=== PATIENT | female | born 1945 | race Caucasian/White ===

== ENCOUNTER 2021-11-05 14:50 | Emergency (ER) | payer MEDICARE, MEDICAID, SELFPAY ==
--- NOTE | ~2021-11-05 | XR_ITS ---
EXAMINATION: XR CHEST CLINICAL INFORMATION: Weakness COMPARISON: None TECHNIQUE: 2 views of the chest were obtained. FINDINGS: There are low lung volumes. No lobar or segmental airspace consolidation or definite groundglass opacity. The vascularity is normal. The heart is normal in size. The costophrenic sulci are clear. The hilar and mediastinal contours are normal. No visible acute bony abnormality. There are mild multilevel degenerative changes thoracic spine. XR/XR chest 2V IMPRESSION: Low lung volumes. No vascular congestion, definite airspace opacity, or effusion.
--- NOTE | ~2021-11-05 | CT_ITS ---
EXAMINATION: CT HEAD WITHOUT CONTRAST CLINICAL INFORMATION: Right-sided weakness COMPARISON: None TECHNIQUE: Contiguous axial imaging was performed from the skull base to vertex without intravenous administration of contrast. This CT examination was performed using dose optimization techniques as appropriate, variously including the following: *Automated exposure control *Adjustment of mA and/or kV according to patient size (this includes techniques or standardized protocols for targeted exams where dose is matched to indication/reason for exam; i.e. extremities or head) *Use of iterative reconstruction technique DLP: 1363 mGy-cm FINDINGS: There is no evidence of an extra-axial collection. There is no evidence of intra-axial or extra-axial hemorrhage. The ventricles and extra-axial CSF spaces are slightly prominent suggestive of age related changes. There is mild periventricular white matter disease. There is an old-appearing left basal ganglia lacunar infarct. No mass, mass effect or acute infarct is seen. No skull fracture or bone lesion is seen. There is mild soft tissue opacification of the right inferior mastoid air cells. CT/CT head/brain wo con IMPRESSION: No acute intracranial. Mild generalized atrophy and nonspecific periventricular white matter disease. Old-appearing left basal ganglia lacunar infarct. Findings were communicated to Dr. Trujillo by telephone on 11/05/2021 3:25 PM
--- NOTE | 2021-11-05 15:03 | ECG_ITS ---
Test Reason : STROKE? Blood Pressure : / mmHG Vent. Rate : 080 BPM Atrial Rate : 080 BPM P-R Int : 146 ms QRS Dur : 066 ms QT Int : 374 ms P-R-T Axes : 014 043 036 degrees QTc Int : 431 ms Normal sinus rhythm Normal ECG No previous ECGs available Referred By: Param Trujillo Electronically Signed By:RENATA ESTRADA
[2021-11-05 15:10] VITALS: BP 140/73; O2SAT 96
--- NOTE | 2021-11-05 15:21 | ED.NEUROSD ---
HPI - Neuro Symptoms/Deficit General Chief Complaint: Stroke Stated Complaint: R SIDE DEFICIT,DROOP HALF HOUR AGO PER SNF Time Seen by Provider: 11/05/21 15:02 Source: patient, EMS and other (half-way records) Mode of arrival: EMS History of Present Illness HPI Narrative: Patient without apparent history of TIA or stroke, with a last known well time of 130 when she was interacting with staff at the facility in which she lives, was discovered at 2:00 p.m. to be asleep in leaning to the right and drooling. Staff was concerned and thought she may have had some right-sided weakness. Called EMS for potential stroke. Of note, she apparently does drool when she sleeps. By EMS arrival, patient was moving all extremities normally. Speaking normally. Currently without complaints. She apparently has a history of dementia and is a word of the state. Poor historian secondary to this. Although she is able to hold conversation without difficulty. Related Data Allergies Allergy/AdvReac Type Severity Reaction Status Date / Time No Known Allergies Allergy Unverified 11/05/21 15:03 Review of Systems Constitutional: Comments: No fevers or chills Eyes: Comments: No vision change Cardiovascular: Comments: No chest pain Respiratory: Comments: No shortness of breath Gastrointestinal: Comments: No abdominal pain Integumentary/Breasts: Comments: No rash Neurologic: Comments: Possible transient right-sided weakness. [facility] Past Medical History Medical History (Updated 11/05/21 @ 17:30 by Param Trujillo MD) Anemia Dementia Dysphagia Edema Hyperkalemia OLVERA (nonalcoholic steatohepatitis) Social History Social History Alcohol intake: unknown Patient Tobacco Use Status: Tobacco use Unknown Use of substances other than those prescribed or required for medical reasons: Unknown Advance Directives: No Advance Directives Information Provided: No Physical Exam Vital Signs: Vital Signs: Last Vital Signs Temp 98.2 F 11/05/21 15:30 Pulse 79 11/05/21 17:21 Resp 16 11/05/21 17:21 BP 122/47 L 11/05/21 17:21 Pulse Ox 95 11/05/21 17:21 BMI result Body Mass Index 25.7 Const: Other: Awake and alert no acute distress Neck: Other: No bruits noted Resp: Other: Clear and equal bilaterally Cardio: Other: Regular rate and rhythm without murmurs rubs or gallops GI: Other: Soft nontender nondistended Skin: Other: Warm pink and dry Neuro: Other: Neurologically nonfocal. No facial droop No pronator drift Sales Relationship Manager equal bilaterally No unilateral lower extremity weakness Course Course Course Narrative: Patient with episode of drooling and leaning to the right side. Syncope TIA Seizures possible 5:28 p.m.. Workup in emergency department is reassuring. It is very likely this was not a thromboembolic TIA episode. Given risk benefit of hospitalization and reverse is being discharged to group setting where she will be supervised 08/06, I believe it is safe for discharge home. MDM - Neuro Symptoms/Deficit Lab Data Result diagrams: 11/05/21 15:37 11/05/21 15:37 Labs: Lab Results 11/05/21 11/05/21 11/05/21 Range/Units 15:37 15:37 15:37 WBC 11.3 H (4.8-10.8) X10*3/uL RBC 4.08 L (4.20-5.50) X10*6/uL Hgb 10.9 L (12.0-16.0) g/dl Hct 35.4 L (37.0-47.0) % MCV 86.8 (80.0-98.0) fL MCH 26.7 L (27.0-33.0) pg MCHC 30.8 L (31.0-35.0) g/dl RDW 14.6 (11.0-16.0) % Plt Count 279 (160-400) X10*3/uL MPV 12.2 (9.4-12.3) fL Immature Gran % (Auto) 0.4 (0.0-0.4) % Neut % (Auto) 72.0 (45-73) % Lymph % (Auto) 17.0 L (20-40) % [place] % (Auto) 8.2 (2-11) % Eos % (Auto) 2.1 (0-4) % Baso % (Auto) 0.3 (0-2) % Lymph # (Auto) 1.9 (1.2-4.9) X10*3/uL [place] # (Auto) 0.9 (0.1-1.2) X10*3/uL Eos # (Auto) 0.2 (0.0-0.4) X10*3/uL Baso # (Auto) 0.0 (0.0-0.2) X10*3/uL Abs Immat Gran (auto) 0.04 H (0.00-0.03) X10*3/uL Absolute Neuts (auto) 8.2 (2.0-8.3) x10*3/uL Absolute Nucleated RBC 0.000 (0.0-0.012) X10*3/uL Nucleated RBC % (auto) 0.0 (0.0-0.2) /100WBC PT (9.9-13.0) SEC INR (0.9-1.1) Sodium 141 (135-145) mmol/L Potassium 5.1 (3.3-5.1) mmol/L Chloride 104 (96-108) mmol/L Carbon Dioxide 27 (22-29) mmol/L Anion Gap 15 (12-20) BUN 22 H (9-16) mg/dL Creatinine 0.88 (0.5-1.4) mg/dL Estim Creat Clear Calc 50.3 Estimated GFR > 60 Random Glucose 108 (60-115) mg/dL Calcium 9.8 (8.4-10.2) mg/dL Total Bilirubin 0.3 (0.0-1.0) mg/dL AST 10 (5-31) U/L ALT 10 (0-31) U/L Alkaline Phosphatase 54 (39-117) U/L Total Protein 7.1 (6.5-8.0) g/dL Albumin 3.9 (3.5-5.0) g/dL Urine Color Urine Appearance Urine pH (5.0-8.0) Ur Specific [place] (1.005-1.025) Urine Protein (NEG-TRACE) MG/DL Urine Glucose (UA) (NEG) MG/DL Urine Ketones (NEG) MG/DL Urine Blood (NEG) Urine Nitrite (NEG) Ur Leukocyte Esterase (NEG) Urine RBC (0) /HPF Urine WBC (0-4) /HPF Ur Squamous Epith Cells /LPF Urine Bacteria /LPF COVID-19 (ANGELICA) Negative (Negative) COVID-19 Clin Com See Note 11/05/21 11/05/21 Range/Units 15:37 16:30 WBC (4.8-10.8) X10*3/uL RBC (4.20-5.50) X10*6/uL Hgb (12.0-16.0) g/dl Hct (37.0-47.0) % MCV (80.0-98.0) fL MCH (27.0-33.0) pg MCHC (31.0-35.0) g/dl RDW (11.0-16.0) % Plt Count (160-400) X10*3/uL MPV (9.4-12.3) fL Immature Gran % (Auto) (0.0-0.4) % Neut % (Auto) (45-73) % Lymph % (Auto) (20-40) % [place] % (Auto) (2-11) % Eos % (Auto) (0-4) % Baso % (Auto) (0-2) % Lymph # (Auto) (1.2-4.9) X10*3/uL [place] # (Auto) (0.1-1.2) X10*3/uL Eos # (Auto) (0.0-0.4) X10*3/uL Baso # (Auto) (0.0-0.2) X10*3/uL Abs Immat Gran (auto) (0.00-0.03) X10*3/uL Absolute Neuts (auto) (2.0-8.3) x10*3/uL Absolute Nucleated RBC (0.0-0.012) X10*3/uL Nucleated RBC % (auto) (0.0-0.2) /100WBC PT 11.9 (9.9-13.0) SEC INR 1.0 (0.9-1.1) Sodium (135-145) mmol/L Potassium (3.3-5.1) mmol/L Chloride (96-108) mmol/L Carbon Dioxide (22-29) mmol/L Anion Gap (12-20) BUN (9-16) mg/dL Creatinine (0.5-1.4) mg/dL Estim Creat Clear Calc Estimated GFR Random Glucose (60-115) mg/dL Calcium (8.4-10.2) mg/dL Total Bilirubin (0.0-1.0) mg/dL AST (5-31) U/L ALT (0-31) U/L Alkaline Phosphatase (39-117) U/L Total Protein (6.5-8.0) g/dL Albumin (3.5-5.0) g/dL Urine Color YELLOW Urine Appearance HAZY Urine pH 7.0 (5.0-8.0) Ur Specific [place] 1.010 (1.005-1.025) Urine Protein NEG (NEG-TRACE) MG/DL Urine Glucose (UA) NEG (NEG) MG/DL Urine Ketones NEG (NEG) MG/DL Urine Blood NEG (NEG) Urine Nitrite NEG (NEG) Ur Leukocyte Esterase TRACE H (NEG) Urine RBC 0-2 (0) /HPF Urine WBC 1-4 (0-4) /HPF Ur Squamous Epith Cells TRACE /LPF Urine Bacteria TRACE /LPF COVID-19 (ANGELICA) (Negative) COVID-19 Clin Com NIH Stroke Scale Time: 03:18 Level of Consciousness: Alert Level of Consciousness Questions: Answers both questions correctly Level of Consciousness Commands: Performs both tasks correctly Best Gaze: Normal Visual: No visual loss Facial Palsy: Normal Motor Arm (Right): No drift Motor Arm (Left): No drift Motor Leg (Right): No drift Motor Leg (Left): No drift Limb Ataxia: Absent Sensory: Normal Best Language: No aphasia Dysarthia: Normal Extinction and Inattention: No abnormality Score: 0 Discharge Plan Discharge Clinical Impression: Transient cerebral ischemia Patient Disposition: Home, Self-Care Instructions: Transient Ischemic Attack (ED) Additional Instructions: Workup in emergency department is reassuring. It is possible you had a transient ischemic attack. Be sure to follow-up with your primary care physician as well as Neurology. She referral Referrals: Romina Oliver MD [Physician] - 2 days Interventions: ED Discharge Assessment Last Done: 11/05/21 19:17 Discharge Date/Time: 11/05/21 19:19
[2021-11-05 15:24] VITALS: BP 158/59; PULSE 80; RESP 18; TEMP 36.8; O2SAT 96; BMI 25.7
[2021-11-05 15:30] VITALS: BP 158/59; PULSE 80; RESP 18; TEMP 36.8; O2SAT 96
--- NOTE | 2021-11-05 15:39 | MHC.STROKE ---
11/05/21 EMS PRE-NOTIFIED AT 1443, NOT A STROKE ALERT UNTIL WHEN SHE ARRIVED AT 1450. EXAMINED BY PROVIDER AND TO CT. I CALLED SNF AND SPOKE WITH THE NURSE. SHE SAID THAT THE PATIENT WAS LKW AT 1330 WHILE EATING LUNCH. AT 1400 THE NURSES AID FOUND THE PATIENT DROOLING OUT OF THE RIGHT SIDE OF HER MOUTH AND LEANING TO THE RIGHT (SHE DOES HAVE A HISTORY OF DROOLING). ALSO SOME RIGHT ARM AND LEG WEAKNESS, BY THE TIME THE EMS ARRIVED THE PATIENT WAS BACK TO HER BASELINE ACCORDING TO THE NURSE. THE BASELINE IS THAT SHE WALKS WITH A WALKER WITH ASSIST, SHE CAN EAT ON HER OWN. THEY ARE NOT SURE HOW LONG SHE HAS BEEN AT THIS FACILITY BUT SHE HAS BEEN AT OTHER FACILITIES AND IS ORIGINALLY FROM [facility]. THERE ARE GUARDIANSHIP PAPERS WITH THE PATIENT. THE PATIENT WAS ABLE TO TELL ME HER NAME AND , YOUSIF AND HOLD UP HER RIGHT ARM, AND MOVES THE RIGHT LEG, SHE MAY NEED TO GET UP AND WALK TO TEST GAIT AND DETERMINE IF SHE IS LEANING TO THE RIGHT. I DID A NURSING SWALLOW AND SHE PASSED ALTHOUGH SHE DOES HAVE A SLIGHT DELAY IN HER SWALLOW. SHE HAS A HISTORY OF DYSPHAGIA ON THE NOTES FROM THE LTC FACILITY. I REVIEWED THIS INFORMATION WITH THE PROVIDER. SHE IS EXCLUDED FROM TPA BASED ON HER EXAM AND NON-DISABLING SYMPTOMS MILD AND AT BASELINE. I WILL FOLLOW NEEDED.
[2021-11-05 15:45] LABS: MANUAL DIFF FLAG NO
[2021-11-05 15:50] LABS: Basophils Percent Auto 0.3 % (0-2); Eosinophils Absolute Auto 0.2 X10*3/uL (0.0-0.4); Eosinophils Percent Auto 2.1 % (0-4); Hematocrit 35.4 % (37.0-47.0); Hemoglobin 10.9 g/dl (12.0-16.0); Imm Gran Abs Auto 0.04 X10*3/uL (0.00-0.03); Imm Gran Pct Auto 0.4 % (0.0-0.4); Lymphocytes Absolute Auto 1.9 X10*3/uL (1.2-4.9); Mean Corpuscular HGB Conc 30.8 g/dl (31.0-35.0); Mean Corpuscular Hemoglobin 26.7 pg (27.0-33.0); Mean Corpuscular Volume 86.8 fL (80.0-98.0); Mean Platelet Volume 12.2 fL (9.4-12.3); Monocytes Absolute Auto 0.9 X10*3/uL (0.1-1.2); Monocytes Percent Auto 8.2 % (2-11); Neutrophils Absolute Auto 8.2 x10*3/uL (2.0-8.3); Platelet Count 279 X10*3/uL (160-400); Red Blood Count 4.08 X10*6/uL (4.20-5.50); Red Cell Distribution Width 14.6 % (11.0-16.0); White Blood Count 11.3 X10*3/uL (4.8-10.8)
[2021-11-05 16:00] LABS: Prothrombin Time 11.9 SEC (9.9-13.0)
[2021-11-05 16:03] LABS: COVID-19 Test Negative (Negative); IDNOW Serial# 9DD0AD1C
[2021-11-05 16:06] LABS: Alanine Aminotransferase 10 U/L (0-31); Albumin Level 3.9 g/dL (3.5-5.0); Alkaline Phosphatase 54 U/L (39-117); Anion Gap 15 (12-20); Aspartate Amino Transferase 10 U/L (5-31); Bilirubin Total 0.3 mg/dL (0.0-1.0); Blood Urea Nitrogen 22 mg/dL (9-16); Calcium 9.8 mg/dL (8.4-10.2); Carbon Dioxide 27 mmol/L (22-29); Chloride 104 mmol/L (96-108); Creatinine Clr Calc Pharmacy 50.3; Estimated Glomerular Filt Rate > 60; Glucose Random 108 mg/dL (60-115); Potassium 5.1 mmol/L (3.3-5.1); Sodium 141 mmol/L (135-145); Total Protein 7.1 g/dL (6.5-8.0)
[2021-11-05 16:43] LABS: Appearance Urine HAZY; Color Urine YELLOW; Glucose Urine UA NEG (NEG); Leukocyte Esterase Urine TRACE (NEG); Nitrite Urine NEG (NEG); UACC Culture Trigger YES; Urine Blood NEG (NEG); Urine Ketones NEG (NEG); Urine Protein NEG (NEG-TRACE)
[2021-11-05 16:53] LABS: Bacteria Urine TRACE /LPF; RBC Urine 0-2 /HPF (0); Squamous Epithelial Cell Urine TRACE /LPF
--- NOTE | 2021-11-05 17:20 | PC.NURSE ---
conversational with no acute deficits or distress
[2021-11-05 17:21] VITALS: BP 122/47; PULSE 79; RESP 16; O2SAT 95
--- NOTE | 2021-11-11 12:41 | MHC.STROKE ---
LDL 76, DISCUSSED WITH DR ABEBE AND IT WAS DECIDED NOT TO INCREASE DOSE OF STATIN, TOO CLOSE TO 70, WILL MONITOR AT THE FACILITY.
== END 2021-11-05 19:19 | disposition home or self-care (01) ==
PROVIDERS: Emergency Provider Emergency Medicine; PCP Internal Medicine
DX: G45.9 Transient cerebral ischemic attack, unspecified (principal); F03.90 Unspecified dementia, unspecified severity, without behavioral disturbance, psychotic disturbance, mood disturbance, and anxiety; Z86.73 Personal history of transient ischemic attack (TIA), and cerebral infarction without residual deficits
CPT/HCPCS: 36415; 70450; 71046; 80053; 81001; 85025; 85610; 87086; 87635; 93005; 99284; 99285

== ENCOUNTER 2021-11-06 14:07 | Inpatient (IN) | payer MEDICARE, MEDICAID, SELFPAY ==
[2021-11-06] VITALS (18 sets, daily range): BP systolic 121–178; BP diastolic 63–81; PULSE 68–73; RESP 15–20; TEMP 37; O2SAT 93–97; BMI 30.3
--- NOTE | ~2021-11-06 | CT_ITS ---
EXAMINATION: CTA NECK WITH CONTRAST (STROKE) CTA BRAIN WITH CONTRAST (STROKE) CLINICAL INFORMATION: Suspect acute stroke. Assess for major vessel occlusion. Please call report. COMPARISON: 11/06/2021 CT head same day. TECHNIQUE: CTA of the head and neck was performed in the axial plane from the mediastinum to the skull vertex using 65 mL Omnipaque 350 intravenous contrast. Additional reformatted multiplanar images including maximum intensity projection MIP images are generated on the CT workstation. This CT examination was performed using dose optimization techniques as appropriate, variously including the following: *Automated exposure control *Adjustment of mA and/or kV according to patient size (this includes techniques or standardized protocols for targeted exams where dose is matched to indication/reason for exam; i.e. extremities or head) *Use of iterative reconstruction technique DLP: 1549 mGy-cm FINDINGS: The degree of stenosis determined by criteria similar to NASCET. BRAIN: Postcontrast views demonstrate no evidence for acute infarct, extra-axial fluid collection, hemorrhage, space-occupying process or mass effect. There is evidence of a remote infarct in the left basal ganglia. There is a 5 mm round hypodensity in the left cerebral peduncle, which is a nonspecific finding. The ventricular system and subarachnoid spaces are consistent with mild volume loss without hydrocephalus. The bony structures appear grossly intact. The visualized airspaces are unopacified and there is nasal septal deviation to the right. CHEST CTA: There are partially calcified and noncalcified atheromatous changes throughout the visualized thoracic aortic arch. No significant luminal diameter reduction. There is a bovine origin of the left common carotid artery off the base of the innominate and thoracic aortic arch. There are atheromatous calcifications near the origin of the left subclavian artery without significant luminal diameter reduction. The proximal left common carotid artery demonstrates no significant luminal diameter reduction with some calcified plaque near its origin. The innominate artery is patent and normal in caliber with some calcified plaque at the origin of the right subclavian artery, which appears quite tortuous proximally but no significant focal stenosis. There is tortuosity of the proximal right common carotid artery which is otherwise normal in caliber. The vertebral artery origins are patent and normal in caliber bilaterally with tortuosity noted. NECK CTA: The vertebral arteries appear codominant and demonstrate no significant focal stenosis or segmental occlusion. The common carotid arteries demonstrate scattered calcified plaque throughout without focal stenosis. There is a small focus of calcified plaque at the left carotid bulb with less than 50% diameter reduction stenosis. Tortuosity of the proximal left ICA is noted. Left external carotid artery is patent and normal in caliber. Tiny focus of calcified plaque at the right carotid bulb with no significant luminal narrowing. Right external carotid artery is patent and normal in caliber. Both cervical ICAs are patent and normal in caliber. BRAIN CTA: The intradural vertebral arteries are patent with the left being dominant. The basilar artery, superior cerebellar and posterior cerebral arteries are patent, with a hypoplastic left P1 segment and a origin of the left [employer]. The intracranial internal carotid arteries are patent and normal in caliber with mild scattered mural calcifications through the carotid siphons. The M1 segments are patent and normal in caliber, with a normal appearance to the M2 branches. Centrilobular pulmonary emphysematous changes are seen in the upper lung zones with possible fibrotic changes at the right lung apex. CT/CT angio head neck stroke IMPRESSION: 1. No evidence for extracranial carotid or vertebral occlusion or significant focal stenosis and no evidence for significant intracranial arterial stenosis or occlusion. The major dural venous sinuses are opacified. 2. Generalized diffuse volume loss with a remote infarct in the left basal ganglia with no evidence for acute territorial infarct, significant space-occupying process or mass effect. Note is made of a 5 mm nonspecific hypodensity in the left cerebral peduncle. Recommend MRI of the brain without and with contrast to further assess this. Possibilities include a demyelinating lesion or small neoplasm. The above findings were conveyed directly by phone to Dr. Trujillo in the emergency department at 3:20 PM on 11/06/2021. This critical test result is communicated to: See above.
--- NOTE | ~2021-11-06 | MR_ITS ---
EXAMINATION: MRI OF THE BRAIN WITHOUT CONTRAST CLINICAL INFORMATION: Stroke. COMPARISON: CT head and CTA of the head and neck earlier 11/06/2021. TECHNIQUE: MRI of the brain was obtained using routine sequences without contrast. FINDINGS: There is a small area of restricted diffusion in the right posterior basal ganglia with mild hyperintense T2 and FLAIR signal, and without evidence of hemorrhagic transformation. No mass effect or midline shift is seen. The ventricles and sulci are commensurately prominent consistent with diffuse volume loss. There are moderate areas of hyperintense T2 and FLAIR signal in the periventricular and subcortical white matter, consistent with chronic microvascular ischemic changes. No extra-axial fluid collections are seen. The brainstem and cerebellum are normal. No pathologic magnetic susceptibility artifact is identified on the gradient refocused acquisition. The craniovertebral junction appears normal. There is moderate the fatty marrow. There is a partially empty sella. The major intracranial flow-voids at the level of the [place] are preserved. The dural venous sinus flow-voids are maintained. There is trace fluid at the right mastoid tip. There is mild mucoperiosteal thickening in the ethmoid sinuses. MR/MR head/brain wo con IMPRESSION: 1. There is a small area of acute infarction in the left basal ganglia without evidence of hemorrhagic transformation. No acute infarcts are demonstrated elsewhere and there are no masses or areas of hemorrhage. 2. There is diffuse volume loss and there are chronic microvascular ischemic changes. 3. This critical result was discussed with LEVI Phoenix by telephone on 11/06/2021 at 9:18 PM and it was ascertained that the content and urgency of the report was understood at the time of direct communication.
--- NOTE | ~2021-11-06 | XR_ITS ---
EXAMINATION: XR CHEST CLINICAL INFORMATION: CVA COMPARISON: 11/05/2021 TECHNIQUE: Relative expiratory portable 3:31 PM view of the chest was obtained. FINDINGS: No significant abnormality is noted involving the heart, lungs, mediastinum, bony thorax or soft tissues. XR/XR chest 1V IMPRESSION: Unremarkable examination.
--- NOTE | ~2021-11-06 | XR_ITS ---
EXAMINATION: XR ABDOMEN KUB CLINICAL INDICATION: Rule out metallic foreign body for MRI. COMPARISON: No similar priors. TECHNIQUE: AP view of the abdomen. FINDINGS: No unexpected radiopaque foreign bodies. Nonobstructive bowel gas pattern. Moderate to large amount of stool burden. Opacified urinary bladder and left greater than right collecting systems. No acute osseous abnormalities. Significant thoracolumbar spondylosis. Indeterminate soft tissue calcifications projecting over the left gluteal region. Visualized lung bases are clear. XR/XR KUB IMPRESSION: No unexpected radiopaque foreign bodies. Nonobstructive bowel gas pattern. Moderate to large stool burden.
--- NOTE | ~2021-11-06 | CT_ITS ---
EXAMINATION: CT HEAD WITHOUT CONTRAST (STROKE PROTOCOL) CLINICAL INFORMATION: Stroke protocol. Stroke with right-sided deficit. COMPARISON: Previous head CT from yesterday. TECHNIQUE: Contiguous axial imaging was performed from the skull base to vertex without intravenous administration of contrast. This CT examination was performed using dose optimization techniques as appropriate, variously including the following: *Automated exposure control *Adjustment of mA and/or kV according to patient size (this includes techniques or standardized protocols for targeted exams where dose is matched to indication/reason for exam; i.e. extremities or head) *Use of iterative reconstruction technique DLP: 836 mGy-cm FINDINGS: There is no evidence of an extra-axial collection. There is no evidence of intra-axial or extra-axial hemorrhage. The ventricles and extra-axial CSF spaces are slightly prominent suggestive of age-related changes. There is mild periventricular white matter disease. There is a left basal ganglia lacunar infarct that is similar to yesterday's exam. No mass, mass effect or acute infarct is seen. Review at bone windows is normal. No skull fracture is seen. Paranasal sinuses, left mastoid air cells and middle ears are clear. There is mild soft tissue opacification of the right inferior mastoid air cells. CT/CT head for stroke IMPRESSION: Left basal ganglia lacunar infarct similar to yesterday's exam. No hemorrhage. This could be further evaluated with MRI. This critical result was discussed with Dr. Trujillo at 2:40 PM on 11/06/2021. It was ascertained that the content and urgency of the report was understood at the time of direct communication.
--- NOTE | 2021-11-06 14:15 | ECG_ITS ---
Test Reason : STROKE Blood Pressure : / mmHG Vent. Rate : 069 BPM Atrial Rate : 069 BPM P-R Int : 152 ms QRS Dur : 068 ms QT Int : 412 ms P-R-T Axes : 058 056 048 degrees QTc Int : 441 ms Normal sinus rhythm Normal ECG When compared with ECG of 05-NOV-2021 15:23, No significant change was found Referred By: Param Trujillo Electronically Signed By:RENATA ESTRADA
--- NOTE | 2021-11-06 14:16 | ED_ITS ---
HPI - Neuro Symptoms/Deficit General Chief Complaint: Stroke Stated Complaint: STROKE ALERT ,R SIDE DEFICIT,LKWT 1HOUR Time Seen by Provider: 11/06/21 14:15 Source: patient, EMS, RN notes reviewed and old records reviewed History of Present Illness HPI Narrative: Patient seen here yesterday for a transient right-sided deficit with a negative workup. Discharged for outpatient TIA workup. Today she had witnessed onset of right-sided weakness again. Apparently she was being assisted in the shower by nursing staff when she developed a right facial droop with right arm and leg weakness. Still symptomatic upon EMS arrival and arrival to the hospital. EMS as her speech has gotten worse since their arrival. Patient denies headache. No other recent illnesses or complaints No prior history of stroke Related Data Allergies Allergy/AdvReac Type Severity Reaction Status Date / Time No Known Allergies Allergy Unverified 11/05/21 15:03 Review of Systems Review of Systems: Patient with aphasia limiting review of systems Cardiovascular: Comments: Regular rate and rhythm without murmurs rubs or gallops [facility] Past Medical History Medical History (Updated 11/06/21 @ 15:58 by Param Trujillo MD) Anemia Dementia Dysphagia Edema Hyperkalemia OLVERA (nonalcoholic steatohepatitis) Social History Social History Alcohol intake: unknown Patient Tobacco Use Status: Tobacco use Unknown Use of substances other than those prescribed or required for medical reasons: No Advance Directives: No Advance Directives Information Provided: No Physical Exam Vital Signs: Vital Signs: Last Vital Signs Pulse 70 11/06/21 15:45 Resp 17 11/06/21 15:45 BP 142/73 H 11/06/21 15:45 Pulse Ox 95 11/06/21 15:45 BMI result Body Mass Index 30.3 Const: Other: Awake. No apparent distress Eyes: Other: Pupils equal round reactive to light without dysconjugate gaze Resp: Other: Clear and equal bilaterally Cardio: Other: Regular rate and rhythm without murmurs rubs or gallops GI: Other: Soft nontender nondistended Skin: Other: Warm pink dry without rash Neuro: Other: Patient is awake. Right facial droop Right arm weakness Right leg weakness Aphasia with difficulty word finding and slurred speech Course Course Course Narrative: Patient with right-sided deficits secondary to acute stroke. Rule out intracranial hemorrhage Rule out large vessel occlusion Immediate neurologic consultation. Dr. Benito macedo to see the patient in the emergency department. CT scan shows no evidence of intracranial hemorrhage. TPA ordered. TPA was mixed shortly after patient arrival to prevent delays. 2:[address] angiography results assessing for possible large vessel occlusion. 3:57 p.m.. There is no large vessel occlusion. Will hospitalize MDM - Neuro Symptoms/Deficit Lab Data Result diagrams: 11/06/21 15:23 11/06/21 15:23 Labs: Lab Results 11/06/21 11/06/21 Range/Units 14:25 15:23 WBC 9.2 (4.8-10.8) X10*3/uL RBC 3.91 L (4.20-5.50) X10*6/uL Hgb 10.7 L (12.0-16.0) g/dl Hct 34.1 L (37.0-47.0) % MCV 87.2 (80.0-98.0) fL MCH 27.4 (27.0-33.0) pg MCHC 31.4 (31.0-35.0) g/dl RDW 14.8 (11.0-16.0) % Plt Count 248 (160-400) X10*3/uL MPV 12.2 (9.4-12.3) fL Immature Gran % (Auto) 0.2 (0.0-0.4) % Neut % (Auto) 59.0 (45-73) % Lymph % (Auto) 29.4 (20-40) % [place] % (Auto) 8.8 (2-11) % Eos % (Auto) 2.4 (0-4) % Baso % (Auto) 0.2 (0-2) % Lymph # (Auto) 2.7 (1.2-4.9) X10*3/uL [place] # (Auto) 0.8 (0.1-1.2) X10*3/uL Eos # (Auto) 0.2 (0.0-0.4) X10*3/uL Baso # (Auto) 0.0 (0.0-0.2) X10*3/uL Abs Immat Gran (auto) 0.02 (0.00-0.03) X10*3/uL Absolute Neuts (auto) 5.5 (2.0-8.3) x10*3/uL Absolute Nucleated RBC 0.000 (0.0-0.012) X10*3/uL Nucleated RBC % (auto) 0.0 (0.0-0.2) /100WBC POC Glucose 95 (60-115) mg/dL NIH Stroke Scale Time: 14:53 Level of Consciousness: Alert Level of Consciousness Questions: Answers both questions correctly Level of Consciousness Commands: Performs both tasks correctly Best Gaze: Normal Visual: No visual loss Facial Palsy: Partial paralysis Motor Arm (Right): Some effort against gravity Motor Arm (Left): No drift Motor Leg (Right): No drift Motor Leg (Left): Some effort against gravity Limb Ataxia: Absent Sensory: Normal Best Language: Mild to moderate aphasia Dysarthia: Mild to moderate dysarthria Extinction and Inattention: No abnormality Score: 8 Critical Care Time Critical Care Time Total Critical Care Time: 120 Attestation: Critical care time outside separately billable procedures. Acute stroke with thrombolytics therapy Discharge Plan Discharge Patient Disposition: Admitted As Inpatient
[2021-11-06 14:32] LABS: Glucose, Whole Blood 95 mg/dL (60-115)
[2021-11-06] MEDS: iohexoL 350 MG/ML 100 ML INFUS..BTL IV (14:45)
--- NOTE | 2021-11-06 15:08 | PM.NEUROCN ---
History of Present Illness Data of Consult Service Date: 11/06/21 [facility] Reason for consult: Stroke 76 years old woman with acute onset of right-sided weakness came to emergency room. Apparently it started about half an hour before. She had stroke-like symptoms yesterday and came to emergency room with resolution of symptoms and mostly negative workup and was discharged. Today she came back with new weakness. There was no associated pain or headache or nausea or vomiting or any speech or language difficulty. There was no chest pain or shortness of breath. Review of Systems Review of Systems: As in HPI [facility] Past Medical History Medical History (Updated 11/06/21 @ 15:11 by Romina Oliver MD) Anemia Dementia Dysphagia Edema Hyperkalemia OLVERA (nonalcoholic steatohepatitis) Social History Social History Alcohol intake: unknown Patient Tobacco Use Status: Tobacco use Unknown Meds Allergies Allergy/AdvReac Type Severity Reaction Status Date / Time No Known Allergies Allergy Unverified 11/05/21 15:03 Physical Exam Neuro: Other: She was drowsy but promptly able to open eyes make a conversation and follow commands. In between she would close her eyes. There was mild right-sided facial flatness. Visual mitchell are full. Speech was normal. She denied that there was any pain. She told me her name and followed one-step commands. Right arm was moderately weak. She was able to lift each leg up against gravity. Results Labs Labs: Noncontrast head CT did not reveal any acute abnormality. Assessment and Plan (1) Stroke: Status: Acute 76 years old woman with acute onset of right-sided weakness. On examination she has right face and arm weakness more than leg. Head CT did not reveal any acute pathology. With suspicion of acute ischemic infarct my advice was to treat her with intravenous tPA. An MRI of brain without contrast is recommended for tomorrow. Otherwise her CTA results were pending. If any large vessel disease is detected intra-arterial treatment can be considered Procedures Date of Service Date of Service: 11/06/21
--- NOTE | 2021-11-06 15:25 | MHC.STROKE ---
Addendum entered by Lillie Baker RN 11/07/21 14:45: CLARIFICATION ON [id number] (TPA ALTEPLASE) = 39 MINUTES, I SPOKE WITH DR CRISOSTOMO AND HE EXAMINED THE PATIENT IN PERSON, SHE HAS A HISTORY OF SCHIZOAFFECTIVE DISORDER AND SHE IS FROM A LTC PSYCH FACILITY, IT WAS IMPORTANT FOR THE CARE TEAM TO DETERMINE ELIGIBILITY PRIOR TO TPA, SHE WOULDN'T MOVE BOTH LEGS, THEN SHE DID MOVE THEM, SHE WAS ANSWERING QUESTIONS, THEN SHE WASN'T , HER EXAM WAS INCONSISTENT, I WAS PRESENT THROUGHOUT THIS TIME FRAME. Addendum entered by Lillie Baker RN 11/06/21 16:56: I REVIEWED LTC NOTES FROM [facility] [place] [facility] [place]. SHE HAS BEEN A [facility] OF THE [facility] SINCE 2016. HER PMH AND MEDICATIONS ARE INCLUDED. I GAVE THIS PAPAERWORK TO DR BERNARD. Addendum entered by Lillie Baker RN 11/06/21 15:37: NO LVO ON CTA H/N, [place] [facility] [place] Original Note: 1406 EMS PRE-NOTIFIED STROKE ALERT, ARRIVED AT 1407, WITNESSED ONSET WHILE IN SHOWER WITH STAFF MEMBER AT APPROX. [address]10. DIRECT TO CT, DOOR-TO-CT = 9 MINUTES, NO BLEED, AND CTA H/N DONE WITH 7 MINUTE DELAY, AWAITING CALL BACK TO SEE IF SHE IS A LVO AND A THROMBECTOMY CANDIDATE. NIHSS = 8 DONE UPON ARRIVAL, RIGHT SIDED WEAKNESS FACIAL DROOP, RIGHT ARM FLACID, RIGHT LEG WEAK BUT MOVES. SEE DR JOSE'S NIHSS AND DOCUMENTATION. DR CRISOSTOMO AT THE BEDSIDE, ELIBIBLE FOR TPA (ALTEPLASE) BP 158/74, TPA BOLUS GIVEN AT 1446 OVER 1 MINUTE, ALTEPLASE DRIP HUNG IMMEDIATELY AFTER BOLUS FINISHED. CFLS-MK-[id number] = 39 MINUTES, KEEPING PATIENT NPO, NURSING SWALLOW SCREEN FAILED, RE-TEST IN 6 HOURS. FREQUENT VITALS AND NEURO'S BEING DONE, PATIENT IS NOW MOVING RIGHT ARM AND HOLDING IT UP WITH ONLY A SLIGHT DRIFT. STROKE EDUCATION INITIATED AND PATIENT IS ABLE TO UNDERSTAND. I WILL CONTINUE TO FOLLOW.
[2021-11-06 15:40] LABS: MANUAL DIFF FLAG NO
--- NOTE | 2021-11-06 15:40 | PC.NURSE ---
pt brought to ed [facility]. per ems at approximately 1310 pt was being given a bath and was noted to be weak and limp on the right side along with facial drooping. on arrival to ed pt brought to ct scan and TPA given per doctor's order and stroke protocol. vss as documented. reported off to oncoming 3-11 RN.
[2021-11-06 15:49] LABS: Basophils Percent Auto 0.2 % (0-2); Eosinophils Absolute Auto 0.2 X10*3/uL (0.0-0.4); Eosinophils Percent Auto 2.4 % (0-4); Hematocrit 34.1 % (37.0-47.0); Hemoglobin 10.7 g/dl (12.0-16.0); Imm Gran Abs Auto 0.02 X10*3/uL (0.00-0.03); Imm Gran Pct Auto 0.2 % (0.0-0.4); Lymphocytes Absolute Auto 2.7 X10*3/uL (1.2-4.9); Lymphocytes Percent Auto 29.4 % (20-40); Mean Corpuscular HGB Conc 31.4 g/dl (31.0-35.0); Mean Corpuscular Hemoglobin 27.4 pg (27.0-33.0); Mean Corpuscular Volume 87.2 fL (80.0-98.0); Mean Platelet Volume 12.2 fL (9.4-12.3); Monocytes Absolute Auto 0.8 X10*3/uL (0.1-1.2); Monocytes Percent Auto 8.8 % (2-11); Neutrophils Absolute Auto 5.5 x10*3/uL (2.0-8.3); Platelet Count 248 X10*3/uL (160-400); Red Blood Count 3.91 X10*6/uL (4.20-5.50); Red Cell Distribution Width 14.8 % (11.0-16.0); White Blood Count 9.2 X10*3/uL (4.8-10.8)
--- NOTE | 2021-11-06 15:52 | PC.NURSE ---
Assumed care of pt at this time: Pt lethargic but easily arousalable. Neuro assessment: No gauze noted but pt mainly R sided weakness vs L side. Drift also noted to R arm. Pupils 3-4mm equal and reactive. NSR and rales ausculated to lungs. Dry non productive cough noted. Pt abd rounded and non-tenderness. pricing coordinator was at bedside. Alteplase infusion will be complete in 3mins. Vitals remain stable.
[2021-11-06 15:58] LABS: Alanine Aminotransferase 10 U/L (0-31); Albumin Level 3.7 g/dL (3.5-5.0); Alkaline Phosphatase 53 U/L (39-117); Anion Gap 15 (12-20); Aspartate Amino Transferase 9 U/L (5-31); Bilirubin Total 0.3 mg/dL (0.0-1.0); Blood Urea Nitrogen 20 mg/dL (9-16); Calcium 9.6 mg/dL (8.4-10.2); Carbon Dioxide 26 mmol/L (22-29); Chloride 104 mmol/L (96-108); Creatinine Clr Calc Pharmacy 51.3; Estimated Glomerular Filt Rate > 60; Glucose Random 96 mg/dL (60-115); Potassium 4.7 mmol/L (3.3-5.1); Sodium 140 mmol/L (135-145)
[2021-11-06 16:02] LABS: COVID-19 Test Negative (Negative)
--- NOTE | 2021-11-06 16:05 | PC.NURSE ---
Alteplase completed infusion at this time
[2021-11-06 17:40] LABS: Troponin-I High Sensitivity < 3.5 ng/L (<3.5-17.0)
--- NOTE | 2021-11-06 18:02 | PC.NURSE ---
Unable to verify pt hx in terms of implants and foreign bodies via pt herself, and pt's family. MD Trujillo made aware and order placed for KUB (ABD and pelvis)- portable. Pending completion of this and then pt may go for MRI. RN will continue to monitor.
--- NOTE | 2021-11-06 18:33 | PHA.MEDREC ---
MED REC COMPLETE, NO ISSUES Pharmacy Consult ? Medication Reconciliation Pharmacy has completed the medication reconciliation.
--- NOTE | 2021-11-06 20:08 | P.HPCC_ITS ---
History of Present Illness Date of Service: 11/06/21 Attending physician on admission: Justin Leone Chief Complaint: right sided weakness Patient is a 76yo F with a past med hx of dementia, schizoaffective disorder, COPD on serevent, HTN, DM2 with neuropathy (MOSHE allergic), dyslipidemia, stres s/urgency urinary incontinence, chronic constipation, KEISHA non compliant with CPAP, OLVERA, anemia, hyperK, GERD, Parkinsonian tremor coming from [facility]. The pt had just been showered by the staff at the nursing home and when they went back to see her, she had a right sided facial droop so they called 911. EMS said pts symptoms were progressing during the ride to [facility], notably right sided facial weakness, aphasia, right sided arm and leg weakness. LKW time is approx 30-60 min [employer]. In the ED, ED physician noted the same symptoms, Dr Oliver evaluated pt, head CT was neg for hemmorhage and tPA was given at 2:46pm. ED physician stated her symptoms have improved slightly since tPA was given, notably the arm and leg weakness. According to [facility] records, pt normally ambulates with a walker. She is vaccinated for Covid-19x2 with a booster on 09/05/21 and flu on 09/25/21 Of note, pt was evaluated in this ED yesterday by the same ED physican but ruled out for a stroke as her workup was negative. Patients legal guardian and medical rep is Securities Research Analysttrina Trevizo [phone] and her brother is Leo Huertas [phone]. Her PCP at [facility] is Debra Limon [phone]. Pt will get an MRI and be admitted to the ICU for monitoring s/p stroke with tPA. Review of Systems Review of Systems: pt denies any sob, chest pain or abdominal pain Yes all other systems are reviewed and are negative Neurologic: Reports Abnormal speech present [facility] Past Medical History Medical History (Updated 11/06/21 @ 23:39 by Tammi Pulido PA-C) Anemia Dementia Dysphagia Edema Hyperkalemia OLVERA (nonalcoholic steatohepatitis) Social History Social History Housing: Other Housing Other:: [facility]. Do you presently have visiting nurse or other home services: No Alcohol intake: unknown Patient Tobacco Use Status: Tobacco use Unknown Use of substances other than those prescribed or required for medical reasons: No Advance Directives: No Advance Directives Information Provided: No Do you have thoughts of harming others: None Do you have a plan to hurt others: No Plan Recently lost weight without trying: Unsure Patient : No : No Poor oral hygiene: No Meds Allergies Allergy/AdvReac Type Severity Reaction Status Date / Time MOSHE Inhibitors Allergy Unknown Unknown Verified 11/06/21 23:27 aspirin Allergy Unknown unknown Verified 11/06/21 23:26 erythromycin base Allergy Unknown unknown Verified 11/06/21 23:26 NSAIDS (Non-Steroidal Allergy Unknown Unknown Verified 11/06/21 23:27 Anti-Inflamma Penicillins Allergy Unknown unknown Verified 11/06/21 23:28 Active Medications: Current Medications Pharmacy Consult (Consult Rx Perform Med Rec) 1 each MISCELLANE ONCE PRN PRN Reason: Consult order Sodium Chloride (0.9 % Sodium Chloride Flush 3 Ml Syringe) 3 ml IVFLUSH [facility] Home Medications Medication Instructions Recorded Confirmed Last Taken Type acetaminophen 500 mg tablet 1,000 mg PO BID 11/06/21 11/06/21 11/06/21 History clozapine 200 mg tablet 200 mg PO DAILY@1600 11/06/21 11/06/21 11/04/21 History clozapine 25 mg tablet 25 mg PO DAILY@1600 11/06/21 11/06/21 11/04/21 History clozapine 50 mg tablet 50 mg PO DAILY 11/06/21 11/06/21 11/06/21 History ergocalciferol (vitamin D2) 1,250 1,250 mcg PO QMONTH 11/06/21 11/06/21 Unknown History mcg (50,000 unit) capsule famotidine 20 mg tablet 20 mg PO DAILY 11/06/21 11/06/21 11/06/21 History haloperidol 1 mg tablet 1 mg PO DAILY 11/06/21 11/06/21 11/06/21 History metformin 1,000 mg tablet 1,000 mg PO BID 11/06/21 11/06/21 11/06/21 History salmeterol 50 mcg/dose blister 1 inh INHALATION BID 11/06/21 11/06/21 11/06/21 History powder for inhalation (Serevent Diskus) sennosides 8.6 mg tablet (senna) 17.2 mg PO BID 11/06/21 11/06/21 11/06/21 History simvastatin 10 mg tablet 10 mg PO QPM 11/06/21 11/06/21 11/04/21 History Physical Exam Vital Signs: Vital Signs: Last Vital Signs Pulse 68 11/06/21 19:24 Resp 16 11/06/21 19:24 BP 169/64 H 11/06/21 19:24 Pulse Ox 95 11/06/21 19:24 BMI result Body Mass Index 30.3 Const: General: cooperative, healthy appearing, comfortable, no acute distress and well developed Orientation/consciousness: patient oriented x3 Limitations: ambulation with walker HENMT: Head: Yes normal to inspection Face and sinus: No face symmetric (right sided facial droop) Eyes: General: appearance normal, both eyes and all related structures Pupils: Equal, round and reactive pupils present EOM: EOMs intact bilaterally Neck: Neck: Yes normal visual inspection and Yes full ROM Resp: Effort & Inspection: normal respiratory effort and able to speak in complete sentences Auscultation: clear to auscultation bilaterally Cardio: Rate: regular rate Rhythm: regular rhythm Heart sounds: normal S1 and S2 GI: Inspection: Yes normal to inspection Palpation (GI): Soft to palpation and nontender Skin: General skin exam: no rashes or lesions noted Neuro: General: patient oriented x3 and Unable to assess gait Cranial nerves: Yes Equal, round and reactive pupils present Cognition (Neuro): normal cognition Speech: Abnormal speech present Details: slurred Gait exam (Neuro): Unable to assess gait Motor exam (neuro): strength not 5/5 throughout (4/5 left side, 5/5 right side) Extrem: General: Yes normal to inspection and Yes no pedal edema Results Labs CBC and Chem 7: 11/06/21 15:23 11/06/21 15:23 Labs: Laboratory Results - last 24 hr 11/06/21 11/06/21 11/06/21 14:25 15:23 15:23 MCV 87.2 MCH 27.4 MCHC 31.4 RDW 14.8 Plt Count 248 MPV 12.2 Immature Gran % (Auto) 0.2 Neut % (Auto) 59.0 Lymph % (Auto) 29.4 Bartholomew % (Auto) 8.8 Eos % (Auto) 2.4 Baso % (Auto) 0.2 Lymph # (Auto) 2.7 Bartholomew # (Auto) 0.8 Eos # (Auto) 0.2 Baso # (Auto) 0.0 Abs Immat Gran (auto) 0.02 Absolute Neuts (auto) 5.5 Absolute Nucleated RBC 0.000 Nucleated RBC % (auto) 0.0 Anion Gap 15 Estim Creat Clear Calc 51.3 Estimated GFR > 60 POC Glucose 95 Random Glucose 96 Calcium 9.6 Total Bilirubin 0.3 AST 9 ALT 10 Alkaline Phosphatase 53 Troponin I High Sens Total Protein 7.0 Albumin 3.7 COVID-19 (ANGELICA) COVID-19 Clin Com 11/06/21 11/06/21 15:23 15:23 MCV MCH MCHC RDW Plt Count MPV Immature Gran % (Auto) Neut % (Auto) Lymph % (Auto) Bartholomew % (Auto) Eos % (Auto) Baso % (Auto) Lymph # (Auto) Bartholomew # (Auto) Eos # (Auto) Baso # (Auto) Abs Immat Gran (auto) Absolute Neuts (auto) Absolute Nucleated RBC Nucleated RBC % (auto) Anion Gap Estim Creat Clear Calc Estimated GFR POC Glucose Random Glucose Calcium Total Bilirubin AST ALT Alkaline Phosphatase Troponin I High Sens < 3.5 Total Protein Albumin COVID-19 (ANGELICA) Negative COVID-19 Clin Com See Note Imaging Radiologist's Impressions: Impressions Head CT 11/06/21 14:22 IMPRESSION: Left basal ganglia lacunar infarct similar to yesterday's exam. No hemorrhage. This could be further evaluated with MRI. This critical result was discussed with Dr. Trujillo at 2:40 PM on 11/06/2021. It was ascertained that the content and urgency of the report was understood at the time of direct communication. Head/Neck CTA 11/06/21 14:40 IMPRESSION: 1. No evidence for extracranial carotid or vertebral occlusion or significant focal stenosis and no evidence for significant intracranial arterial stenosis or occlusion. The major dural venous sinuses are opacified. 2. Generalized diffuse volume loss with a remote infarct in the left basal ganglia with no evidence for acute territorial infarct, significant space-occupying process or mass effect. Note is made of a 5 mm nonspecific hypodensity in the left cerebral peduncle. Recommend MRI of the brain without and with contrast to further assess this. Possibilities include a demyelinating lesion or small neoplasm. The above findings were conveyed directly by phone to Dr. Trujillo in the emergency department at 3:20 PM on 11/06/2021. This critical test result is communicated to: See above. Chest X-Ray 11/06/21 15:35 IMPRESSION: Unremarkable examination. KUB X-Ray 11/06/21 18:17 IMPRESSION: No unexpected radiopaque foreign bodies. Nonobstructive bowel gas pattern. Moderate to large stool burden. Assessment and Plan (1) Stroke: Status: Acute (2) Dementia: Status: Acute (3) OLVERA (nonalcoholic steatohepatitis): Status: Acute (4) COPD (chronic obstructive pulmonary disease): Status: Acute (5) DM2 (diabetes mellitus, type 2): Status: Acute (6) GERD (gastroesophageal reflux disease): Status: Acute (7) HLD (hyperlipidemia): Status: Acute (8) Schizoaffective disorder: Status: Acute (9) KEISHA (obstructive sleep apnea): Status: Acute (10) Incontinence of urine in female: Status: Acute (11) Chronic constipation: Status: Acute (12) Parkinsonian tremor: Status: Acute (13) Chronic hyponatremia: Status: Acute Patient given tPA at 2:46pm on 11/06/21, will monitor for 24 hours in ICU. Patient to get MRI tonight, echo ordered for tomorrow. Will continue home psych meds. Pt had trace leukocyte esterase in urine yesterday, will repeat.
[2021-11-06 21:37] LABS: Glucose, Whole Blood 101 mg/dL (60-115)
[2021-11-06] MEDS: 0.9 % Sodium Chloride Flush 3 ML SYRINGE IVFLUSH (23:26)
[2021-11-06 23:52] LABS: Appearance Urine CLEAR; Color Urine YELLOW; Glucose Urine UA NEG (NEG); Leukocyte Esterase Urine NEG (NEG); Nitrite Urine NEG (NEG); PH 5.5 (5.0-8.0); Specific Gravity - Urine 1.015 (1.005-1.025); Urine Blood NEG (NEG); Urine Ketones NEG (NEG); Urine Protein NEG (NEG-TRACE)
[2021-11-07] VITALS (17 sets, daily range): BP systolic 99–177; BP diastolic 50–80; PULSE 69–80; RESP 16–22; TEMP 36.1–37.3; O2SAT 92–98; BMI 28.4
--- NOTE | 2021-11-07 03:11 | PC.NURSE ---
CARE ASSUMED 23;15...AWAKE SPONTANEOUSLY..CONVERSES..ORIENTED TO PERSON ONLY..MILD RIGHT FACIAL DROOP...YOUSIF...EQUAL STRONG HANDGRASPS...MILD RIGHT LEG WEAKNESS BUT RAISES RIGHT LEG OFF BED SPONTANEOUSLY...INTERMITTANTLY AGITTED AND RESISTANT TO CARE....REFUSES SAO2 MONITORING..PULLED OFF MULTIPLE SAO2 PROBES...SAO2 94-96% ON ROOM AIR..ICU PA AWARE..TO SPOT CHECK SAO2...ZAVALA WITH LOW OUTPUT OVERNIGHT...PREVIOUSLY INCONTINANT LARGE AMOUNT PER SHIFT REPORT PRIOR TO ZAVALA INSERTION..TO MONITOR OUTPUT OVERNIGHT PER PA...NSR..NO ECTOPY..BP STABLE..COCCYX WITH PURPLISH DISCOLORATION...POSITIONED TO SIDE BUT PATIENT REMOVES PILLOW EACH TIME...DENIES VISUAL DIFFICULTY
[2021-11-07 05:50] LABS: MANUAL DIFF FLAG NO
[2021-11-07 05:57] LABS: Basophils Percent Auto 0.2 % (0-2); Eosinophils Absolute Auto 0.2 X10*3/uL (0.0-0.4); Eosinophils Percent Auto 2.5 % (0-4); Hematocrit 33.9 % (37.0-47.0); Hemoglobin 10.8 g/dl (12.0-16.0); Imm Gran Abs Auto 0.03 X10*3/uL (0.00-0.03); Imm Gran Pct Auto 0.3 % (0.0-0.4); Lymphocytes Absolute Auto 2.5 X10*3/uL (1.2-4.9); Lymphocytes Percent Auto 26.9 % (20-40); Mean Corpuscular HGB Conc 31.9 g/dl (31.0-35.0); Mean Corpuscular Hemoglobin 27.6 pg (27.0-33.0); Mean Corpuscular Volume 86.5 fL (80.0-98.0); Mean Platelet Volume 12.3 fL (9.4-12.3); Monocytes Absolute Auto 0.8 X10*3/uL (0.1-1.2); Monocytes Percent Auto 8.3 % (2-11); Neutrophils Absolute Auto 5.6 x10*3/uL (2.0-8.3); Neutrophils Percent Auto 61.8 % (45-73); Platelet Count 243 X10*3/uL (160-400); Red Blood Count 3.92 X10*6/uL (4.20-5.50); Red Cell Distribution Width 14.8 % (11.0-16.0); White Blood Count 9.1 X10*3/uL (4.8-10.8)
[2021-11-07 06:11] LABS: Anion Gap 19 (12-20); Blood Urea Nitrogen 18 mg/dL (9-16); Calcium 9.6 mg/dL (8.4-10.2); Carbon Dioxide 20 mmol/L (22-29); Chloride 106 mmol/L (96-108); Cholesterol 168 mg/dL; Estimated Glomerular Filt Rate > 60; Glucose Random 125 mg/dL (60-115); HDL Cholesterol 43 mg/dL; LDL Cholesterol Calculated 76 mg/dl; Potassium 4.9 mmol/L (3.3-5.1); Sodium 140 mmol/L (135-145); Triglycerides 248 mg/dL
[2021-11-07 07:24] LABS: Glucose, Whole Blood 120 mg/dL (60-115)
[2021-11-07 08:57] LABS: Prothrombin Time Whole Bld POC 12.2 sec (11.1-13.5)
--- NOTE | 2021-11-07 09:11 | MHC.STROKE ---
Addendum entered by Lillie Baker RN 11/07/21 14:36: DISCUSSED CASE WITH DR BERNARD, PATIENT IS STABLE AND CAN BE TRANSFERRED OUT OF ICU TO A MONITORED UNIT. SHE CAN START ANTIPLATELET ASPIRIN 81MG AFTER 1600 TODAY. SHE WILL ALSO NEED VTE PROPHYLAXIS. I DID PASS THIS ON TO THE HOSPITALIST SERVICE. SEEN BY PT, SEE NOTES. Original Note: I MET WITH THE PATIENT TODAY, HER MAP WAS LESS THAN 90 A FEW TIMES DURING THE NIGHT, LOW URINE OUTPUT. I NOTIFIED DR BERNARD AND HE HAS ORDERED IVF. I DID A BEDSIDE NURSING SWALLOW SCREEN AND SHE PASSED BUT SHE HAS A SLIGHT DELAY IN SWALLOW. I DID NOTIFY SPEECH AND THEY WILL DO A SWALLOW EVALUATION AND RECOMMEND A DIET. I REVIEWED ALL OF THIS WITH THE NURSE IRASEMA. CURRENTLY SHE IS HAVING A BEDSIDE ECHO. HER MRI + FOR A LEFT BASAL GANGLIA ISCHEMIC STROKE WHICH CORRELATED WITH HER SYMPTOMS. I WILL CONTINUE TO FOLLOW.
[2021-11-07] MEDS: 0.9 % Sodium Chloride Flush 3 ML SYRINGE IVFLUSH ×2 (10:24→16:29)
[2021-11-07] MEDS: Lactated Ringers 1,000 ML 500 ML IV (10:36)
[2021-11-07 11:24] LABS: Glucose, Whole Blood 114 mg/dL (60-115)
--- NOTE | 2021-11-07 11:52 | P.PNCC_ITS ---
Subjective Subjective Date of Service: 11/07/21 Interval History: Mrs. Huertas was admitted to ICU yesterday for monitoring after being given tPA for a stroke. See yesterday?s H&P for details.? The patient is a 76yo F.? BIBA with right hemiparesis and dysphasia.? Head CT neg for hemorrhage.? tPA was given.? Her right sided weakness and dysphagia improved somewhat while still in the ED. CT angio showed no occlusion or focal stenosis.? There was generalized volume loss.? There was remote infarct in left basal ganglia. ?MRI last night showed a small area of acute infarction in the left basal ganglia. On arrival to the ICU, speech was slurred.? According to the admission note, motor strength was rated as 4/5 on left, and 5/5 on the right. Overnight the patient did well.? This morning she is fully awake.? See vital signs below.? She is breathing easy, with sat 95-98% on room air.? She still has some mild dysphagia and word-finding difficulty.? She passed a bedside swallow eval.? She has a very slight right eye droop and slight right facial droop. ?On neurologic testing, she has barely discernible weakness of the right upper extremity, and probably normal strength in the right lower extremity. LABORATORY DATA:? Below.? Transthoracic echo:? The study was fairly normal, notable findings were grade 1 diastolic dysfunction. IMPRESSION: Acute left basal ganglia infarction. ?Starting ASA this evening. ?Continue simvastatin.? F/U per Dr. Oliver. Stable for transfer to med surg.? I will sign out to the hospitalists. Time:? [id number] Critical Care Time (minutes): 0 Physical Exam Vital Signs: Vital Signs: Last Vital Signs Temp 99.1 F 11/07/21 10:00 Pulse 73 11/07/21 11:05 Resp 18 11/07/21 11:00 BP 108/63 11/07/21 11:05 Pulse Ox 92 11/07/21 11:05 BMI result Body Mass Index 28.4 Objective Data Labs CBC & Chem 7: 11/07/21 05:16 11/07/21 05:16 Labs: Laboratory Results - last 24 hr 11/06/21 11/06/21 11/06/21 14:25 14:26 15:23 WBC 9.2 RBC 3.91 L Hgb 10.7 L Hct 34.1 L MCV 87.2 MCH 27.4 MCHC 31.4 RDW 14.8 Plt Count 248 MPV 12.2 Immature Gran % (Auto) 0.2 Neut % (Auto) 59.0 Lymph % (Auto) 29.4 Harney % (Auto) 8.8 Eos % (Auto) 2.4 Baso % (Auto) 0.2 Lymph # (Auto) 2.7 Harney # (Auto) 0.8 Eos # (Auto) 0.2 Baso # (Auto) 0.0 Abs Immat Gran (auto) 0.02 Absolute Neuts (auto) 5.5 Absolute Nucleated RBC 0.000 Nucleated RBC % (auto) 0.0 Whole Blood PT 12.2 Whole Blood INR 1.0 Sodium Potassium Chloride Carbon Dioxide Anion Gap BUN Creatinine Estim Creat Clear Calc Estimated GFR POC Glucose 95 Random Glucose Calcium Total Bilirubin AST ALT Alkaline Phosphatase Troponin I High Sens Total Protein Albumin Triglycerides Cholesterol LDL Cholesterol, Calc HDL Cholesterol Urine Color Urine Appearance Urine pH Ur Specific [place] Urine Protein Urine Glucose (UA) Urine Ketones Urine Blood Urine Nitrite Ur Leukocyte Esterase COVID-19 (ANGELICA) [employer] 11/06/21 11/06/21 11/06/21 15:23 15:23 15:23 WBC RBC Hgb Hct MCV MCH MCHC RDW Plt Count MPV Immature Gran % (Auto) Neut % (Auto) Lymph % (Auto) Harney % (Auto) Eos % (Auto) Baso % (Auto) Lymph # (Auto) Harney # (Auto) Eos # (Auto) Baso # (Auto) Abs Immat Gran (auto) Absolute Neuts (auto) Absolute Nucleated RBC Nucleated RBC % (auto) Whole Blood PT Whole Blood INR Sodium 140 Potassium 4.7 Chloride 104 Carbon Dioxide 26 Anion Gap 15 BUN 20 H Creatinine 0.83 Estim Creat Clear Calc 51.3 Estimated GFR > 60 POC Glucose Random Glucose 96 Calcium 9.6 Total Bilirubin 0.3 AST 9 ALT 10 Alkaline Phosphatase 53 Troponin I High Sens < 3.5 Total Protein 7.0 Albumin 3.7 Triglycerides Cholesterol LDL Cholesterol, Calc HDL Cholesterol Urine Color Urine Appearance Urine pH Ur Specific [place] Urine Protein Urine Glucose (UA) Urine Ketones Urine Blood Urine Nitrite Ur Leukocyte Esterase COVID-19 (ANGELICA) Negative [employer] See Note 11/06/21 11/06/21 11/07/21 21:33 23:30 05:16 WBC 9.1 RBC 3.92 L Hgb 10.8 L Hct 33.9 L MCV 86.5 MCH 27.6 MCHC 31.9 RDW 14.8 Plt Count 243 MPV 12.3 Immature Gran % (Auto) 0.3 Neut % (Auto) 61.8 Lymph % (Auto) 26.9 Harney % (Auto) 8.3 Eos % (Auto) 2.5 Baso % (Auto) 0.2 Lymph # (Auto) 2.5 Harney # (Auto) 0.8 Eos # (Auto) 0.2 Baso # (Auto) 0.0 Abs Immat Gran (auto) 0.03 Absolute Neuts (auto) 5.6 Absolute Nucleated RBC 0.000 Nucleated RBC % (auto) 0.0 Whole Blood PT Whole Blood INR Sodium Potassium Chloride Carbon Dioxide Anion Gap BUN Creatinine Estim Creat Clear Calc Estimated GFR POC Glucose 101 Random Glucose Calcium Total Bilirubin AST ALT Alkaline Phosphatase Troponin I High Sens Total Protein Albumin Triglycerides Cholesterol LDL Cholesterol, Calc HDL Cholesterol Urine Color YELLOW Urine Appearance CLEAR Urine pH 5.5 Ur Specific [place] 1.015 Urine Protein NEG Urine Glucose (UA) NEG Urine Ketones NEG Urine Blood NEG Urine Nitrite NEG Ur Leukocyte Esterase NEG COVID-19 (ANGELICA) COVID-19 [employer] 11/07/21 11/07/21 11/07/21 05:16 07:21 11:20 WBC RBC Hgb Hct MCV MCH MCHC RDW Plt Count MPV Immature Gran % (Auto) Neut % (Auto) Lymph % (Auto) Harney % (Auto) Eos % (Auto) Baso % (Auto) Lymph # (Auto) Harney # (Auto) Eos # (Auto) Baso # (Auto) Abs Immat Gran (auto) Absolute Neuts (auto) Absolute Nucleated RBC Nucleated RBC % (auto) Whole Blood PT Whole Blood INR Sodium 140 Potassium 4.9 Chloride 106 Carbon Dioxide 20 L Anion Gap 19 BUN 18 H Creatinine 0.84 Estim Creat Clear Calc 49.0 Estimated GFR > 60 POC Glucose 120 H 114 Random Glucose 125 H Calcium 9.6 Total Bilirubin AST ALT Alkaline Phosphatase Troponin I High Sens Total Protein Albumin Triglycerides 248 Cholesterol 168 LDL Cholesterol, Calc 76 HDL Cholesterol 43 Urine Color Urine Appearance Urine pH Ur Specific [place] Urine Protein Urine Glucose (UA) Urine Ketones Urine Blood Urine Nitrite Ur Leukocyte Esterase COVID-19 (ANGELICA) COVID-19 Clin Com Quality Stroke Does the patient have a stroke diagnosis?: Yes Reason for No Anti-thrombotic by Day Two: N/A - Med Ordered VTE Prior VTE?: No VTE Risk Level:: Medical - low VTE Device Contraindication: N/A - Device Ordered VTE Drug Contraindication: Treatment Not Indicated
--- NOTE | 2021-11-07 14:14 | MHC.SL.SWA ---
Speech Pathologist Impression: Oralpharyngeal Dysphagia Risk of Aspiration Due to: Reduced Cognition Dysphasia Diet Status: Upgrade Liquid Consistency and Strategies for Safe Swallow: Liquid Intake Recommendation: Thin Liquid Intake Strategies: Small Sips Solid Food Consistency: Dietary Recommendations: Grnd/Mech Altered (NDD2) Additional Modifications to Solid Foods: Oral Medication Intake: Whole with Puree Compensatory Strategies and Precautions to be Taken for Safe Swallow: Supervision While Eating and Drinking for Safe Swallow: Total Assistance Foods to Avoid: Difficult or hard to chew foods Swallowing Recommended Treatments: Compens. Strategy Educat. Recommendation for Speech: Inpatient Speech Therapy Comment: Pt presents with mild delay initiating swallow on all consistencies, and delayed oral phase on solids due to being edentulous. No clinical s/s aspiration on any consistency noted on today's evaluation. Recommend start THIN liquids, with GROUND/MECHANICAL Diet (NDD2) with Pills Whole in Puree. Pt. has difficulty masticating food, and would benefit from this softer diet consistency. Pt was able to drink/eat, but it is effortful at this time due to R sided weakness, and may be impulsive in amounts per bite or sip: Pt would benefit from assistance and monitoring during meals. Diet recommendations given verbally to MD and Nursing, followed by secure text to MD, Nursing, Irrigator Gravity Flow, Dietary. CAD TECHNICIAN to follow while inpatient to monitor toleration of diet consistency recommended, advance as needed. Frequency/Duration: Date Range for Service Req: Timeline to reassess: Production Zone Leader Clinican/Clinical Fellow: No Supervisory Statement: I have reviewed and agree with the student/clinical fellow's documentation: N/A Speech Language Pathologist: Vani Chatterjee M.A., CCC-CAD TECHNICIAN
[2021-11-07 16:13] LABS: Glucose, Whole Blood 126 mg/dL (60-115)
[2021-11-07] MEDS: cloZAPine 25 MG TABLET PO (16:28)
[2021-11-07] MEDS: metFORMIN HCl 1,000 MG TABLET 1000 MG PO (16:28)
[2021-11-07] MEDS: cloZAPine 100 MG TABLET 200 MG PO (16:28)
--- NOTE | 2021-11-07 16:50 | CA_ITS ---
Transthoracic Echocardiogram Patient (Last, First, Middle): Savanna Huertas, Gender: Female Date of : 1945 Age: 76 Procedure Date: 11/07/2021 Procedure Type: Transthoracic Echocardiogram Location: ICU Height: 152.4 cm Weight: 65.77 kg BSA: 1.63 m2 Heart Rate: bpm BP: 115 / 61 mmHg Geology Teacher: MARIAH Referring MD: Justin Leone MD Symptoms: Stroke Study Quality: Fair ECG Rhythm: Sinus Conclusions: - The left ventricular systolic function is normal. The visually estimated ejection fraction is between 60-65%. - There is mild calcification of the aortic valve. - Small plaque is seen in the sino tubular ridge. Findings Left Ventricle Normal left ventricular cavity size. There is normal left ventricular wall thickness. The left ventricular systolic function is normal. The visually estimated ejection fraction is between 60-65%. There is no evidence of regional wall motion abnormalities. Evidence suggests grade I (mild) diastolic dysfunction. Right Ventricle Normal right ventricular cavity size and systolic function. Atria Both atria are normal in size. Aortic Valve There is a normal trileaflet aortic valve. There is mild calcification of the aortic valve. There is no aortic valve stenosis. There is no aortic valve regurgitation. Mitral Valve The mitral valve appears normal. There is no mitral valve regurgitation. There is no mitral valve stenosis. Pulmonic Valve The pulmonic valve was not well visualized. Tricuspid Valve There is no tricuspid valve regurgitation. The pulmonary artery systolic pressure is over estimated. Great Vessels The asc aorta is normal in size. Small plaque is seen in the sino tubular ridge. Venous The inferior vena cava was not well visualized. The inferior vena cava is normal in size. Pericardium/Pleural Likely pericardial fat with trace effusion. Prior Study Comparison No prior study available for comparison. Measurements 2D Linear Measurements IVSd: 0.98 0.6-0.9/0.6-1.0 cm LVIDd: 3.60 3.9-5.3/4.2-5.9 cm LVIDd Index: 2.21 2.4-3.2/2.2-3.1 cm/m2 LVIDs: 2.48 2.0-3.6 cm LVPWd: 0.97 0.7-1.1 cm Ao Root: 3.00 2.1-3.5 cm LA Diam: 3.00 2.7-3.8/3.0-4.0 cm LAIDs Index: 1.84 1.5-2.3 cm/m2 LV Mass: 128.98 67-162/88-224 g LV Mass Index: 79.13 43-95/49-115 g/m2 LVOT Diam: 2.00 3.0+(-)1.3 cm Mitral Valve MV Pk E: 0.55 MV PK A: 0.87 MV Decel Time: 325.00 E/A: 0.60 E'Lateral: 7.83 E'Medial: 7.18 E/E' Med: 7.60 E/E' Lat: 7.00 PHT: 95.00 MVA PHT: 2.32 Decel Kent: 1.69 Aortic Valve AoV Pk Jayden: 0.83 AoV Mn Jayden: 0.51 AoV VTI: 0.16 AoV Pk Grad: 3.00 Aov Mn Grad: 1.00 ALVINA Cont.VTI: 2.04 LVOT LVOT Pk Jayden: 0.59 LVOT Mn Jayden: 0.37 LVOT VTI: 0.10 LVOT Pk Grad: 1.00 LVOT Mn Grad: 1.00 LVOT Diam: 2.00 LVOT Area: 3.14 Diastolic Function MV Pk E: 0.55 MV Pk A: 0.87 E/A: 0.60 E'Medial: 7.18 E/E' Med: 7.60 E' Laterial: 7.83 E/E' Lat: 7.00 Right Ventricle TAPSE (mm): 1.74 TVS' Jayden: 9.14 Tricuspid Valve RA Press: 8.00 Great Vessels Aorta Ao Root-2D: 3.00 2.0-3.7 cm Ao Asc: 2.30 2.1-3.4 cm Updated in Other Vendor System with Status of Final Allen Shaikh MD electronically signed on 11/07/2021 12:11:55 PM with status of Final
[2021-11-07 20:09] LABS: Glucose, Whole Blood 104 mg/dL (60-115)
[2021-11-07] MEDS: Atorvastatin Calcium 10 MG TABLET PO (21:11)
[2021-11-07] MEDS: Sennosides 8.6 MG TABLET 17.2 MG PO (21:11)
[2021-11-07] MEDS: Acetaminophen 325 MG TABLET 650 MG PO (21:11)
--- NOTE | 2021-11-07 21:35 | MHC.STROKE ---
PATIENT HAS AN ALLERGY TO ASPIRIN, CAN CONSIDER AN ALTERNATE ANTIPLATELET MEDICATION.
[2021-11-08] MEDS: 0.9 % Sodium Chloride Flush 3 ML SYRINGE IVFLUSH (00:31)
[2021-11-08 03:00] VITALS: BP 127/61; PULSE 63; RESP 17; TEMP 36; O2SAT 96
[2021-11-08 05:50] VITALS: BMI 25.3
[2021-11-08 07:00] VITALS: BP 119/54; PULSE 63; RESP 18; TEMP 36.5; O2SAT 98
[2021-11-08 07:39] LABS: Glucose, Whole Blood 110 mg/dL (60-115)
--- NOTE | 2021-11-08 09:38 | MHC.CM.PN ---
Addendum entered by Maren Monreal 11/08/21 13:14: GUARDIAN NOTIFIED OF DC VIA T/C Addendum entered by Maren Monreal 11/08/21 11:24: PT IS CLEARED TO DC BACK TO [facility] TODAY CM CALLED SNF AND SPOKE TO CHARGE NURSE ON THE 3RD FLOOR WHERE PT RESIDES HE REPORTED THEY WOULD BE ABLE TO TAKE PT BACK THIS AFTERNOON HE ALSO REQUESTED PTS DC PAPERWORK BE FAXED TO [phone] PT WILL DC BACK TO [facility] AT 1730 HOURS TODAY VIA [facility] Original Note: CM CONTACTED PTS LEGAL GUARDIAN, ABBIE ACUÑA [phone]. PT IS A LTC RESIDENT OF [facility] [place] SHE IS ABLE TO AMBULATE WITH A WALKER PTS PCP IS CHASE OLMEDO GUARDIANSHIP IS ON FILE IMM DELIVERED VIA T/C, A COPY WILL BE EMAILED TO ALMA ACUÑA PER HER REQUEST. EMAIL ADDRESS PROVIDED: [email or web address] DC PLAN IS FOR PT TO RETURN TO LTC AT [facility] VIA [facility]
--- NOTE | 2021-11-08 10:36 | MHC.SL.SWA ---
Speech Pathologist Impression: Oralpharyngeal Dysphagia Risk of Aspiration Due to: Reduced Cognition Dysphasia Diet Status: Upgrade Liquid Consistency and Strategies for Safe Swallow: Liquid Intake Recommendation: Thin Liquid Intake Strategies: Small Sips No Straws Solid Food Consistency: Dietary Recommendations: Grnd/Mech Altered (NDD2) Additional Modifications to Solid Foods: Oral Medication Intake: Whole with Puree Compensatory Strategies and Precautions to be Taken for Safe Swallow: Sitting Upright (90 deg) Liquids from Cup Alternate Liquids/Solids Supervision While Eating and Drinking for Safe Swallow: Total Assistance Foods to Avoid: Difficult or hard to chew foods Swallowing Recommended Treatments: Compens. Strategy Educat. Recommendation for Speech: Inpatient Speech Therapy Comment: Pt presents with mild delay initiating swallow on all consistencies, and delayed oral phase on solids due to being edentulous. No clinical s/s aspiration on any consistency noted on today's evaluation. Recommend start THIN liquids, with GROUND/MECHANICAL Diet (NDD2) with Pills Whole in Puree. Pt. has difficulty masticating food, and would benefit from this softer diet consistency. Pt was able to drink/eat, but it is effortful at this time due to R sided weakness, and may be impulsive in amounts per bite or sip: Pt would benefit from assistance and monitoring during meals. Diet recommendations given verbally to MD and Nursing, followed by secure text to MD, Nursing, Applied Computer Science Professor, Dietary. On 11/08 Pt was observed taking breakfast. Pt needed some assistance setting up tray, preparing food for bite sized pieces, but was otherwise able to feed self. Pt tolerating diet consistencies recommended well, no clinical s/s aspiration on liquid or solid consistencies noted. Continue with recommended diet. Frequency/Duration: Date Range for Service Req: Timeline to reassess: Entry Level Accounting Clerk Clinican/Clinical Fellow: No Supervisory Statement: I have reviewed and agree with the student/clinical fellow's documentation: N/A Speech Language Pathologist: Vani Chatterjee M.A., CCC-SENIOR WINDOWS SYSTEMS ADMINISTRATOR
[2021-11-08] MEDS: cloZAPine 25 MG TABLET 50 MG PO (11:01)
[2021-11-08] MEDS: Sennosides 8.6 MG TABLET 17.2 MG PO (11:03)
[2021-11-08] MEDS: Famotidine 20 MG TABLET PO ×2 (11:03→11:04)
[2021-11-08] MEDS: metFORMIN HCl 1,000 MG TABLET 1000 MG PO ×2 (11:03→17:54)
[2021-11-08] MEDS: Acetaminophen 325 MG TABLET 650 MG PO (11:03)
--- NOTE | 2021-11-08 11:08 | P.DS_ITS ---
DS: Providers Provider Date of Service: 11/08/21 Date of admission: 11/06/21 16:50 Primary care physician: Debra Limon MD Consults: 11/06/21 16:50 Consult to Neurology Routine Consulting Provider: Romina Oliver Reason for consultation: Stroke 11/07/21 14:15 Consult to Hospitalist Routine Consulting Provider: Arsenio Flores Reason For Exam: ICu downgrade DS: Diagnosis Discharge Diagnosis (1) Stroke: Status: Resolved (2) Dementia: (3) OLVERA (nonalcoholic steatohepatitis): (4) COPD (chronic obstructive pulmonary disease): (5) DM2 (diabetes mellitus, type 2): (6) GERD (gastroesophageal reflux disease): (7) HLD (hyperlipidemia): (8) Schizoaffective disorder: (9) KEISHA (obstructive sleep apnea): (10) Incontinence of urine in female: (11) Chronic constipation: (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 The patient is a 76yo F.? BIBA with right hemiparesis and dysphasia.? Head CT neg for hemorrhage.? tPA was given.? Her right sided weakness and dysphagia improved somewhat while still in the ED. CT angio showed no occlusion or focal stenosis.? There was generalized volume loss.? There was remote infarct in left basal ganglia. ?MRI last night showed a small area of acute infarction in the left basal ganglia. On arrival to the ICU, speech was slurred.? According to the admission note, motor strength was rated as 4/5 on left, and 5/5 on the right. Overnight the patient did well.? This morning she is fully awake.? See vital signs below.? She is breathing easy, with sat 95-98% on room air.? She still has some mild dysphagia and word-finding difficulty.? She passed a bedside swallow eval.? She has a very slight right eye droop and slight right facial droop. ?On neurologic testing, she has barely discernible weakness of the right upper extremity, and probably normal strength in the right lower extremity. Data: Transthoracic echo:? The study was fairly normal, notable findings were grade 1 diastolic dysfunction. IMPRESSION: ?Acute left basal ganglia infarction. ?To continue Statin, was not started on Aspirin due to unknown listed allergy, will therefore start Plavix instead To return to SNF Time Spent with Patient Time attestation: Total time spent providing and/or coordinating discharge services: Discharge coordination time: Greater than 30 minutes Quality: Stroke Does the patient have a stroke diagnosis?: No Physical Exam 2 Verdana 4l Vital Signs: Verdana 4d Verdana 4d Vital Signs: Verdana 4d Verdana 4Bd Last Vital Signs Verdana 4d College Teacher New 4d College Teacher New 4d Temp 97.7 F 11/08/21 07:00 College Teacher New 4d Pulse 63 11/08/21 07:00 College Teacher New 4d Resp 18 11/08/21 07:00 BP 119/54 L 11/08/21 07:00 Pulse Ox 98 11/08/21 07:00 BMI result Body Mass Index 25.3 Const: Other: General: AO X 3, no acute distress Resp: CTA bilateral CVS: S1,S2,RRR GI: +BS, NT, no distention Skin: No rash Neuro: motor grossly intact Psych: appropriate affect DS: Data Data Completed and Pending Labs on day of discharge: Laboratory Results - last 24 hr 11/07/21 11/07/21 11/07/21 11:20 16:08 20:02 POC Glucose 114 126 H 104 11/08/21 07:25 POC Glucose 110 Discharge Plan Discharge Anticipated Discharge Date/Time: 11/07/21 15:27 Patient Disposition: Xfer SNF Discharge Diagnosis: Stroke Referrals: Debra Limon MD [Primary Care Provider] - 1 Week Discharge Medications: New clopidogrel [Plavix] 75 mg tablet 75 mg PO DAILY Qty: 30 0RF Continued acetaminophen 500 mg Tablet 1,000 mg PO BID 0RF clozapine 200 mg Tablet 200 mg PO DAILY@1700 0RF Rx Instructions: TAKES WITH 25 MG TABLET FOR TOTAL DOSE OF 225 MG clozapine 25 mg Tablet 25 mg PO DAILY@1700 0RF Rx Instructions: TAKES WITH 200 MG TABLET FOR TOTAL DAILY DOSE OF 225 MG clozapine 50 mg Tablet 50 mg PO DAILY 0RF famotidine 20 mg Tablet 20 mg PO DAILY 0RF haloperidol 1 mg Tablet 1 mg PO DAILY 0RF Hold Instructions: Per MD decision at [facility] metformin 1,000 mg Tablet 1,000 mg PO BID 0RF sennosides [senna] 8.6 mg Tablet 17.2 mg PO BID 0RF Serevent Diskus 50 mcg/dose Blister With Device 1 inh INHALATION BID 0RF simvastatin 10 mg Tablet 10 mg PO QPM 0RF ergocalciferol (vitamin D2) 1,250 mcg (50,000 unit) Capsule 1,250 mcg PO QMONTH 0RF Discharge Orders: Discharge Order (Routine); Ordered 11/08/21 Ordered By: Arsenio Flores Diet: advance to usual diet and low salt diet Activity on Discharge: As tolerated Stand Alone Forms: Patient Portal Discharge page Care Plan Goals: Stroke prevention Health Concerns: stroke Plan of Treatment: Take Plavix and continue taking blood pressure medications and cholesterol medication Assessment: As above Discharge Date/Time: 11/08/21 19:36
[2021-11-08 12:12] VITALS: BP 123/56; PULSE 76; RESP 20; TEMP 36.1; O2SAT 92
[2021-11-08] MEDS: Clopidogrel Bisulfate 75 MG TABLET PO (12:21)
[2021-11-08 12:25] LABS: Glucose, Whole Blood 235 mg/dL (60-115)
--- NOTE | 2021-11-08 14:24 | PC.NURSE ---
Transfer report given to [facility] staff member.
[2021-11-08 16:00] VITALS: BP 130/60; PULSE 74; RESP 20; TEMP 36.9; O2SAT 94
[2021-11-08 17:32] LABS: Glucose, Whole Blood 307 mg/dL (60-115)
[2021-11-08] MEDS: cloZAPine 25 MG TABLET PO (17:54)
[2021-11-08] MEDS: cloZAPine 100 MG TABLET 200 MG PO (17:54)
== END 2021-11-08 19:36 | disposition skilled nursing facility (03) | DRG 62 ==
LOC: HO.ED 15:58 → HO.EDOVER 17:07 → HO.ICU 18:56 → HO.IMC 11-07 13:45
PROVIDERS: Admitting Provider Anesthesiology; Emergency Provider Emergency Medicine; PCP Internal Medicine; Visit Provider Internal Medicine
DX: I63.89 Other cerebral infarction (principal); G81.91 Hemiplegia, unspecified affecting right dominant side; Z20.822 Contact with and (suspected) exposure to COVID-19; R29.708 NIHSS score 8; R29.810 Facial weakness; E11.40 Type 2 diabetes mellitus with diabetic neuropathy, unspecified; G47.33 Obstructive sleep apnea (adult) (pediatric); J44.9 Chronic obstructive pulmonary disease, unspecified; K21.9 Gastro-esophageal reflux disease without esophagitis; G31.83 Neurocognitive disorder with Lewy bodies; F02.80 Dementia in other diseases classified elsewhere, unspecified severity, without behavioral disturbance, psychotic disturbance, mood disturbance, and anxiety; E78.5 Hyperlipidemia, unspecified; F25.9 Schizoaffective disorder, unspecified; K75.81 Nonalcoholic steatohepatitis (NASH); Z99.89 Dependence on other enabling machines and devices; Z91.19 Patient's noncompliance with other medical treatment and regimen; Z88.0 Allergy status to penicillin; Z88.6 Allergy status to analgesic agent; Z79.02 Long term (current) use of antithrombotics/antiplatelets; Z79.84 Long term (current) use of oral hypoglycemic drugs; Z79.899 Other long term (current) drug therapy
CPT/HCPCS: 36415; 70450; 70496; 70498; 70551; 71045; 71046; 74018; 80048; 80053; 80061; 81001; 81003; 82947; 84484; 85025; 85610; 87086; 87635; 92610; 93005; 93306; 97162; 97166; 99284; 99285; 99291; 99292; C1758; J2997; Q9967

== ENCOUNTER 2021-12-14 13:50 | Inpatient (IN) | payer MEDICARE, MEDICAID, SELFPAY ==
--- NOTE | ~2021-12-14 | CT_ITS ---
EXAMINATION: CT HEAD WITHOUT CONTRAST (STROKE PROTOCOL) CLINICAL INFORMATION: Stroke protocol. COMPARISON: Brain MRI, head CT and CTA head 11/06/2021 TECHNIQUE: Contiguous axial imaging was performed from the skull base to vertex without intravenous administration of contrast. This CT examination was performed using dose optimization techniques as appropriate, variously including the following: *Automated exposure control *Adjustment of mA and/or kV according to patient size (this includes techniques or standardized protocols for targeted exams where dose is matched to indication/reason for exam; i.e. extremities or head) *Use of iterative reconstruction technique DLP: 677 mGy-cm FINDINGS: There is no intracranial hemorrhage, hematoma, or extra-axial fluid collection. The ventricles are normal in size. There is no hydrocephalus, edema, or mass effect. The guillen-white matter differentiation appears symmetric. There is no acute infarct or mass lesion. An old left basal ganglia infarct is noted. The calvarium appears intact. There is no pneumocephalus or orbital emphysema. The visualized sinuses and middle ears and mastoid air cells show no significant mucosal thickening. There are no air-fluid levels. CT/CT head for stroke IMPRESSION: No acute intracranial pathology. This critical result was discussed with Dr. Wylie at 2:17 PM hours on 12/14/2021. It was ascertained that the content and urgency of the report was understood at the time of direct communication.
--- NOTE | ~2021-12-14 | CT_ITS ---
EXAMINATION: CTA NECK WITH CONTRAST (STROKE) CTA BRAIN WITH CONTRAST (STROKE) CLINICAL INFORMATION: Suspect acute stroke. Assess for major vessel occlusion. COMPARISON: CT scan of the head earlier 12/14/2021. CTA of the head and neck 11/06/2021. TECHNIQUE: CTA of the head and neck was performed in the axial plane from the mediastinum to the skull vertex using 70 mL Omnipaque 350 intravenous contrast. A delayed postcontrast axial CT scan of the head was obtained. Additional reformatted multiplanar images including maximum intensity projection MIP images are generated on the CT workstation. The degree of stenosis determined by criteria similar to NASCET. This CT examination was performed using dose optimization techniques as appropriate, variously including the following: *Automated exposure control *Adjustment of mA and/or kV according to patient size (this includes techniques or standardized protocols for targeted exams where dose is matched to indication/reason for exam; i.e. extremities or head) *Use of iterative reconstruction technique DLP: 1613 mGy-cm FINDINGS: CT Head: There is no evidence of acute intracranial hemorrhage or territorial infarction. No abnormal mass-effect or midline shift is seen. Marquez to white matter differentiation is well preserved. No extra-axial fluid collections are identified. There is no abnormal enhancement. There is commensurate prominence of the ventricles and sulci consistent with diffuse volume loss. There are scattered areas of low-attenuation in the periventricular and subcortical white matter, consistent with chronic microvascular ischemic changes. There are chronic lacunar infarcts in the left basal ganglia. There are no acute osseous findings. There is hyperostosis frontalis internal. The soft tissues are unremarkable. The mastoid air cells and paranasal sinuses are well-aerated. CTA Neck: There is a classic configuration of the arch of the aorta. There are atheromatous calcifications of the aortic arch and at the origins of the great vessels of the neck and right subclavian artery. There are atheromatous calcifications at the carotid bifurcations bilaterally without significant stenosis. The cervical internal carotid arteries are patent bilaterally. The origins of the vertebral arteries are well-demonstrated. There are mild atheromatous calcifications at the origin of the right vertebral artery. Both vertebral arteries are patent throughout their cervical course extending intradurally. They appear codominant. Nonvascular: There are atelectatic changes in the posterior lungs bilaterally. There are a few bullae in the right upper lobe. The thyroid gland appears normal. There is no cervical lymphadenopathy. There are moderate spondylitic and facet arthropathic changes. There is a levoscoliosis. There are no acute fractures or subluxations. CTA Head: There are mild atheromatous calcifications of the cavernous internal carotid arteries bilaterally without significant stenosis. There is approximately 50% narrowing of the proximal/mid M1 segment of the left middle cerebral artery, but there is good flow demonstrated distally and is good arborization of the middle cerebral arteries bilaterally. The anterior communicating and the anterior cerebral arteries are patent bilaterally. There are no focal stenoses, aneurysms or vascular malformations. In the posterior circulation, the left vertebral artery is slightly dominant. Both vertebral arteries have uniform caliber. The basilar artery appears normal. There is a origin of the left posterior cerebral artery. There is an area of moderate stenosis in the region of the proximal P2 segment of the right posterior cerebral artery. The venous sinuses opacify normally. CT/CT angio head neck stroke IMPRESSION: 1. There are no acute bleeds or territorial infarcts. No masses are demonstrated. There is no abnormal enhancement. 2. There are chronic microvascular ischemic changes and there is diffuse volume loss. 3. There are no flow-limiting stenoses in the upper thoracic and cervical circulation. There are mild atheromatous calcifications. 4. Intracranially there is approximately 50% narrowing of the proximal/mid M1 segment of the left middle cerebral artery. There is irregularity of the proximal P2 segment of the right posterior cerebral artery. There are no aneurysms or vascular malformations. This critical result was discussed with Carlos Wylie by telephone on 12/14/2021 at C3 15 p.m. and it was ascertained that the content and urgency of the report was understood at the time of direct communication.
--- NOTE | ~2021-12-14 | XR_ITS ---
EXAMINATION: XR CHEST CLINICAL INFORMATION: Chest pain COMPARISON: Prior chest x-ray 11/06/2021 TECHNIQUE: Frontal view of the chest was obtained. FINDINGS: Diminished lung volume, no radiographic evidence of acute infiltrates or failure. Costophrenic angles are sharp. Skeletal structures unremarkable. Mediastinum and ludmila are stable. XR/XR chest 1V IMPRESSION: No acute change. Diminished lung volume.
--- NOTE | 2021-12-14 13:59 | ECG_ITS ---
Test Reason : ?STROKE Blood Pressure : / mmHG Vent. Rate : 075 BPM Atrial Rate : 075 BPM P-R Int : 130 ms QRS Dur : 062 ms QT Int : 400 ms P-R-T Axes : 043 040 053 degrees QTc Int : 446 ms Normal sinus rhythm Normal ECG When compared with ECG of 06-NOV-2021 14:49, No significant change was found Referred By: Ricardo Wylie Electronically Signed By:RENATA ESTRADA
[2021-12-14 14:04] LABS: Glucose, Whole Blood 137 mg/dL (60-115)
[2021-12-14 14:04] LABS: Prothrombin Time Whole Bld POC 11.7 sec (11.1-13.5)
[2021-12-14 14:28] VITALS: BP 130/48; BP 150/90; PULSE 75; PULSE 80; RESP 16; TEMP 36.4; O2SAT 100; O2SAT 98; BMI 30.3
[2021-12-14 14:42] LABS: MANUAL DIFF FLAG NO
--- NOTE | 2021-12-14 14:43 | ED_ITS ---
HPI - Neuro Symptoms/Deficit General Chief Complaint: Stroke Stated Complaint: Stroke Time Seen by Provider: 12/14/21 13:53 Source: EMS Mode of arrival: EMS Limitations: altered mental status History of Present Illness HPI Narrative: THIS IS A 76 YEARS OLD THE FEMALE LONGTERM A RESIDENT OF OF A [facility], WITH HISTORY OF DEMENTIA, SCHIZOAFFECTIVE DISORDER, COPD, CVA WITH RIGHT-SIDED WEAKNESS, PRESENTED TO THE EMERGENCY DEPARTMENT FROM THE [facility] WITH ALTERED MENTAL STATUS. I SPOKE WITH THE NURSING FACILITY USUALLY SHE WALKS WITH A WALKER AND SHE IS ABLE TO SPEAK BUT THEY SENT HERE BECAUSE HE WAS ALTERED. TO BE NOTED THAT SHE WAS ALSO COVID POSITIVE OF 4 DAYS AGO AT THE NURSING FACILITY. THE PATIENT IS UNABLE TO GIVE ANY HISTORY SHE IS LETHARGIC EASILY AROUSABLE BUT SHE DOES NOT FOLLOW, THE Onset (ago): hour(s) (1) Timing confirmed by: other ([facility]) Location: other ([facility]) History of same: Yes Severity: severe Quality: weak Relieving factors: none Exacerbating factors: none Context: gradual onset Associated symptoms: denies other symptoms Related Data Home Medications Medication Instructions Recorded Confirmed acetaminophen 500 mg tablet 1,000 mg PO BID 11/06/21 12/14/21 clozapine 200 mg tablet 200 mg PO DAILY@1700 11/06/21 12/14/21 clozapine 25 mg tablet 25 mg PO DAILY@1700 11/06/21 12/14/21 clozapine 50 mg tablet 50 mg PO DAILY 11/06/21 12/14/21 ergocalciferol (vitamin D2) 1,250 1,250 mcg PO QMONTH 11/06/21 12/14/21 mcg (50,000 unit) capsule famotidine 20 mg tablet 20 mg PO DAILY 11/06/21 12/14/21 haloperidol 1 mg tablet 1 mg PO DAILY 11/06/21 12/14/21 metformin 1,000 mg tablet 1,000 mg PO BID 11/06/21 12/14/21 salmeterol 50 mcg/dose blister 1 inh INHALATION BID 11/06/21 12/14/21 powder for inhalation (Serevent Diskus) sennosides 8.6 mg tablet (senna) 17.2 mg PO BID 11/06/21 12/14/21 simvastatin 10 mg tablet 10 mg PO QPM 12/22/21 01/29/22 Previous Rx's Medication Instructions Recorded clopidogrel 75 mg tablet (Plavix) 75 mg PO DAILY #30 tab 11/08/21 Allergies Allergy/AdvReac Type Severity Reaction Status Date / Time MOSHE Inhibitors Allergy Unknown Unknown Verified 11/06/21 23:27 aspirin Allergy Unknown unknown Verified 11/06/21 23:26 erythromycin base Allergy Unknown unknown Verified 11/06/21 23:26 NSAIDS (Non-Steroidal Allergy Unknown Unknown Verified 11/06/21 23:27 Anti-Inflamma Penicillins Allergy Unknown unknown Verified 11/06/21 23:28 Review of Systems Verdana 4l Review of Systems: Verdana 4d COVID POSITIVE Verdana 4d Verdana 4d Yes all other systems are reviewed and are negative Verdana 4l Constitutional: Verdana 4d Constitutional: Verdana 4d Verdana 4d Denies fever(s) Verdana 4l Eyes: Verdana 4d Verdana 4d Eyes: Verdana 4d Reports no additional eye complaints Verdana 4l Cardiovascular: Verdana 4d Cardiovascular: Verdana 4d Verdana 4d Reports no additional cardiovascular complaints Verdana 4l Respiratory: Verdana 4d Verdana 4d Respiratory: Verdana 4d Reports no additional respiratory complaints PMFSH Past Medical History Medical History Anemia Chronic constipation Chronic hyponatremia COPD (chronic obstructive pulmonary disease) Dementia DM2 (diabetes mellitus, type 2) Dysphagia Edema GERD (gastroesophageal reflux disease) HLD (hyperlipidemia) Hyperkalemia Incontinence of urine in female OLVERA (nonalcoholic steatohepatitis) KEISHA (obstructive sleep apnea) Parkinsonian tremor Schizoaffective disorder Social History Social History Housing: Other Housing Other:: shelter. Do you presently have visiting nurse or other home services: No Alcohol intake: unknown Patient Tobacco Use Status: Tobacco use Unknown Advance Directives: No Advance Directives Information Provided: Yes service: No Current occupational status: unemployed and disabled Physical Exam Verdana 4l Vital Signs: Verdana 4d Verdana 4d Vital Signs: Verdana 4d Verdana 4Bd Last Vital Signs Verdana 4d Band Teacher New 4d Band Teacher New 4d Temp 97.5 F 12/14/21 14:28 Band Teacher New 4d Pulse 75 12/14/21 14:28 Band Teacher New 4d Resp 16 12/14/21 14:28 BP 130/48 L 12/14/21 14:28 Pulse Ox 98 12/14/21 14:28 BMI result Body Mass Index 30.3 Const: Other: PATIENT APPEAR LETHARGIC EASILY AROUSABLE General: no acute distress Nutritional Appearance: well nourished Limitations: altered mental status HENMT: Head: Yes normal to inspection Face and sinus: Yes other (A FACIAL DROOP (PATIENT HAD CVA IN OCTOBER)) Mouth: Normal oral and palatal mucosa present Neck: Neck: Yes normal visual inspection Chest: Chest palpation & inspection: normal inspection of the chest Resp: Effort & Inspection: normal respiratory effort Auscultation: clear to auscultation bilaterally Cardio: Jugular venous distension: no JVD Rate: regular rate Rhythm: regular rhythm GI: Inspection: Yes normal to inspection Palpation (GI): Soft to palpation, not firm, nontender and no guarding Skin: General skin exam: no rashes or lesions noted Neuro: Other: PATIENT IS ALTERED UNABLE TO FOLLOW COMMAND I AM UNABLE TO PERFORM A GOOD NEURO EXAM SECONDARY TO THAT Course Reevaluation(s) Reevaluation #1: ShE IA MORE AWAKE NOW SHE IS FOLLOWING COMMAND SHE MOVE WELL LEFT UPPER EXTREMITY AND LEFT LOWER EXTREMITY,SHE HAS RT HEMYPARESIS WICH IS OLD RESULT FROM THE LEFT HEMYSPHERIC CVA OF NOV 05,SHE IS TALKING NOW BECAUSE RAPID I MPROVEMENT OF HER MENTAL STATUS,HER COMORBIDITY INCLUDING DEMENTIA,PARKINSON DISEASE,,COVID POSITIVE WELL WILL HOLD OFF ON TROMBOLYTIC THERAPY .COVID INFECTION CAN HAVE NEUROLOGICAL EFFECT IN PT WELL SPOKE WITH DR Aponte HE AGREE WITH THE PLAN TO HOLD TPA Reevaluation #2: CTA ALSO DONE 50 % STENOSIS LEFT M1, I DID DISCUSSED THE CASE WELL WITH STROKE TEAM AT [facility] DR RIVERA, NO REVASCULARIZATION FOR 50% SHE DOES NOT NEED THROMBECTOMY, MEDICAL THERAPY ONLY.PER DR RIVERA COVID CAN CAUSE OFTEN ENCEPHALOPATHY AND WORSENING SYMPTOMS FROM PRIOR CVA. Reevaluation #3: SPOKE WITH HOSPITALIST HE DOES NOT WANT MRI WILL CANCEL MRI MDM - Neuro Symptoms/Deficit Lab Data Result diagrams: 12/14/21 14:39 12/14/21 14:39 Labs: Lab Results 12/14/21 12/14/21 12/14/21 Range/Units 13:58 13:59 14:39 WBC 8.6 (4.8-10.8) X10*3/uL RBC 4.00 L (4.20-5.50) X10*6/uL Hgb 10.6 L (12.0-16.0) g/dl Hct 34.7 L (37.0-47.0) % MCV 86.8 (80.0-98.0) fL MCH 26.5 L (27.0-33.0) pg MCHC 30.5 L (31.0-35.0) g/dl RDW 14.6 (11.0-16.0) % Plt Count 267 (160-400) X10*3/uL MPV 12.2 (9.4-12.3) fL Immature Gran % (Auto) 0.2 (0.0-0.4) % Neut % (Auto) 80.2 H (45-73) % Lymph % (Auto) 13.6 L (20-40) % Reeves % (Auto) 4.6 (2-11) % Eos % (Auto) 1.2 (0-4) % Baso % (Auto) 0.2 (0-2) % Lymph # (Auto) 1.2 (1.2-4.9) X10*3/uL Reeves # (Auto) 0.4 (0.1-1.2) X10*3/uL Eos # (Auto) 0.1 (0.0-0.4) X10*3/uL Baso # (Auto) 0.0 (0.0-0.2) X10*3/uL Abs Immat Gran (auto) 0.02 (0.00-0.03) X10*3/uL Absolute Neuts (auto) 6.9 (2.0-8.3) x10*3/uL Absolute Nucleated RBC 0.000 (0.0-0.012) X10*3/uL Nucleated RBC % (auto) 0.0 (0.0-0.2) /100WBC PT (9.9-13.0) SEC Whole Blood PT 11.7 (11.1-13.5) sec INR (0.9-1.1) Whole Blood INR 1.0 (0.9-1.1) APTT (24.1-38.0) SEC Sodium (135-145) mmol/L Potassium (3.3-5.1) mmol/L Chloride (96-108) mmol/L Carbon Dioxide (22-29) mmol/L Anion Gap (12-20) BUN (9-16) mg/dL Creatinine (0.5-1.4) mg/dL Estim Creat Clear Calc Estimated GFR POC Glucose 137 H (60-115) mg/dL Random Glucose (60-115) mg/dL Calcium (8.4-10.2) mg/dL Total Bilirubin (0.0-1.0) mg/dL AST (5-31) U/L ALT (0-31) U/L Alkaline Phosphatase (39-117) U/L Troponin I High Sens (<3.5-17.0) ng/L Total Protein (6.5-8.0) g/dL Albumin (3.5-5.0) g/dL COVID-19 (ANGELICA) (Negative) COVID-19 Clin Com 12/14/21 12/14/21 12/14/21 Range/Units 14:39 14:39 14:39 WBC (4.8-10.8) X10*3/uL RBC (4.20-5.50) X10*6/uL Hgb (12.0-16.0) g/dl Hct (37.0-47.0) % MCV (80.0-98.0) fL MCH (27.0-33.0) pg MCHC (31.0-35.0) g/dl RDW (11.0-16.0) % Plt Count (160-400) X10*3/uL MPV (9.4-12.3) fL Immature Gran % (Auto) (0.0-0.4) % Neut % (Auto) (45-73) % Lymph % (Auto) (20-40) % Reeves % (Auto) (2-11) % Eos % (Auto) (0-4) % Baso % (Auto) (0-2) % Lymph # (Auto) (1.2-4.9) X10*3/uL Reeves # (Auto) (0.1-1.2) X10*3/uL Eos # (Auto) (0.0-0.4) X10*3/uL Baso # (Auto) (0.0-0.2) X10*3/uL Abs Immat Gran (auto) (0.00-0.03) X10*3/uL Absolute Neuts (auto) (2.0-8.3) x10*3/uL Absolute Nucleated RBC (0.0-0.012) X10*3/uL Nucleated RBC % (auto) (0.0-0.2) /100WBC PT 11.7 (9.9-13.0) SEC Whole Blood PT (11.1-13.5) sec INR 1.0 (0.9-1.1) Whole Blood INR (0.9-1.1) APTT 29.8 (24.1-38.0) SEC Sodium 139 (135-145) mmol/L Potassium 5.6 H (3.3-5.1) mmol/L Chloride 105 (96-108) mmol/L Carbon Dioxide 21 L (22-29) mmol/L Anion Gap 19 (12-20) BUN 17 H (9-16) mg/dL Creatinine 0.88 (0.5-1.4) mg/dL Estim Creat Clear Calc 48.4 Estimated GFR > 60 POC Glucose (60-115) mg/dL Random Glucose 131 H (60-115) mg/dL Calcium 9.2 (8.4-10.2) mg/dL Total Bilirubin 0.2 (0.0-1.0) mg/dL AST 11 (5-31) U/L ALT 12 (0-31) U/L Alkaline Phosphatase 51 (39-117) U/L Troponin I High Sens < 3.5 (<3.5-17.0) ng/L Total Protein 6.5 (6.5-8.0) g/dL Albumin 3.5 (3.5-5.0) g/dL COVID-19 (ANGELICA) (Negative) COVID-19 Clin Com 12/14/21 Range/Units 14:45 WBC (4.8-10.8) X10*3/uL RBC (4.20-5.50) X10*6/uL Hgb (12.0-16.0) g/dl Hct (37.0-47.0) % MCV (80.0-98.0) fL MCH (27.0-33.0) pg MCHC (31.0-35.0) g/dl RDW (11.0-16.0) % Plt Count (160-400) X10*3/uL MPV (9.4-12.3) fL Immature Gran % (Auto) (0.0-0.4) % Neut % (Auto) (45-73) % Lymph % (Auto) (20-40) % Reeves % (Auto) (2-11) % Eos % (Auto) (0-4) % Baso % (Auto) (0-2) % Lymph # (Auto) (1.2-4.9) X10*3/uL Reeves # (Auto) (0.1-1.2) X10*3/uL Eos # (Auto) (0.0-0.4) X10*3/uL Baso # (Auto) (0.0-0.2) X10*3/uL Abs Immat Gran (auto) (0.00-0.03) X10*3/uL Absolute Neuts (auto) (2.0-8.3) x10*3/uL Absolute Nucleated RBC (0.0-0.012) X10*3/uL Nucleated RBC % (auto) (0.0-0.2) /100WBC PT (9.9-13.0) SEC Whole Blood PT (11.1-13.5) sec INR (0.9-1.1) Whole Blood INR (0.9-1.1) APTT (24.1-38.0) SEC Sodium (135-145) mmol/L Potassium (3.3-5.1) mmol/L Chloride (96-108) mmol/L Carbon Dioxide (22-29) mmol/L Anion Gap (12-20) BUN (9-16) mg/dL Creatinine (0.5-1.4) mg/dL Estim Creat Clear Calc Estimated GFR POC Glucose (60-115) mg/dL Random Glucose (60-115) mg/dL Calcium (8.4-10.2) mg/dL Total Bilirubin (0.0-1.0) mg/dL AST (5-31) U/L ALT (0-31) U/L Alkaline Phosphatase (39-117) U/L Troponin I High Sens (<3.5-17.0) ng/L Total Protein (6.5-8.0) g/dL Albumin (3.5-5.0) g/dL COVID-19 (ANGELICA) Positive A (Negative) COVID-19 Clin Com See Note Imaging Data CT HEAD: Radiologist's impression: FINDINGS: There is no intracranial hemorrhage, hematoma, or extra-axial fluid collection.? The ventricles are normal in size. There is no hydrocephalus, edema, or mass effect.? The guillen-white matter differentiation appears symmetric. There is no acute infarct or mass lesion. An old left basal ganglia infarct is noted. The calvarium appears intact. There is no pneumocephalus or orbital emphysema.? The visualized sinuses and middle ears and mastoid air cells show no significant mucosal thickening. There are no air-fluid levels. CT/CT head for stroke IMPRESSION: No acute intracranial pathology. ? This critical result was discussed with Dr. Wylie at 2:17 PM hours on 12/14/2021. It was ascertained that the content and urgency of the report was understood at the time of direct communication. Dictated By: CHANEL APARICIO MD Signed By: <Electronically signed by CHANEL APARICIO MD in OV> 12/14/21 1422 DD/ 1358 ECG Data Attestation: I personally reviewed and interpreted this ECG as follows: ECG interpretation date: 12/14/21 Pacemaker model: nsr 75 NO ISCHEMIC CHANGES Discharge Plan Discharge Clinical Impression: COVID-19, Altered mental state Patient Disposition: Admitted As Inpatient
[2021-12-14 14:44] LABS: Basophils Percent Auto 0.2 % (0-2); Eosinophils Absolute Auto 0.1 X10*3/uL (0.0-0.4); Eosinophils Percent Auto 1.2 % (0-4); Hematocrit 34.7 % (37.0-47.0); Hemoglobin 10.6 g/dl (12.0-16.0); Imm Gran Abs Auto 0.02 X10*3/uL (0.00-0.03); Imm Gran Pct Auto 0.2 % (0.0-0.4); Lymphocytes Absolute Auto 1.2 X10*3/uL (1.2-4.9); Lymphocytes Percent Auto 13.6 % (20-40); Mean Corpuscular HGB Conc 30.5 g/dl (31.0-35.0); Mean Corpuscular Hemoglobin 26.5 pg (27.0-33.0); Mean Corpuscular Volume 86.8 fL (80.0-98.0); Mean Platelet Volume 12.2 fL (9.4-12.3); Monocytes Absolute Auto 0.4 X10*3/uL (0.1-1.2); Monocytes Percent Auto 4.6 % (2-11); Neutrophils Absolute Auto 6.9 x10*3/uL (2.0-8.3); Neutrophils Percent Auto 80.2 % (45-73); Platelet Count 267 X10*3/uL (160-400); Red Cell Distribution Width 14.6 % (11.0-16.0); White Blood Count 8.6 X10*3/uL (4.8-10.8)
[2021-12-14 14:50] LABS: Prothrombin Time 11.7 SEC (9.9-13.0)
[2021-12-14 14:52] LABS: Partial Thromboplastin Time 29.8 SEC (24.1-38.0)
[2021-12-14 15:05] LABS: Alanine Aminotransferase 12 U/L (0-31); Albumin Level 3.5 g/dL (3.5-5.0); Alkaline Phosphatase 51 U/L (39-117); Anion Gap 19 (12-20); Aspartate Amino Transferase 11 U/L (5-31); Bilirubin Total 0.2 mg/dL (0.0-1.0); Blood Urea Nitrogen 17 mg/dL (9-16); Calcium 9.2 mg/dL (8.4-10.2); Carbon Dioxide 21 mmol/L (22-29); Chloride 105 mmol/L (96-108); Creatinine Clr Calc Pharmacy 48.4; Estimated Glomerular Filt Rate > 60; Glucose Random 131 mg/dL (60-115); Potassium 5.6 mmol/L (3.3-5.1); Sodium 139 mmol/L (135-145); Total Protein 6.5 g/dL (6.5-8.0); Troponin-I High Sensitivity < 3.5 ng/L (<3.5-17.0)
[2021-12-14] MEDS: 0.9 % Sodium Chloride 1,000 ML 100 ML IVCONT (15:25)
[2021-12-14 15:28] LABS: COVID-19 Test Positive (Negative)
[2021-12-14 16:25] LABS: Appearance Urine CLEAR; Color Urine YELLOW; Glucose Urine UA NEG (NEG); Leukocyte Esterase Urine NEG (NEG); Nitrite Urine NEG (NEG); PH 5.5 (5.0-8.0); Urine Blood NEG (NEG); Urine Ketones NEG (NEG); Urine Protein NEG (NEG-TRACE)
[2021-12-14 16:30] LABS: RBC Urine 0 /HPF (0); WBC Urine 0 /HPF (0-4)
--- NOTE | 2021-12-14 17:17 | P.HPHOSP_ITS ---
History of Present Illness Date of Service: 12/14/21 Chief Complaint: Altered mentation, increased weakness A 76 years old lady with PMH of diabetes, HLD, CVA with right hemiparesis, dementia among others who presented from senior living with altered mentation. The patient was diagnosed with COVID almost 4 days ago and since then the a noticed a deterioration in the patient oral intake, mentation S she became more confused. In the emergency she is easily arousable and able to talk to. She knows she is in the hospital and with the year but she is not sure why she ended up here. Confirm that she has been sick for the last few days. Tested positive for COVID-19 infection with evidence of mild hyperkalemia of 5.6 Admitted for further evaluation and treatment. Review of Systems Verdana 4l Review of Systems: Verdana 4d No fever, chills but Verdana 4d reports generalized weakness and decreased oral intake No chest pain, palpitation No shortness of breath or coughing No abdominal pain, nausea or vomiting No urinary symptoms No any rash or wounds Verdana 4d [facility] Medical History (Updated 12/14/21 @ 17:26 by Jessica Srinivasan MD) Anemia Chronic constipation Chronic hyponatremia COPD (chronic obstructive pulmonary disease) Dementia DM2 (diabetes mellitus, type 2) Dysphagia Edema GERD (gastroesophageal reflux disease) HLD (hyperlipidemia) Hyperkalemia Incontinence of urine in female OLVERA (nonalcoholic steatohepatitis) KEISHA (obstructive sleep apnea) Parkinsonian tremor Schizoaffective disorder Social History Housing: Other Housing Other:: alf. Do you presently have visiting nurse or other home services: No Alcohol intake: unknown Patient Tobacco Use Status: Tobacco use Unknown Advance Directives: No Advance Directives Information Provided: Yes service: No Current occupational status: unemployed and disabled Meds Allergies Allergy/AdvReac Type Severity Reaction Status Date / Time MOSHE Inhibitors Allergy Unknown Unknown Verified 11/06/21 23:27 aspirin Allergy Unknown unknown Verified 11/06/21 23:26 erythromycin base Allergy Unknown unknown Verified 11/06/21 23:26 NSAIDS (Non-Steroidal Allergy Unknown Unknown Verified 11/06/21 23:27 Anti-Inflamma Penicillins Allergy Unknown unknown Verified 11/06/21 23:28 Active Medications: Current Medications Acetaminophen (Acetaminophen 325 Mg Tablet) 650 mg PO Q6H PRN PRN Reason: Pain, Mild (Pain Scale 1-3) Clopidogrel Bisulfate (Clopidogrel Bisulfate 75 Mg Tablet) 75 mg PO DAILY [facility] Clozapine (Clozapine 25 Mg Tablet) 25 mg PO DAILY@1700 [facility] Clozapine (Clozapine 25 Mg Tablet) 50 mg PO DAILY [facility] Clozapine (Clozapine 100 Mg Tablet) 200 mg PO DAILY@1700 [facility] Enoxaparin Sodium (Enoxaparin Sodium 40 Mg/0.4 Ml Syringe) 40 mg SUBCUT Q24H [facility] Ergocalciferol (Ergocalciferol (Vitamin D2) 1,250 Mcg Capsule) 1,250 mcg PO Q30D [facility] Famotidine (Famotidine 20 Mg Tablet) 20 mg PO DAILY [facility] Haloperidol (Haloperidol 1 Mg Tablet) 1 mg PO DAILY [facility] Sodium Chloride (Ns) 1,000 mls @ 100 mls/hr IVCONT .Q10H [facility] Last Admin: 12/14/21 15:25 Dose: 100 mls/hr Documented by: Ondansetron HCl (Ondansetron Hcl 4 Mg/2 Ml Vial) 4 mg IVPUSH Q8H PRN PRN Reason: Nausea and Vomiting Pharmacy Consult (Consult Rx Perform Med Rec) 1 each MISCELLANE ONCE PRN PRN Reason: Consult order Salmeterol Xinafoate (Salmeterol Xinafoate 50 Mcg Blst.W.Dev) 1 puff INHALE RBID [facility] Senna (Sennosides 8.6 Mg Tablet) 17.2 mg PO BID [facility] Home Medications Medication Instructions Recorded Confirmed Last Taken Type acetaminophen 500 1,000 mg PO BID 11/06/21 12/14/21 12/14/21 History mg tablet clozapine 200 mg 200 mg PO 11/06/21 12/14/21 12/13/21 History tablet DAILY@1700 clozapine 25 mg 25 mg PO 11/06/21 12/14/21 12/13/21 History tablet DAILY@1700 clozapine 50 mg 50 mg PO DAILY 11/06/21 12/14/21 12/14/21 History tablet ergocalciferol 1,250 mcg PO 11/06/21 12/14/21 12/13/21 History (vitamin D2) QMONTH 1,250 mcg (50,000 unit) capsule famotidine 20 mg 20 mg PO DAILY 11/06/21 12/14/21 12/14/21 History tablet haloperidol 1 mg 1 mg PO DAILY 11/06/21 12/14/21 12/14/21 History tablet metformin 1,000 1,000 mg PO BID 11/06/21 12/14/21 12/14/21 History mg tablet salmeterol 50 1 inh INHALATION 11/06/21 12/14/21 12/14/21 History mcg/dose blister BID powder for inhalation (Serevent Diskus) sennosides 8.6 mg 17.2 mg PO BID 11/06/21 12/14/21 12/14/21 History tablet (senna) simvastatin 10 mg 10 mg PO QPM 11/06/21 12/14/21 12/14/21 History tablet Physical Exam Verdana 4l Vital Signs and Narrative: Verdana 4d Verdana 4d Vital Signs: Verdana 4d Verdana 4Bd Last Vital Signs Verdana 4d Hospice Chaplain New 4d Hospice Chaplain New 4d Temp 97.5 F 12/14/21 14:28 Hospice Chaplain New 4d Pulse 75 12/14/21 14:28 Hospice Chaplain New 4d Resp 16 12/14/21 14:28 BP 130/48 L 12/14/21 14:28 Pulse Ox 98 12/14/21 14:28 BMI result Body Mass Index 30.3 Const: Other: Constitutional : Interactive with stimulation, not in distress, looks weak and exhausted Neck : Normal inspection, Supple Cardiovascular : No JVP, no lower extremity edema Respiratory : Chest wall moving bilaterally, not in respiratory distress Gastrointestinal: soft, lax, Normal bowel sounds, Non tender Skin : Warm, Dry Neurological : Alert with stimulation, oriented to self and place, right upper and lower lower extremity weakness Results Labs CBC and Chem 7: 12/14/21 14:39 12/14/21 14:39 Labs: Laboratory Results - last 24 hr 12/14/21 12/14/21 12/14/21 13:58 13:59 14:39 MCV 86.8 MCH 26.5 L MCHC 30.5 L RDW 14.6 Plt Count 267 MPV 12.2 Immature Gran % (Auto) 0.2 Neut % (Auto) 80.2 H Lymph % (Auto) 13.6 L [place] % (Auto) 4.6 Eos % (Auto) 1.2 Baso % (Auto) 0.2 Lymph # (Auto) 1.2 [place] # (Auto) 0.4 Eos # (Auto) 0.1 Baso # (Auto) 0.0 Abs Immat Gran (auto) 0.02 Absolute Neuts (auto) 6.9 Absolute Nucleated RBC 0.000 Nucleated RBC % (auto) 0.0 PT Whole Blood PT 11.7 INR Whole Blood INR 1.0 APTT Anion Gap Estim Creat Clear Calc Estimated GFR POC Glucose 137 H Random Glucose Calcium Total Bilirubin AST ALT Alkaline Phosphatase Troponin I High Sens Total Protein Albumin Urine Color Urine Appearance Urine pH Ur Specific [place] Urine Protein Urine Glucose (UA) Urine Ketones Urine Blood Urine Nitrite Ur Leukocyte Esterase Urine RBC Urine WBC Ur Squamous Epith Cells Urine Bacteria COVID-19 (ANGELICA) COVID-19 Personal Style Finder 12/14/21 12/14/21 12/14/21 14:39 14:39 14:39 MCV MCH MCHC RDW Plt Count MPV Immature Gran % (Auto) Neut % (Auto) Lymph % (Auto) [place] % (Auto) Eos % (Auto) Baso % (Auto) Lymph # (Auto) [place] # (Auto) Eos # (Auto) Baso # (Auto) Abs Immat Gran (auto) Absolute Neuts (auto) Absolute Nucleated RBC Nucleated RBC % (auto) PT 11.7 Whole Blood PT INR 1.0 Whole Blood INR APTT 29.8 Anion Gap 19 Estim Creat Clear Calc 48.4 Estimated GFR > 60 POC Glucose Random Glucose 131 H Calcium 9.2 Total Bilirubin 0.2 AST 11 ALT 12 Alkaline Phosphatase 51 Troponin I High Sens < 3.5 Total Protein 6.5 Albumin 3.5 Urine Color Urine Appearance Urine pH Ur Specific [place] Urine Protein Urine Glucose (UA) Urine Ketones Urine Blood Urine Nitrite Ur Leukocyte Esterase Urine RBC Urine WBC Ur Squamous Epith Cells Urine Bacteria COVID-19 (ANGELICA) COVID-19 Personal Style Finder 12/14/21 12/14/21 14:45 16:19 MCV MCH MCHC RDW Plt Count MPV Immature Gran % (Auto) Neut % (Auto) Lymph % (Auto) [place] % (Auto) Eos % (Auto) Baso % (Auto) Lymph # (Auto) [place] # (Auto) Eos # (Auto) Baso # (Auto) Abs Immat Gran (auto) Absolute Neuts (auto) Absolute Nucleated RBC Nucleated RBC % (auto) PT Whole Blood PT INR Whole Blood INR APTT Anion Gap Estim Creat Clear Calc Estimated GFR POC Glucose Random Glucose Calcium Total Bilirubin AST ALT Alkaline Phosphatase Troponin I High Sens Total Protein Albumin Urine Color YELLOW Urine Appearance CLEAR Urine pH 5.5 Ur Specific [place] 1.010 Urine Protein NEG Urine Glucose (UA) NEG Urine Ketones NEG Urine Blood NEG Urine Nitrite NEG Ur Leukocyte Esterase NEG Urine RBC 0 Urine WBC 0 Ur Squamous Epith Cells NONE Urine Bacteria NONE COVID-19 (ANGELICA) Positive A COVID-19 Clin Com See Note Imaging Radiologist's Impressions: Impressions Head CT 12/14/21 13:58 IMPRESSION: No acute intracranial pathology. This critical result was discussed with Dr. Wylie at 2:17 PM hours on 12/14/2021. It was ascertained that the content and urgency of the report was understood at the time of direct communication. Head/Neck CTA 12/14/21 14:26 IMPRESSION: 1. There are no acute bleeds or territorial infarcts. No masses are demonstrated. There is no abnormal enhancement. 2. There are chronic microvascular ischemic changes and there is diffuse volume loss. 3. There are no flow-limiting stenoses in the upper thoracic and cervical circulation. There are mild atheromatous calcifications. 4. Intracranially there is approximately 50% narrowing of the proximal/mid M1 segment of the left middle cerebral artery. There is irregularity of the proximal P2 segment of the right posterior cerebral artery. There are no aneurysms or vascular malformations. This critical result was discussed with Carlos Wylie by telephone on 12/14/2021 at C3 15 p.m. and it was ascertained that the content and urgency of the report was understood at the time of direct communication. Chest X-Ray 12/14/21 14:55 IMPRESSION: No acute change. Diminished lung volume. Assessment and Plan (1) COVID-19: Status: Acute (2) Adult failure to thrive: Status: Acute (3) Hyperkalemia: Status: Acute (4) Acute metabolic encephalopathy: Status: Acute Plan A 76 years old lady with PMH of diabetes, HLD, CVA with right hemiparesis, dementia among others who presented from senior living with altered mentation. adult failure to thrive Secondary to COVID-19 infection Tested positive 5 days ago, vaccinated Patient will need supportive measures mainly as she is not hypoxic Gentle hydration for today Encourage oral intake To do physical therapy evaluation Metabolic encephalopathy CT, CTA were negative for any acute findings Multifactorial, likely result of COVID infection and polypharmacy Continue clozapine, cut down on haloperidol Recurrent reorientation Hyperkalemia Potassium of 5.6 To give Lokelma Follow BMP Diabetes type 2 Diabetic diet, SSI DVT PPX Lovenox Quality Stroke Does the patient have a stroke diagnosis?: No VTE Prior VTE?: No VTE Risk Level:: Medical - moderate - high VTE Device Contraindication: Treatment Not Indicated VTE Drug Contraindication: N/A - Med Ordered
[2021-12-14] MEDS: cloZAPine 25 MG TABLET PO (18:04)
[2021-12-14] MEDS: cloZAPine 100 MG TABLET 200 MG PO (18:05)
[2021-12-14] MEDS: Enoxaparin Sodium 40 MG/0.4 ML SYRINGE SUBCUT (18:30)
[2021-12-14] MEDS: Sodium Zirconium Cyclosilicate 5 GM POWD.PACK PO (18:30)
[2021-12-14 20:40] VITALS: BP 170/71; PULSE 76; RESP 16; TEMP 36.4; O2SAT 95
[2021-12-14 20:58] VITALS: BP 160/73; PULSE 77; RESP 17; O2SAT 98
--- NOTE | 2021-12-14 21:07 | PC.NURSE ---
Pt asleep on stretcher in NAD, breathing with ease on RA, VSS. Pt arousable to light touch, opens her eyes, moans/groans, but does not respond with verbal coherent statements/thoughts. This RN held PO deandre as pt is not safe to swallow at this time. Dr Fong is aware. Pt stretcher in low locked position, rails raised, call zaidi within reach. Pt remains connected to bedside patient monitor.
--- NOTE | 2021-12-14 21:15 | PHA.MEDREC ---
Pharmacy Consult ? Medication Reconciliation Pharmacy has completed the medication reconciliation. [facility] MAR
[2021-12-14 22:00] VITALS: BP 172/75; PULSE 80; RESP 16; O2SAT 97
[2021-12-14 22:05] LABS: Glucose, Whole Blood 83 mg/dL (60-115)
--- NOTE | 2021-12-14 22:13 | PC.NURSE ---
Pt found to be incontinent of urine. Inc care provided, linens changed, pt repositioned in bed. Purewick in place. Stretcher low locked, rails raised, call zaidi within reach, fall prevention socks on.
[2021-12-15] VITALS (10 sets, daily range): BP systolic 149–190; BP diastolic 51–91; PULSE 69–78; RESP 14–18; TEMP 36.1–37; O2SAT 95–99
--- NOTE | 2021-12-15 01:12 | PC.NURSE ---
Dr Fong TT regarding pt's VS. Awaiting reply
[2021-12-15] MEDS: 0.9 % Sodium Chloride 1,000 ML 100 ML IVCONT ×2 (01:13→10:38)
--- NOTE | 2021-12-15 01:13 | PC.NURSE ---
Per BLAKE Fong for BP at this time
[2021-12-15 06:29] LABS: Hematocrit 33.8 % (37.0-47.0); Hemoglobin 10.2 g/dl (12.0-16.0); Mean Corpuscular HGB Conc 30.2 g/dl (31.0-35.0); Mean Corpuscular Hemoglobin 25.8 pg (27.0-33.0); Mean Corpuscular Volume 85.6 fL (80.0-98.0); Mean Platelet Volume 11.7 fL (9.4-12.3); Platelet Count 263 X10*3/uL (160-400); Red Blood Count 3.95 X10*6/uL (4.20-5.50); Red Cell Distribution Width 14.4 % (11.0-16.0)
[2021-12-15 07:12] LABS: Anion Gap 13 (12-20); Blood Urea Nitrogen 13 mg/dL (9-16); Calcium 8.8 mg/dL (8.4-10.2); Carbon Dioxide 24 mmol/L (22-29); Chloride 109 mmol/L (96-108); Creatinine Clr Calc Pharmacy 57.5; Estimated Glomerular Filt Rate > 60; Glucose Random 96 mg/dL (60-115); Potassium 4.4 mmol/L (3.3-5.1); Sodium 142 mmol/L (135-145)
[2021-12-15 07:27] LABS: Glucose, Whole Blood 87 mg/dL (60-115)
--- NOTE | 2021-12-15 09:16 | PC.NURSE ---
Patient not alert enough to take morning meds. BP has also been elevated 180s-190s systolically during the morning. Hospitalist made aware of both. Patient to be NPO and will be seen by Dr for more evaluation. No further orders for BP at this time.
--- NOTE | 2021-12-15 10:24 | MHC.CM.PN ---
PT IS A LTC RESIDENT OF [facility] IN [facility] LEFT A VM FOR PTS LEGAL GUARDIAN, ABBIE ACUÑA ([phone]) MEDICARE RIGHTS WERE REVIEWED AND WILL BE EMAILED TO HER AT [email or web address] PT WILL REQUIRE BLS TRANSPORT BACK TO [facility] AT [place]
--- NOTE | 2021-12-15 10:42 | MHC.STROKE ---
12/14/21 1350 ARRIVED VIA EMS FROM SNF, STROKE ALERT , STROKE PROTOCOL ACTIVATED, EXAMINED BY MD AND DIRECT TO CT AND CTA H/N. PATIENT IS KNOWN TO STROKE SERVICE FROM PRIOR [facility] WITH TPA GIVEN ON 11/05/21. EXCLUDED FROM TPA (ALTEPLASE) BASED ON RECENT STROKE WITH TPA WITHIN 3 MONTHS.
--- NOTE | 2021-12-15 11:22 | P.PNIM_ITS ---
Subjective Subjective Date of Service: 12/15/21 Interval History: Seen and evaluated this morning Laying in the bed, lethargic and sleepy but open are eyes if you call her name Able to move all extremities with command but goes back to sleep No reported overnight events Review of Systems No fever, chills but reports generalized weakness and decreased oral intake No chest pain, palpitation No shortness of breath or coughing No abdominal pain, nausea or vomiting No urinary symptoms No any rash or wounds Physical Exam Verdana 4l Vital Signs: Verdana 4d Verdana 4d Vital Signs: Verdana 4d Verdana 4Bd Last Vital Signs Verdana 4d Supervisor Force Adjustment New 4d Supervisor Force Adjustment New 4d Temp 98.3 F 12/15/21 10:39 Supervisor Force Adjustment New 4d Pulse 69 12/15/21 10:39 Supervisor Force Adjustment New 4d Resp 16 12/15/21 10:39 BP 176/76 H 12/15/21 10:39 Pulse Ox 97 12/15/21 10:39 BMI result Body Mass Index 30.3 Const: Other: Constitutional : Interactive with stimulation, not in distress, looks weak and exhausted Neck : Normal inspection, Supple Cardiovascular : No JVP, no lower extremity edema Respiratory : Chest wall moving bilaterally, not in respiratory distress Gastrointestinal: soft, lax, Normal bowel sounds, Non tender Skin : Warm, Dry Neurological : Alert with stimulation, oriented to self and place, right upper and lower lower extremity weakness Objective Data Active Medications Acetaminophen (Acetaminophen 325 Mg Tablet) 650 mg PO Q6H PRN PRN Reason: Pain, Mild (Pain Scale 1-3) Clopidogrel Bisulfate (Clopidogrel Bisulfate 75 Mg Tablet) 75 mg PO DAILY [facility] Last Admin: 12/15/21 09:15 Dose: Not Given Documented by: BRENNAN Non-Admin Reason: See Note Clozapine (Clozapine 25 Mg Tablet) 25 mg PO DAILY@1700 [facility] Last Admin: 12/14/21 18:04 Dose: 25 mg Documented by: CATY Clozapine (Clozapine 25 Mg Tablet) 50 mg PO DAILY [facility] Last Admin: 12/15/21 09:16 Dose: Not Given Documented by: BRENNAN Non-Admin Reason: See Note Clozapine (Clozapine 100 Mg Tablet) 200 mg PO DAILY@1700 [facility] Last Admin: 12/14/21 18:05 Dose: 200 mg Documented by: CATY Enoxaparin Sodium (Enoxaparin Sodium 40 Mg/0.4 Ml Syringe) 40 mg SUBCUT Q24H [facility] Last Admin: 12/14/21 18:30 Dose: 40 mg Documented by: CATY Ergocalciferol (Ergocalciferol (Vitamin D2) 1,250 Mcg Capsule) 1,250 mcg PO Q30D [facility] Famotidine (Famotidine 20 Mg Tablet) 20 mg PO DAILY [facility] Last Admin: 12/15/21 09:16 Dose: Not Given Documented by: BRENNAN Non-Admin Reason: See Note Haloperidol (Haloperidol 1 Mg Tablet) 1 mg PO DAILY [facility] Last Admin: 12/15/21 09:16 Dose: Not Given Documented by: BRENNAN Non-Admin Reason: See Note Sodium Chloride (Ns) 1,000 mls @ 100 mls/hr IVCONT .Q10H [facility] Last Admin: 12/15/21 10:38 Dose: 100 mls/hr Documented by: BRENNAN Ondansetron HCl (Ondansetron Hcl 4 Mg/2 Ml Vial) 4 mg IVPUSH Q8H PRN PRN Reason: Nausea and Vomiting Pharmacy Consult (Consult Rx Perform Med Rec) 1 each MISCELLANE ONCE PRN PRN Reason: Consult order Salmeterol Xinafoate (Salmeterol Xinafoate 50 Mcg Blst.W.Dev) 1 puff INHALE RBID [facility] Last Admin: 12/15/21 07:21 Dose: Not Given Documented by: JOSE A Non-Admin Reason: Med Not Available Senna (Sennosides 8.6 Mg Tablet) 17.2 mg PO BID [facility] Last Admin: 12/15/21 09:15 Dose: Not Given Documented by: BRENNAN Non-Admin Reason: See Note Labs CBC & Chem 7: 12/15/21 05:57 12/15/21 05:57 Labs: Laboratory Results - last 24 hr 12/14/21 12/14/21 12/14/21 13:58 13:59 14:39 MCV 86.8 MCH 26.5 L MCHC 30.5 L RDW 14.6 Plt Count 267 MPV 12.2 Immature Gran % (Auto) 0.2 Neut % (Auto) 80.2 H Lymph % (Auto) 13.6 L [place] % (Auto) 4.6 Eos % (Auto) 1.2 Baso % (Auto) 0.2 Lymph # (Auto) 1.2 [place] # (Auto) 0.4 Eos # (Auto) 0.1 Baso # (Auto) 0.0 Abs Immat Gran (auto) 0.02 Absolute Neuts (auto) 6.9 Absolute Nucleated RBC 0.000 Nucleated RBC % (auto) 0.0 PT Whole Blood PT 11.7 INR Whole Blood INR 1.0 APTT Anion Gap Estim Creat Clear Calc Estimated GFR POC Glucose 137 H Random Glucose Calcium Total Bilirubin AST ALT Alkaline Phosphatase Troponin I High Sens Total Protein Albumin Urine Color Urine Appearance Urine pH Ur Specific [place] Urine Protein Urine Glucose (UA) Urine Ketones Urine Blood Urine Nitrite Ur Leukocyte Esterase Urine RBC Urine WBC Ur Squamous Epith Cells Urine Bacteria COVID-19 (ANGELICA) COVID-19 [email or web address] 12/14/21 12/14/21 12/14/21 14:39 14:39 14:39 MCV MCH MCHC RDW Plt Count MPV Immature Gran % (Auto) Neut % (Auto) Lymph % (Auto) [place] % (Auto) Eos % (Auto) Baso % (Auto) Lymph # (Auto) [place] # (Auto) Eos # (Auto) Baso # (Auto) Abs Immat Gran (auto) Absolute Neuts (auto) Absolute Nucleated RBC Nucleated RBC % (auto) PT 11.7 Whole Blood PT INR 1.0 Whole Blood INR APTT 29.8 Anion Gap 19 Estim Creat Clear Calc 48.4 Estimated GFR > 60 POC Glucose Random Glucose 131 H Calcium 9.2 Total Bilirubin 0.2 AST 11 ALT 12 Alkaline Phosphatase 51 Troponin I High Sens < 3.5 Total Protein 6.5 Albumin 3.5 Urine Color Urine Appearance Urine pH Ur Specific [place] Urine Protein Urine Glucose (UA) Urine Ketones Urine Blood Urine Nitrite Ur Leukocyte Esterase Urine RBC Urine WBC Ur Squamous Epith Cells Urine Bacteria COVID-19 (ANGELICA) COVID-19 [email or web address] 12/14/21 12/14/21 12/14/21 14:45 16:19 22:00 MCV MCH MCHC RDW Plt Count MPV Immature Gran % (Auto) Neut % (Auto) Lymph % (Auto) [place] % (Auto) Eos % (Auto) Baso % (Auto) Lymph # (Auto) [place] # (Auto) Eos # (Auto) Baso # (Auto) Abs Immat Gran (auto) Absolute Neuts (auto) Absolute Nucleated RBC Nucleated RBC % (auto) PT Whole Blood PT INR Whole Blood INR APTT Anion Gap Estim Creat Clear Calc Estimated GFR POC Glucose 83 Random Glucose Calcium Total Bilirubin AST ALT Alkaline Phosphatase Troponin I High Sens Total Protein Albumin Urine Color YELLOW Urine Appearance CLEAR Urine pH 5.5 Ur Specific [place] 1.010 Urine Protein NEG Urine Glucose (UA) NEG Urine Ketones NEG Urine Blood NEG Urine Nitrite NEG Ur Leukocyte Esterase NEG Urine RBC 0 Urine WBC 0 Ur Squamous Epith Cells NONE Urine Bacteria NONE COVID-19 (ANGELICA) Positive A COVID-19 Clin Com See Note 12/15/21 12/15/21 12/15/21 05:57 05:57 07:20 MCV 85.6 MCH 25.8 L MCHC 30.2 L RDW 14.4 Plt Count 263 MPV 11.7 Immature Gran % (Auto) Neut % (Auto) Lymph % (Auto) [place] % (Auto) Eos % (Auto) Baso % (Auto) Lymph # (Auto) [place] # (Auto) Eos # (Auto) Baso # (Auto) Abs Immat Gran (auto) Absolute Neuts (auto) Absolute Nucleated RBC 0.000 Nucleated RBC % (auto) 0.0 PT Whole Blood PT INR Whole Blood INR APTT Anion Gap 13 Estim Creat Clear Calc 57.5 Estimated GFR > 60 POC Glucose 87 Random Glucose 96 Calcium 8.8 Total Bilirubin AST ALT Alkaline Phosphatase Troponin I High Sens Total Protein Albumin Urine Color Urine Appearance Urine pH Ur Specific [place] Urine Protein Urine Glucose (UA) Urine Ketones Urine Blood Urine Nitrite Ur Leukocyte Esterase Urine RBC Urine WBC Ur Squamous Epith Cells Urine Bacteria COVID-19 (ANGELICA) COVID-19 Clin Com Assessment and Plan (1) Acute metabolic encephalopathy: Status: Acute (2) Adult failure to thrive: Status: Acute (3) COVID-19: Status: Acute Plan A 76 years old lady with PMH of diabetes, HLD, CVA with right hemiparesis, dementia among others who presented from group home with altered mentation. adult failure to thrive Secondary to COVID-19 infection Tested positive 5 days ago, vaccinated Patient will need supportive measures mainly as she is not hypoxic Gentle hydration for today Encourage oral intake , NPO for now DIRECTOR INTERNAL AUDIT evaluation To do physical therapy evaluation Metabolic encephalopathy CT, CTA were negative for any acute findings Multifactorial, likely result of COVID infection and polypharmacy Continue clozapine, cut down on haloperidol Recurrent reorientation Hyperkalemia Improved to 4.4 Follow BMP Diabetes type 2 Diabetic diet, SSI DVT PPX Lovenox Quality Stroke Does the patient have a stroke diagnosis?: No VTE Prior VTE?: No VTE Risk Level:: Medical - moderate - high VTE Device Contraindication: Treatment Not Indicated VTE Drug Contraindication: N/A - Med Ordered
[2021-12-15] MEDS: Dextrose 5 % and Lactated Ring 1,000 ML 50 ML IVCONT (12:28)
[2021-12-15 13:43] LABS: Glucose, Whole Blood 99 mg/dL (60-115)
[2021-12-15 14:13] LABS: Glucose, Whole Blood 118 mg/dL (60-115)
[2021-12-15 17:10] LABS: Glucose, Whole Blood 127 mg/dL (60-115)
[2021-12-15] MEDS: cloZAPine 25 MG TABLET PO (17:17)
[2021-12-15] MEDS: Enoxaparin Sodium 40 MG/0.4 ML SYRINGE SUBCUT (17:17)
--- NOTE | 2021-12-15 17:28 | PC.NURSE ---
This nurse attempted to give pt's scheduled colazepine po ground by mouth with apple sauce that is on ground diet. This nurse asked pt. if she had swallowed pills and she responded with no. I brought cup for pt. to spit out medicine in which she did.
[2021-12-15] MEDS: cloZAPine 100 MG TABLET 200 MG PO (19:09)
[2021-12-15 20:48] LABS: Glucose, Whole Blood 109 mg/dL (60-115)
[2021-12-16] VITALS (9 sets, daily range): BP systolic 160–197; BP diastolic 65–92; PULSE 66–79; RESP 15–19; TEMP 36.2–37.1; O2SAT 94–100
[2021-12-16] MEDS: Dextrose 5 % and Lactated Ring 1,000 ML 50 ML IVCONT (05:22)
[2021-12-16 06:34] LABS: C Reactive Protein 0.82 mg/dL (< or = 0.50); Lactate Dehydrogenase 130 U/L (122-220)
[2021-12-16 06:37] LABS: Hematocrit 33.2 % (37.0-47.0); Hemoglobin 10.2 g/dl (12.0-16.0); Mean Corpuscular HGB Conc 30.7 g/dl (31.0-35.0); Mean Corpuscular Hemoglobin 25.8 pg (27.0-33.0); Mean Corpuscular Volume 84.1 fL (80.0-98.0); Mean Platelet Volume 12.1 fL (9.4-12.3); Platelet Count 292 X10*3/uL (160-400); Red Blood Count 3.95 X10*6/uL (4.20-5.50); Red Cell Distribution Width 14.4 % (11.0-16.0); White Blood Count 6.9 X10*3/uL (4.8-10.8)
[2021-12-16 06:38] LABS: Anion Gap 10 (12-20); Blood Urea Nitrogen 9 mg/dL (9-16); Calcium 9.2 mg/dL (8.4-10.2); Carbon Dioxide 28 mmol/L (22-29); Chloride 108 mmol/L (96-108); Creatinine Clr Calc Pharmacy 59.1; Estimated Glomerular Filt Rate > 60; Glucose Random 117 mg/dL (60-115); Potassium 4.3 mmol/L (3.3-5.1); Sodium 142 mmol/L (135-145)
[2021-12-16 07:29] LABS: Glucose, Whole Blood 118 mg/dL (60-115)
[2021-12-16] MEDS: Clopidogrel Bisulfate 75 MG TABLET PO (09:44)
[2021-12-16] MEDS: Famotidine 20 MG TABLET PO (09:44)
[2021-12-16] MEDS: Sennosides 8.6 MG TABLET 17.2 MG PO ×2 (09:44→21:11)
[2021-12-16] MEDS: amLODIPine Besylate 5 MG TABLET PO (09:44)
[2021-12-16 11:12] LABS: Glucose, Whole Blood 163 mg/dL (60-115)
--- NOTE | 2021-12-16 13:25 | P.PNIM_ITS ---
Subjective Subjective Date of Service: 12/16/21 Interval History: Seen and evaluated this morning Laying in the bed, sleepy but open are eyes if you call her name Improved in the afternoon as she is more awake and able to eat No reported overnight events Review of Systems No fever, chills but reports generalized weakness and decreased oral intake No chest pain, palpitation No shortness of breath or coughing No abdominal pain, nausea or vomiting No urinary symptoms No any rash or wounds Physical Exam Verdana 4l Vital Signs: Verdana 4d Verdana 4d Vital Signs: Verdana 4d Verdana 4Bd Last Vital Signs Verdana 4d Gold Assayer New 4d Gold Assayer New 4d Temp 97.6 F 12/16/21 11:42 Gold Assayer New 4d Pulse 72 12/16/21 11:42 Gold Assayer New 4d Resp 17 12/16/21 11:42 BP 162/65 H 12/16/21 11:42 Pulse Ox 95 12/16/21 11:42 BMI result Body Mass Index 30.3 Const: Other: Constitutional : Interactive with stimulation, not in distress, looks weak and exhausted Neck : Normal inspection, Supple Cardiovascular : No JVP, no lower extremity edema Respiratory : Chest wall moving bilaterally, not in respiratory distress Gastrointestinal: soft, lax, Normal bowel sounds, Non tender Skin : Warm, Dry Neurological : Alert with stimulation, oriented to self and place, right upper and lower lower extremity weakness Objective Data Active Medications Acetaminophen (Acetaminophen 325 Mg Tablet) 650 mg PO Q6H PRN PRN Reason: Pain, Mild (Pain Scale 1-3) Amlodipine Besylate (Amlodipine Besylate 5 Mg Tablet) 5 mg PO DAILY [facility]; Protocol Last Admin: 12/16/21 09:45 Dose: Not Given Documented by: ELIZABETH Non-Admin Reason: just given Clopidogrel Bisulfate (Clopidogrel Bisulfate 75 Mg Tablet) 75 mg PO DAILY [facility] Last Admin: 12/16/21 09:44 Dose: 75 mg Documented by: ELIZABETH Clozapine (Clozapine 25 Mg Tablet) 25 mg PO DAILY@1700 [facility] Last Admin: 12/15/21 17:17 Dose: 25 mg Documented by: JOSE MARIA Clozapine (Clozapine 25 Mg Tablet) 50 mg PO DAILY [facility] Last Admin: 12/15/21 09:16 Dose: Not Given Documented by: BRENNAN Non-Admin Reason: See Note Clozapine (Clozapine 100 Mg Tablet) 200 mg PO DAILY@1700 [facility] Last Admin: 12/15/21 19:09 Dose: 200 mg Documented by: JOSE MARIA Enoxaparin Sodium (Enoxaparin Sodium 40 Mg/0.4 Ml Syringe) 40 mg SUBCUT Q24H [facility] Last Admin: 12/15/21 17:17 Dose: 40 mg Documented by: JOSE MARIA Ergocalciferol (Ergocalciferol (Vitamin D2) 1,250 Mcg Capsule) 1,250 mcg PO Q30D [facility] Famotidine (Famotidine 20 Mg Tablet) 20 mg PO DAILY [facility] Last Admin: 12/16/21 09:44 Dose: 20 mg Documented by: ELIZABETH Haloperidol (Haloperidol 1 Mg Tablet) 1 mg PO DAILY [facility] Last Admin: 12/15/21 09:16 Dose: Not Given Documented by: BRENNAN Non-Admin Reason: See Note Dextrose/Lactated Ringer's (D5lr) 1,000 mls @ 50 mls/hr IVCONT .Q20H [facility] Last Admin: 12/16/21 05:22 Dose: 50 mls/hr Documented by: INES Ondansetron HCl (Ondansetron Hcl 4 Mg/2 Ml Vial) 4 mg IVPUSH Q8H PRN PRN Reason: Nausea and Vomiting Pharmacy Consult (Consult Rx Perform Med Rec) 1 each MISCELLANE ONCE PRN PRN Reason: Consult order Salmeterol Xinafoate (Salmeterol Xinafoate 50 Mcg Blst.W.Dev) 1 puff INHALE RBID [facility] Last Admin: 12/16/21 07:36 Dose: Not Given Documented by: AUGUSTINE Non-Admin Reason: Med Not Available Senna (Sennosides 8.6 Mg Tablet) 17.2 mg PO BID [facility] Last Admin: 12/16/21 09:44 Dose: 17.2 mg Documented by: ELIZABETH Labs CBC & Chem 7: 12/16/21 05:27 12/16/21 05:27 Labs: Laboratory Results - last 24 hr 12/15/21 12/15/21 12/15/21 13:22 14:09 17:07 MCV MCH MCHC RDW Plt Count MPV Absolute Nucleated RBC Nucleated RBC % (auto) Anion Gap Estim Creat Clear Calc Estimated GFR POC Glucose 99 118 H 127 H Random Glucose Calcium Lactate Dehydrogenase Total Creatine Kinase C-Reactive Protein 12/15/21 12/16/21 12/16/21 20:38 05:27 05:27 MCV 84.1 MCH 25.8 L MCHC 30.7 L RDW 14.4 Plt Count 292 MPV 12.1 Absolute Nucleated RBC 0.000 Nucleated RBC % (auto) 0.0 Anion Gap 10 L Estim Creat Clear Calc 59.1 Estimated GFR > 60 POC Glucose 109 Random Glucose 117 H Calcium 9.2 Lactate Dehydrogenase Total Creatine Kinase 35 C-Reactive Protein 12/16/21 12/16/21 12/16/21 05:27 07:17 10:59 MCV MCH MCHC RDW Plt Count MPV Absolute Nucleated RBC Nucleated RBC % (auto) Anion Gap Estim Creat Clear Calc Estimated GFR POC Glucose 118 H 163 H Random Glucose Calcium Lactate Dehydrogenase 130 Total Creatine Kinase C-Reactive Protein 0.82 H Assessment and Plan (1) Acute metabolic encephalopathy: Status: Acute (2) Hyperkalemia: Status: Acute (3) Adult failure to thrive: Status: Acute (4) COVID-19: Status: Acute Plan A 76 years old lady with PMH of diabetes, HLD, CVA with right hemiparesis, dementia among others who presented [facility] with altered mentation. 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, vaccinated Patient will need supportive measures mainly as she is not hypoxic Gentle hydration for today Encourage oral intake , started modified diet JOB COMPOSITOR evaluation To do physical therapy evaluation Metabolic encephalopathy CT, CTA were negative for any acute findings Multifactorial, likely result of COVID infection and polypharmacy Hold partially clozapine, hold haloperidol Recurrent reorientation Hyperkalemia Improved to 4.4 Follow BMP Diabetes type 2 Diabetic diet, SSI DVT PPX Lovenox Quality Stroke Does the patient have a stroke diagnosis?: No VTE Prior VTE?: No VTE Risk Level:: Medical - moderate - high VTE Device Contraindication: Treatment Not Indicated VTE Drug Contraindication: N/A - Med Ordered
--- NOTE | 2021-12-16 16:06 | MHC.SL.SWA ---
Speech Pathologist Impression: Risk of Aspiration Oralpharyngeal Dysphagia Risk of Aspiration Due to: Neurological Condition Reduced Cognition Dysphasia Diet Status: No Change Liquid Consistency and Strategies for Safe Swallow: Liquid Intake Recommendation: Thin Liquid Intake Strategies: Small Sips Solid Food Consistency: Dietary Recommendations: Grnd/Mech Altered (NDD2) Additional Modifications to Solid Foods: Recommend continue GROUND/MECH ALTERED (NDD2) solids and THIN liquids, pills CRUSHED in PUREE. 1:1 assistance feeding, continue aspiration precautions. RN, RD, MD notified via Exploretrip Message. MANAGER HEAVY DUTY will continue to follow. Oral Medication Intake: Crushed with Puree Compensatory Strategies and Precautions to be Taken for Safe Swallow: Sitting Upright (90 deg) Small Bites and Sips Alternate Liquids/Solids Rate of Ingestion Change Oral Check Supervision While Eating and Drinking for Safe Swallow: Total Assistance Foods to Avoid: Difficult or hard to chew foods Swallowing Recommended Treatments: Compens. Strategy Educat. Recommendation for Speech: Inpatient Speech Therapy Lithographers Printer Clinican/Clinical Fellow: No Supervisory Statement: I have reviewed and agree with the student/clinical fellow's documentation: N/A Speech Language Pathologist: Мария Simental M.A., CCC-MANAGER HEAVY DUTY
[2021-12-16 16:24] LABS: Glucose, Whole Blood 130 mg/dL (60-115)
[2021-12-16] MEDS: cloZAPine 25 MG TABLET PO (18:19)
[2021-12-16] MEDS: Enoxaparin Sodium 40 MG/0.4 ML SYRINGE SUBCUT (18:19)
[2021-12-16 20:23] LABS: Glucose, Whole Blood 198 mg/dL (60-115)
[2021-12-17] MEDS: Dextrose 5 % and Lactated Ring 1,000 ML 50 ML IVCONT (01:39)
[2021-12-17 04:00] VITALS: BP 162/76; PULSE 72; RESP 16; TEMP 36.9; O2SAT 97
[2021-12-17 07:10] LABS: Alanine Aminotransferase 10 U/L (0-31); Albumin Level 3.3 g/dL (3.5-5.0); Alkaline Phosphatase 49 U/L (39-117); Anion Gap 11 (12-20); Aspartate Amino Transferase 11 U/L (5-31); Bilirubin Direct < 0.2 mg/dL (0.0-0.5); Bilirubin Total 0.2 mg/dL (0.0-1.0); Blood Urea Nitrogen 9 mg/dL (9-16); Calcium 9.4 mg/dL (8.4-10.2); Carbon Dioxide 29 mmol/L (22-29); Chloride 106 mmol/L (96-108); Creatinine Clr Calc Pharmacy 55.3; Estimated Glomerular Filt Rate > 60; Glucose Random 115 mg/dL (60-115); Potassium 4.2 mmol/L (3.3-5.1); Sodium 142 mmol/L (135-145)
[2021-12-17 07:18] LABS: Glucose, Whole Blood 125 mg/dL (60-115)
[2021-12-17 07:32] VITALS: BP 157/70; PULSE 69; RESP 18; TEMP 37.2; O2SAT 98
[2021-12-17] MEDS: amLODIPine Besylate 5 MG TABLET PO (10:55)
[2021-12-17] MEDS: Clopidogrel Bisulfate 75 MG TABLET PO (10:55)
[2021-12-17] MEDS: Famotidine 20 MG TABLET PO (10:56)
[2021-12-17] MEDS: cloZAPine 25 MG TABLET 50 MG PO (10:56)
[2021-12-17] MEDS: Sennosides 8.6 MG TABLET 17.2 MG PO (10:56)
[2021-12-17 11:08] LABS: Glucose, Whole Blood 176 mg/dL (60-115)
[2021-12-17 11:14] VITALS: BP 167/68; PULSE 79; RESP 18; TEMP 36.8; O2SAT 97
--- NOTE | 2021-12-17 13:27 | MHC.CM.PN ---
Addendum entered by Leni Hayden 12/17/21 14:53: Patient scheduled for 4pm scrap picker. Soke with Steven [facility] @ [facility]. They will anticipate the patients return this evening. Original Note: IMM 12/17/21 Female Covid+ is discharged today. She will return to [facility] via BLS later today. Her guardian, Joy Trevizo was called. No answer, a with details regarding the discharge was left. Contact info for T/W was also provided in the VN..
--- NOTE | 2021-12-17 13:46 | P.DS_ITS ---
DS: Providers Provider Date of Service: 12/17/21 Date of admission: 12/14/21 16:39 Primary care physician: Unknown Physician DS: Diagnosis Discharge Diagnosis (1) Acute metabolic encephalopathy: Status: Acute (2) Hyperkalemia: Status: Acute (3) Adult failure to thrive: Status: Acute (4) COVID-19: Status: Acute DS: Summary Hospital Course Hospital Course: Admission note HPI A 76 years old lady with PMH of diabetes, HLD, CVA with right hemiparesis, dementia among others who presented from [facility] with altered mentation.? The patient was diagnosed with COVID almost 4 days ago and since then the a noticed a deterioration in the patient oral intake, mentation S she became more confused.? In the emergency she is easily arousable and able to talk to.? She knows she is in the hospital and with the year but she is not sure why she ended up here.? Confirm that she has been sick for the last few days.? Tested positive for COVID-19 infection with evidence of mild hyperkalemia of 5.6 Admitted for further evaluation and treatment. Hospital course The patient was evaluated for decreased oral intake and increase encephalopathy. Head CT, CTA were negative for any acute findings. Her symptoms were believed to be secondary to COVID-19 infection. Tested positive 5 days [employer]EWABLE [employer]ADER, vaccinated. Started onsupportive measures mainly as she is not hypoxic with IV fluid. Evaluated by speech therapy who recommended modified diet NDD 2. Haldol was held as the clozapine dose was decreased with good improvement as the patient was awake back to her baseline after discussing with her HCP. Evaluated by physical therapy team who recommended to go back to her senior facility. Encourage oral intake , NDD2 diet To follow with psychiatry regarding care Time Spent with Patient Time attestation: Total time spent providing and/or coordinating discharge services: Discharge coordination time: Greater than 30 minutes Quality: Stroke Does the patient have a stroke diagnosis?: No Physical Exam Verdana 4l Vital Signs: Verdana 4d Verdana 4d Vital Signs: Verdana 4d Verdana 4Bd Last Vital Signs Verdana 4d Work Station Support Specialist New 4d Work Station Support Specialist New 4d Temp 98.3 F 12/17/21 11:14 Work Station Support Specialist New 4d Pulse 79 12/17/21 11:14 Work Station Support Specialist New 4d Resp 18 12/17/21 11:14 BP 167/68 H 12/17/21 11:14 Pulse Ox 97 12/17/21 11:14 BMI result Body Mass Index 30.3 Const: Other: Constitutional : Alert, interactive not in distress, looks weak and exhausted Neck : Normal inspection, Supple Cardiovascular : No JVP, no lower extremity edema Respiratory : Chest wall moving bilaterally, not in respiratory distress Gastrointestinal: soft, lax, Normal bowel sounds, Non tender Skin : Warm, Dry Neurological : Alert oriented x 3, baseline right upper and lower extremity weakness DS: Data Data Completed and Pending Completed studies during hospitalization [Text1]: Procedures Introduction of Other Thrombolytic into Peripheral Vein, Percutaneous Approach (11/06/21) Labs on day of discharge: Laboratory Results - last 24 hr 12/16/21 12/16/21 12/17/21 15:35 20:03 06:05 Sodium Cancelled Potassium Cancelled Chloride Cancelled Carbon Dioxide Cancelled Anion Gap Cancelled BUN Cancelled Creatinine Cancelled Estim Creat Clear Calc Cancelled Estimated GFR Cancelled POC Glucose 130 H 198 H Random Glucose Cancelled Calcium Cancelled Total Bilirubin Direct Bilirubin AST ALT Alkaline Phosphatase Total Protein Albumin 12/17/21 12/17/21 12/17/21 06:05 07:12 11:02 Sodium 142 Potassium 4.2 Chloride 106 Carbon Dioxide 29 Anion Gap 11 L BUN 9 Creatinine 0.77 Estim Creat Clear Calc 55.3 Estimated GFR > 60 POC Glucose 125 H 176 H Random Glucose 115 Calcium 9.4 Total Bilirubin 0.2 Direct Bilirubin < 0.2 AST 11 ALT 10 Alkaline Phosphatase 49 Total Protein 6.0 L Albumin 3.[address] scan - head: Radiologist's impression: ITS Impressions Head CT 12/14/21 13:58 IMPRESSION: No acute intracranial pathology. This critical result was discussed with Dr. Wylie at 2:17 PM hours on 12/14/2021. It was ascertained that the content and urgency of the report was understood at the time of direct communication. Head/Neck CTA 12/14/21 14:26 IMPRESSION: 1. There are no acute bleeds or territorial infarcts. No masses are demonstrated. There is no abnormal enhancement. 2. There are chronic microvascular ischemic changes and there is diffuse volume loss. 3. There are no flow-limiting stenoses in the upper thoracic and cervical circulation. There are mild atheromatous calcifications. 4. Intracranially there is approximately 50% narrowing of the proximal/mid M1 segment of the left middle cerebral artery. There is irregularity of the proximal P2 segment of the right posterior cerebral artery. There are no aneurysms or vascular malformations. This critical result was discussed with Carlos Wylie by telephone on 12/14/2021 at C3 15 p.m. and it was ascertained that the content and urgency of the report was understood at the time of direct communication. Chest X-Ray 12/14/21 14:55 IMPRESSION: No acute change. Diminished lung volume. Discharge Plan Discharge Patient Disposition: Xfer [facility] Discharge Diagnosis: COVID-19 infection Metabolic encephalopathy Hyperkalemia Referrals: Physician,Unknown J [Primary Care Provider] - 1 Week Discharge Medications: Continued acetaminophen 500 mg Tablet 1,000 mg PO BID 0RF clozapine 200 mg Tablet 200 mg PO DAILY@1700 0RF Rx Instructions: TAKES WITH 25 MG TABLET FOR TOTAL DOSE OF 225 MG clozapine 25 mg Tablet 25 mg PO DAILY@1700 0RF Rx Instructions: TAKES WITH 200 MG TABLET FOR TOTAL DAILY DOSE OF 225 MG clozapine 50 mg Tablet 50 mg PO DAILY 0RF famotidine 20 mg Tablet 20 mg PO DAILY 0RF metformin 1,000 mg Tablet 1,000 mg PO BID 0RF sennosides [senna] 8.6 mg Tablet 17.2 mg PO BID 0RF Serevent Diskus 50 mcg/dose Blister With Device 1 inh INHALATION BID 0RF simvastatin 10 mg Tablet 10 mg PO QPM 0RF ergocalciferol (vitamin D2) 1,250 mcg (50,000 unit) Capsule 1,250 mcg PO QMONTH 0RF clopidogrel [Plavix] 75 mg tablet 75 mg PO DAILY Qty: 30 0RF Held haloperidol 1 mg Tablet 1 mg PO DAILY 0RF Hold Instructions: Per MD decision at SNF Discharge Orders: Discharge Order (Routine); Ordered 12/17/21 Ordered By: Jessica Srinivasan Diet: advance to usual diet Activity on Discharge: As tolerated Stand Alone Forms: Patient Portal Discharge page Care Plan Goals: Read below Health Concerns: Read below Plan of Treatment: Read below Assessment: Admitted for encephalopathy. Improved after holding Haldol and clozapine. To continue supportive therapy.
--- NOTE | 2021-12-17 14:56 | MHC.SL.SWA ---
Speech Pathologist Impression: Risk of Aspiration Oralpharyngeal Dysphagia Risk of Aspiration Due to: Neurological Condition Reduced Cognition Dysphasia Diet Status: No Change Liquid Consistency and Strategies for Safe Swallow: Liquid Intake Recommendation: Thin Liquid Intake Strategies: Small Sips No Straws Solid Food Consistency: Dietary Recommendations: Grnd/Mech Altered (NDD2) Additional Modifications to Solid Foods: Recommend continue GROUND/MECH ALTERED (NDD2) solids and THIN liquids, pills CRUSHED in PUREE. 1:1 assistance feeding, continue aspiration precautions. Oral Medication Intake: Crushed with Puree Compensatory Strategies and Precautions to be Taken for Safe Swallow: Sitting Upright (90 deg) No Straw Liquids from Cup Alternate Liquids/Solids Supervision While Eating and Drinking for Safe Swallow: Intermittent Supervision Foods to Avoid: Difficult or hard to chew foods Swallowing Recommended Treatments: Compens. Strategy Educat. Recommendation for Speech: Inpatient Speech Therapy:Pt seen during lunch today for toleration of diet, re-assessment of swallow. Pt had tray but was having difficulty scooping food to eat. Tray was adjusted so it was closer, MANAGER COSTING assisted w/ getting adequate amount of food on spoon. W/ this assistance Pt was able to self feed mouthfuls of Ground/Mech diet, combining meat and mashed potatoes w/ gravy. Pt has mild delay of oral phase and mild delay initiating swallow on mouthfuls of food. Pt was given cup w/liquid, Pt took sips of thin liquid from cup w/ good propulsion and swallow noted. Pt was encouraged to alternate liquids and solids during meal. No clinical s/s of aspiration noted, Pt tolerating recommended diet well. Will need some assist and periodic supervision during meals to make sure tray, utensils and liquids are accessible. Comment: Frequency/Duration: Date Range for Service Req: Timeline to reassess: Pharmacy Student Clinican/Clinical Fellow: No Supervisory Statement: I have reviewed and agree with the student/clinical fellow's documentation: N/A Speech Language Pathologist: Vani Chatterjee M.A., CCC-MANAGER COSTING
[2021-12-17 15:05] VITALS: PULSE 77; RESP 20; TEMP 36.6; O2SAT 94
[2021-12-17 15:56] LABS: Glucose, Whole Blood 147 mg/dL (60-115)
[2021-12-17] MEDS: cloZAPine 25 MG TABLET PO (17:08)
[2021-12-17] MEDS: Enoxaparin Sodium 40 MG/0.4 ML SYRINGE SUBCUT (17:08)
[2021-12-17] MEDS: cloZAPine 100 MG TABLET 200 MG PO (17:08)
== END 2021-12-17 16:45 | disposition skilled nursing facility (03) | DRG 177 ==
LOC: HO.ED 15:55 → HO.EDOVER 16:59 → HO.IMC 12-15 15:35
PROVIDERS: Admitting Provider Student in an Organized Health Care Education/Training Program; Emergency Provider Emergency Medicine; PCP Internal Medicine; Visit Provider Student in an Organized Health Care Education/Training Program
DX: U07.1 COVID-19 (principal); G93.41 Metabolic encephalopathy; I69.851 Hemiplegia and hemiparesis following other cerebrovascular disease affecting right dominant side; F25.9 Schizoaffective disorder, unspecified; E87.5 Hyperkalemia; G20 Parkinson's disease; F02.80 Dementia in other diseases classified elsewhere, unspecified severity, without behavioral disturbance, psychotic disturbance, mood disturbance, and anxiety; R62.7 Adult failure to thrive; Z68.30 Body mass index [BMI] 30.0-30.9, adult; E11.9 Type 2 diabetes mellitus without complications; Z88.0 Allergy status to penicillin; Z88.6 Allergy status to analgesic agent; Z79.84 Long term (current) use of oral hypoglycemic drugs; Z79.899 Other long term (current) drug therapy
CPT/HCPCS: 36415; 70450; 70496; 70498; 71045; 80048; 80053; 80076; 81001; 82550; 82947; 83615; 84484; 85025; 85027; 85610; 85730; 86140; 87635; 92526; 92610; 93005; 96360; 97162; 99285; J1650

== ENCOUNTER 2022-04-12 02:00 | Observation (INO) | payer MEDICARE, MEDICAID, SELFPAY ==
[2022-04-12] VITALS (13 sets, daily range): BP systolic 101–137; BP diastolic 41–81; PULSE 74–84; RESP 16–19; TEMP 36.4–36.8; O2SAT 93–99; BMI 27.6
--- NOTE | ~2022-04-12 | CT_ITS ---
EXAM: NONCONTRAST CT OF THE CHEST; NONCONTRAST CT OF THE ABDOMEN AND PELVIS INDICATION: Abdominal pain, vomiting, decreased left base breath sounds COMPARISON: None TECHNIQUE: No IV contrast was utilized. Multidetector helical imaging was performed through the chest, abdomen, and pelvis. Coronal and sagittal reformatted images were created at the technologist workstation. DOSE LOWERING TECHNIQUES: This CT examination was performed using dose optimization techniques as appropriate, variously including the following: - Automated exposure control - Adjustment of mA and/or kV according to patient size (this includes techniques or standardized protocols for targeted exams were dose is matched to indication/reason for exam; i.e. extremities or head) - Use of iterative reconstruction technique DLP: 1110 mGy-cm FINDINGS: Chest: Detailed parenchymal evaluation is limited in some regions due to respiratory motion artifact. Mild atelectasis is present bilaterally. No additional consolidation is seen. There is a partially calcified right middle lobe nodule measuring up to 8 mm on image 271/[id number]. Trace left pleural effusion noted. No pneumothorax. The visualized thyroid gland is unremarkable. There are subcentimeter mediastinal lymph nodes within the range of normal variation. Cardiac size is within normal limits; small pericardial effusion. There is atherosclerotic calcification along the aorta. Coronary artery calcifications are present. No axillary lymphadenopathy is present. Partially visualized nodular density in the right breast measuring approximately 2 cm with central calcification. Degenerative changes are noted in the spine. Abdomen/Pelvis: The liver is homogeneous in attenuation without intrahepatic biliary ductal dilatation. Cholelithiasis is noted. The unenhanced spleen, pancreas, and adrenal glands are unremarkable. The unenhanced kidneys show no hydronephrosis. Punctate calculus noted in the upper left kidney. Nonspecific bilateral perinephric stranding The urinary bladder is mildly distended and grossly unremarkable. The uterus and adnexa are unremarkable. Much of the colon is distended, and there is also mild distention of much of the small bowel without convincing evidence for obstruction. No significant bowel wall thickening is seen. No free fluid or free air is identified. Extensive vascular calcification is present. No retroperitoneal or pelvic lymphadenopathy is seen. Degenerative changes are noted in the spine. There is chronic appearing severe compression deformity of L1 with associated kyphosis and mild central canal narrowing. CT/CT abdomen pelvis wo con IMPRESSION: 1. Distended segments of small and large bowel, without convincing evidence for obstruction. Ileus is a possibility. 2. Trace left pleural effusion. Small pericardial effusion. 3. Partially calcified right middle lobe nodule measuring 8 mm, suboptimally assessed due to motion artifact. In the absence of prior studies to establish chronicity, follow-up chest CT in 3 months is advised for reevaluation. 4. Partially visualized nodular density in the right breast measuring approximately 2 cm. Further assessment with mammography is recommended if not recently performed. 5. Cholelithiasis.
--- NOTE | 2022-04-12 02:21 | ECG_ITS ---
Test Reason : NAUSEA Blood Pressure : / mmHG Vent. Rate : 082 BPM Atrial Rate : 082 BPM P-R Int : 146 ms QRS Dur : 068 ms QT Int : 400 ms P-R-T Axes : 063 048 078 degrees QTc Int : 467 ms Normal sinus rhythm Nonspecific T wave abnormality Abnormal ECG When compared with ECG of 14-DEC-2021 14:28, Nonspecific T wave abnormality now evident in Inferior leads Referred By: Viktoria Candelaria Electronically Signed By:Michael Zamudio
[2022-04-12 02:30] LABS: Glucose, Whole Blood 106 mg/dL (60-115)
[2022-04-12 03:01] LABS: Basophils Percent Auto 0.2 % (0-2); Eosinophils Absolute Auto 0.1 X10*3/uL (0.0-0.4); Eosinophils Percent Auto 0.6 % (0-4); Hematocrit 38.7 % (37.0-47.0); Hemoglobin 11.8 g/dl (12.0-16.0); Imm Gran Abs Auto 0.08 X10*3/uL (0.00-0.03); Imm Gran Pct Auto 0.6 % (0.0-0.4); Lymphocytes Percent Auto 14.8 % (20-40); MANUAL DIFF FLAG NO; Mean Corpuscular HGB Conc 30.5 g/dl (31.0-35.0); Mean Corpuscular Volume 85.2 fL (80.0-98.0); Mean Platelet Volume 11.5 fL (9.4-12.3); Monocytes Absolute Auto 0.6 X10*3/uL (0.1-1.2); Monocytes Percent Auto 4.5 % (2-11); Neutrophils Absolute Auto 10.5 x10*3/uL (2.0-8.3); Neutrophils Percent Auto 79.3 % (45-73); Platelet Count 324 X10*3/uL (160-400); Red Blood Count 4.54 X10*6/uL (4.20-5.50); White Blood Count 13.3 X10*3/uL (4.8-10.8)
[2022-04-12 03:02] LABS: Appearance Urine CLEAR; Color Urine YELLOW; Glucose Urine UA NEG (NEG); Leukocyte Esterase Urine NEG (NEG); Nitrite Urine NEG (NEG); PH 5.5 (5.0-8.0); Specific Gravity - Urine >= 1.030 (1.005-1.025); Urine Blood NEG (NEG); Urine Ketones 5 MG/DL (NEG); Urine Protein TRACE MG/DL (NEG-TRACE)
--- NOTE | 2022-04-12 03:03 | ED.GENADULT ---
HPI - General Adult General Chief complaint: Nausea/Vomiting/Diarrhea Stated complaint: vomiting blood Time Seen by Provider: 04/12/22 02:21 Source: patient and EMS Mode of arrival: EMS History of Present Illness HPI narrative: 76-year-old female with history right-sided deficits after CVA, dysphagia who presents via EMS from the sniff who states that patient had some bloody vomiting approximately 30 minutes ago and reports that patient has not had a bowel movement for 3 days. Currently, patient denies any pain and denies any shortness of breath or chest pain but reports that she did vomit prior to arrival. Related Data Home Medications Medication Instructions Recorded Confirmed acetaminophen 500 mg tablet 1,000 mg PO BID 11/06/21 12/14/21 clozapine 200 mg tablet 200 mg PO DAILY@1700 11/06/21 12/14/21 clozapine 25 mg tablet 25 mg PO DAILY@1700 11/06/21 12/14/21 clozapine 50 mg tablet 50 mg PO DAILY 11/06/21 12/14/21 ergocalciferol (vitamin D2) 1,250 1,250 mcg PO QMONTH 11/06/21 12/14/21 mcg (50,000 unit) capsule famotidine 20 mg tablet 20 mg PO DAILY 11/06/21 12/14/21 haloperidol 1 mg tablet 1 mg PO DAILY 11/06/21 12/14/21 metformin 1,000 mg tablet 1,000 mg PO BID 11/06/21 12/14/21 salmeterol 50 mcg/dose blister 1 inh INHALATION BID 11/06/21 12/14/21 powder for inhalation (Serevent Diskus) sennosides 8.6 mg tablet (senna) 17.2 mg PO BID 11/06/21 12/14/21 simvastatin 10 mg tablet 10 mg PO QPM 11/06/21 12/14/21 Previous Rx's Medication Instructions Recorded clopidogrel 75 mg tablet (Plavix) 75 mg PO DAILY #30 tab 11/08/21 Allergies Allergy/AdvReac Type Severity Reaction Status Date / Time MOSHE Inhibitors Allergy Unknown Unknown Verified 04/12/22 03:09 aspirin Allergy Unknown unknown Verified 04/12/22 03:09 erythromycin base Allergy Unknown unknown Verified 04/12/22 03:09 NSAIDS (Non-Steroidal Allergy Unknown Unknown Verified 04/12/22 03:09 Anti-Inflamma Penicillins Allergy Unknown unknown Verified 04/12/22 03:09 Review of Systems Review of Systems: Pertinent positives and negatives as stated in HPI 10 point review of systems is otherwise negative. FOR[facility]LY [facility], [facility] Past Medical History Source: nursing notes reviewed Medical History Anemia Chronic constipation Chronic hyponatremia COPD (chronic obstructive pulmonary disease) Dementia DM2 (diabetes mellitus, type 2) Dysphagia Edema GERD (gastroesophageal reflux disease) HLD (hyperlipidemia) Hyperkalemia Incontinence of urine in female OLVERA (nonalcoholic steatohepatitis) KEISHA (obstructive sleep apnea) Parkinsonian tremor Schizoaffective disorder Social History Social History Household Members: None Housing: [facility] Housing Other:: alf. Do you presently have visiting nurse or other home services: No Unable to assess alcohol history related to: Unable to respond Alcohol intake: unknown Patient Tobacco Use Status: Tobacco use Unknown Advance Directives: No Advance Directives Information Provided: No service: No Current occupational status: unemployed and disabled Physical Exam ED Vital Signs: Vital Signs - 24 hr 04/12/22 02:07 04/12/22 03:10 04/12/22 03:58 Temperature 97.6 F Pulse Rate 81 82 84 Respiratory Rate 17 17 16 Blood Pressure 115/67 124/63 104/61 Pulse Oximetry 97 97 95 04/12/22 04:40 04/12/22 05:55 04/12/22 06:06 Temperature Pulse Rate 80 77 77 Respiratory Rate 16 19 17 Blood Pressure 116/72 112/41 L 112/41 L Pulse Oximetry 99 97 04/12/22 07:10 Temperature 97.6 F Pulse Rate 84 Respiratory Rate 17 Blood Pressure 127/64 Pulse Oximetry 94 BMI result Body Mass Index 27.6 VITAL SIGNS: Reviewed. GENERAL: Chronically ill, elderly, in no acute distress. HEAD: Normocephalic/atraumatic EYES: PERRLA, EOMI EARS: Ext canals without abnormality OROPHARYNX: no oral lesions noted, posterior pharynx clear, dry mucosa, negative for stigmata of hematemesis NECK: Supple, no adenopathy LUNGS: Decreased breath sounds on the left but no tachypnea/rales/rhonchi. SpO2<99> CARDIOVASCULAR: Regular rate and rhythm without noted murmurs, no JVD or lower extremity edema. ABDOMEN: Soft, non-tender, non-distended with bowel sounds. MUSCULOSKELETAL: No tenderness, deformities, or effusions noted on gross inspection. EXTREMITIES: No cyanosis, clubbing or edema. SKIN: Inspection of the skin reveals no rashes NEUROLOGIC: Alert and oriented x 2. Right-sided deficits consistent with patient's history of CVA. Course Course Course Narrative: 76-year-old female with history and clinical presentation suggestive of possible aspiration, review all investigations negative for intra abdominal pathologies with LFTs within normal limits and CT scan demonstrating cholelithiasis. There is a small left pleural effusion as well as pericardial fusion the latter which does not demonstrate any evidence of hypotension. Serial H&H remained stable as well as no tachycardia or hypotension noted. It was, however, noted that patient's leukocytosis increased and suspect underlying chemical pneumonitis from the a vomiting episode. I discussed this case with inpatient hospitalist who accepts admission for observation. Medical Decision Making Lab Data Result diagrams: 04/12/22 06:33 04/12/22 02:43 Labs: Lab Results 04/12/22 04/12/22 04/12/22 Range/Units 02:25 02:43 02:43 WBC 13.3 H (4.8-10.8) X10*3/uL RBC 4.54 (4.20-5.50) X10*6/uL Hgb 11.8 L (12.0-16.0) g/dl Hct 38.7 (37.0-47.0) % MCV 85.2 (80.0-98.0) fL MCH 26.0 L (27.0-33.0) pg MCHC 30.5 L (31.0-35.0) g/dl RDW 17.0 H (11.0-16.0) % Plt Count 324 (160-400) X10*3/uL MPV 11.5 (9.4-12.3) fL Immature Gran % (Auto) 0.6 H (0.0-0.4) % Neut % (Auto) 79.3 H (45-73) % Lymph % (Auto) 14.8 L (20-40) % Mingo % (Auto) 4.5 (2-11) % Eos % (Auto) 0.6 (0-4) % Baso % (Auto) 0.2 (0-2) % Lymph # (Auto) 2.0 (1.2-4.9) X10*3/uL Mingo # (Auto) 0.6 (0.1-1.2) X10*3/uL Eos # (Auto) 0.1 (0.0-0.4) X10*3/uL Baso # (Auto) 0.0 (0.0-0.2) X10*3/uL Abs Immat Gran (auto) 0.08 H (0.00-0.03) X10*3/uL Absolute Neuts (auto) 10.5 H (2.0-8.3) x10*3/uL Absolute Nucleated RBC 0.000 (0.0-0.012) X10*3/uL Nucleated RBC % (auto) 0.0 (0.0-0.2) /100WBC PT (9.9-13.0) SEC INR (0.9-1.1) Sodium 139 (135-145) mmol/L Potassium 5.0 (3.3-5.1) mmol/L Chloride 106 (96-108) mmol/L Carbon Dioxide 21 L (22-29) mmol/L Anion Gap 17 (12-20) BUN 22 H D (9-16) mg/dL Creatinine 0.83 (0.5-1.4) mg/dL Estim Creat Clear Calc 42.8 Estimated GFR > 60 POC Glucose 106 (60-115) mg/dL Random Glucose 123 H (60-115) mg/dL Calcium 9.9 (8.4-10.2) mg/dL Total Bilirubin 0.2 (0.0-1.0) mg/dL AST 7 (5-31) U/L ALT < 6 (0-31) U/L Alkaline Phosphatase 44 (39-117) U/L Total Protein 6.8 (6.5-8.0) g/dL Albumin 3.7 (3.5-5.0) g/dL Urine Color Urine Appearance Urine pH (5.0-8.0) Ur Specific Walton (1.005-1.025) Urine Protein (NEG-TRACE) MG/DL Urine Glucose (UA) (NEG) MG/DL Urine Ketones (NEG) MG/DL Urine Blood (NEG) Urine Nitrite (NEG) Ur Leukocyte Esterase (NEG) 04/12/22 04/12/22 04/12/22 Range/Units 02:43 02:53 06:33 WBC 15.0 H (4.8-10.8) X10*3/uL RBC 4.43 (4.20-5.50) X10*6/uL Hgb 11.5 L (12.0-16.0) g/dl Hct 37.7 (37.0-47.0) % MCV 85.1 (80.0-98.0) fL MCH 26.0 L (27.0-33.0) pg MCHC 30.5 L (31.0-35.0) g/dl RDW 17.0 H (11.0-16.0) % Plt Count 328 (160-400) X10*3/uL MPV 11.6 (9.4-12.3) fL Immature Gran % (Auto) 0.4 (0.0-0.4) % Neut % (Auto) 79.8 H (45-73) % Lymph % (Auto) 14.0 L (20-40) % Mingo % (Auto) 4.9 (2-11) % Eos % (Auto) 0.7 (0-4) % Baso % (Auto) 0.2 (0-2) % Lymph # (Auto) 2.1 (1.2-4.9) X10*3/uL Mingo # (Auto) 0.7 (0.1-1.2) X10*3/uL Eos # (Auto) 0.1 (0.0-0.4) X10*3/uL Baso # (Auto) 0.0 (0.0-0.2) X10*3/uL Abs Immat Gran (auto) 0.06 H (0.00-0.03) X10*3/uL Absolute Neuts (auto) 12.0 H (2.0-8.3) x10*3/uL Absolute Nucleated RBC 0.000 (0.0-0.012) X10*3/uL Nucleated RBC % (auto) 0.0 (0.0-0.2) /100WBC PT 11.4 (9.9-13.0) SEC INR 1.0 (0.9-1.1) Sodium (135-145) mmol/L Potassium (3.3-5.1) mmol/L Chloride (96-108) mmol/L Carbon Dioxide (22-29) mmol/L Anion Gap (12-20) BUN (9-16) mg/dL Creatinine (0.5-1.4) mg/dL Estim Creat Clear Calc Estimated GFR POC Glucose (60-115) mg/dL Random Glucose (60-115) mg/dL Calcium (8.4-10.2) mg/dL Total Bilirubin (0.0-1.0) mg/dL AST (5-31) U/L ALT (0-31) U/L Alkaline Phosphatase (39-117) U/L Total Protein (6.5-8.0) g/dL Albumin (3.5-5.0) g/dL Urine Color YELLOW Urine Appearance CLEAR Urine pH 5.5 (5.0-8.0) Ur Specific Walton >= 1.030 H (1.005-1.025) Urine Protein TRACE (NEG-TRACE) MG/DL Urine Glucose (UA) NEG (NEG) MG/DL Urine Ketones 5 (NEG) MG/DL Urine Blood NEG (NEG) Urine Nitrite NEG (NEG) Ur Leukocyte Esterase NEG (NEG) ECG Data Attestation: I personally reviewed and interpreted this ECG as follows: Prior ECG tracings: available for review Interpretation: Normal sinus rhythm, HR-82, no STEMI, IL/QRS/QTC is within normal limits. Discharge Plan Discharge Clinical Impression: Chemical pneumonitis, Nausea & vomiting Patient Disposition: Admitted As Inpatient Prescriptions: No Action acetaminophen 500 mg Tablet 1,000 mg PO BID 0RF clozapine 200 mg Tablet 200 mg PO DAILY@1700 0RF Rx Instructions: TAKES WITH 25 MG TABLET FOR TOTAL DOSE OF 225 MG clozapine 25 mg Tablet 25 mg PO DAILY@1700 0RF Rx Instructions: TAKES WITH 200 MG TABLET FOR TOTAL DAILY DOSE OF 225 MG clozapine 50 mg Tablet 50 mg PO DAILY 0RF famotidine 20 mg Tablet 20 mg PO DAILY 0RF haloperidol 1 mg Tablet 1 mg PO DAILY 0RF Hold Instructions: Per MD decision at [facility] metformin 1,000 mg Tablet 1,000 mg PO BID 0RF sennosides [senna] 8.6 mg Tablet 17.2 mg PO BID 0RF Serevent Diskus 50 mcg/dose Blister With Device 1 inh INHALATION BID 0RF simvastatin 10 mg Tablet 10 mg PO QPM 0RF ergocalciferol (vitamin D2) 1,250 mcg (50,000 unit) Capsule 1,250 mcg PO QMONTH 0RF clopidogrel [Plavix] 75 mg tablet 75 mg PO DAILY Qty: 30 0RF
[2022-04-12 03:10] LABS: Prothrombin Time 11.4 SEC (9.9-13.0)
[2022-04-12 03:23] LABS: Alanine Aminotransferase < 6 U/L (0-31); Albumin Level 3.7 g/dL (3.5-5.0); Alkaline Phosphatase 44 U/L (39-117); Anion Gap 17 (12-20); Aspartate Amino Transferase 7 U/L (5-31); Bilirubin Total 0.2 mg/dL (0.0-1.0); Blood Urea Nitrogen 22 mg/dL (9-16); Calcium 9.9 mg/dL (8.4-10.2); Carbon Dioxide 21 mmol/L (22-29); Chloride 106 mmol/L (96-108); Creatinine Clr Calc Pharmacy 42.8; Estimated Glomerular Filt Rate > 60; Glucose Random 123 mg/dL (60-115); Sodium 139 mmol/L (135-145); Total Protein 6.8 g/dL (6.5-8.0)
[2022-04-12 06:38] LABS: Basophils Percent Auto 0.2 % (0-2); Eosinophils Absolute Auto 0.1 X10*3/uL (0.0-0.4); Eosinophils Percent Auto 0.7 % (0-4); Hematocrit 37.7 % (37.0-47.0); Hemoglobin 11.5 g/dl (12.0-16.0); Imm Gran Abs Auto 0.06 X10*3/uL (0.00-0.03); Imm Gran Pct Auto 0.4 % (0.0-0.4); Lymphocytes Absolute Auto 2.1 X10*3/uL (1.2-4.9); MANUAL DIFF FLAG NO; Mean Corpuscular HGB Conc 30.5 g/dl (31.0-35.0); Mean Corpuscular Volume 85.1 fL (80.0-98.0); Mean Platelet Volume 11.6 fL (9.4-12.3); Monocytes Absolute Auto 0.7 X10*3/uL (0.1-1.2); Monocytes Percent Auto 4.9 % (2-11); Neutrophils Percent Auto 79.8 % (45-73); Platelet Count 328 X10*3/uL (160-400); Red Blood Count 4.43 X10*6/uL (4.20-5.50)
[2022-04-12 08:46] LABS: Influenza A Negative (Negative); Influenza B2 Negative (Negative)
[2022-04-12 08:47] LABS: COVID-19 Test Negative (Negative); IDNOW Serial# 08D9AD1C
--- NOTE | 2022-04-12 09:05 | PHA.MEDREC ---
Pharmacy Consult ? Medication Reconciliation Pharmacy has completed the medication reconciliation. Recieved medication list from [facility]. Per record, patient last recieved clozaril 04/11/22 @ 0771
--- NOTE | 2022-04-12 09:30 | P.HPHOSP_ITS ---
History of Present Illness Date of Service: 04/12/22 Attending physician on admission: Guilherme Hauser Chief Complaint: Hemoptysis 76-year-old female with past medical history of diabetes, hyperlipidemia, history right-sided deficits after CVA, dysphagia who presents via EMS from the SNF after an episode of bloody vomiting approximately 30 minutes prior to arrival to ER and has not had a bowel movement for 3 days. Patient awake alert denies abdominal pain, denies fever chills, denies shortness of breath, no chest pain, no cough , denies lightheadedness dizziness, offers no symptoms of urinary frequency, no dysuria workup in the emergency room revealed normal hematocrit but noted to have elevated WBC count of 15,[address] abdomen was obtained that showed distended segments of small and large bowel without evidence of obstruction, ileus is a possibility, cholelithiasis, it showed no significant stool burden there was a small left pleural effusion as well as pericardial effusion, there was an incidental finding of 2 cm right breast nodule and 8 mm right lung partially calcified nodule noted for which outpatient mammography and and repeat CT chest in 3 months is recommended, due to rising WBC, hemoptysis, concerning for ileus,Cholelithiasis patient is being admitted for close monitoring and treatment. Review of Systems Review of Systems: General no headache no dizziness no fever chills. CVS no chest pain, no palpitation. Respiratory no cough, no sob. Gastrointestinal no nausea no vomiting, no abdominal pain Yes all other systems are reviewed and are negative [facility] Medical History Anemia Chronic constipation Chronic hyponatremia COPD (chronic obstructive pulmonary disease) Dementia DM2 (diabetes mellitus, type 2) Dysphagia Edema GERD (gastroesophageal reflux disease) HLD (hyperlipidemia) Hyperkalemia Incontinence of urine in female OLVERA (nonalcoholic steatohepatitis) KEISHA (obstructive sleep apnea) Parkinsonian tremor Schizoaffective disorder Pertinent family history: Patient unable to provide family history Social History Household Members: None Housing: Prison Housing Other:: senior living. Do you presently have visiting nurse or other home services: No Unable to assess alcohol history related to: Unable to respond Alcohol intake: unknown Patient Tobacco Use Status: Tobacco use Unknown Advance Directives: No Advance Directives Information Provided: No service: No Current occupational status: unemployed and disabled Meds Allergies Allergy/AdvReac Type Severity Reaction Status Date / Time MOSHE Inhibitors Allergy Unknown Unknown Verified 04/12/22 03:09 aspirin Allergy Unknown unknown Verified 04/12/22 03:09 erythromycin base Allergy Unknown unknown Verified 04/12/22 03:09 NSAIDS (Non-Steroidal Allergy Unknown Unknown Verified 04/12/22 03:09 Anti-Inflamma Penicillins Allergy Unknown unknown Verified 04/12/22 03:09 Active Medications: Current Medications Acetaminophen (Acetaminophen 325 Mg Tablet) 650 mg PO Q6H PRN PRN Reason: Pain, Mild (Pain Scale 1-3) Ondansetron HCl (Ondansetron Hcl 4 Mg/2 Ml Vial) 4 mg IVPUSH Q8H PRN PRN Reason: Nausea and Vomiting Pharmacy Consult (Consult Rx Perform Med Rec) 1 each MISCELLANE ONCE PRN PRN Reason: Consult order Sodium Chloride (0.9 % Sodium Chloride Flush 3 Ml Syringe) 3 ml IVFLUSH [facility] Home Medications Medication Instructions Recorded Confirmed Last Taken Type acetaminophen 500 mg tablet 1,000 mg PO BID 11/06/21 04/12/22 04/11/22 History clozapine 200 mg tablet 200 mg PO DAILY@1700 11/06/21 04/12/22 04/11/22 History clozapine 25 mg tablet 25 mg PO DAILY@1700 11/06/21 04/12/22 04/11/22 History clozapine 50 mg tablet 50 mg PO DAILY 11/06/21 04/12/22 04/11/22 History ergocalciferol (vitamin D2) 1,250 1,250 mcg PO QMONTH 11/06/21 04/12/22 03/13/22 History mcg (50,000 unit) capsule famotidine 20 mg tablet 20 mg PO DAILY 11/06/21 04/12/22 04/11/22 History metformin 1,000 mg tablet 1,000 mg PO BID 11/06/21 04/12/22 04/11/22 History salmeterol 50 mcg/dose blister 1 inh INHALATION BID 11/06/21 04/12/22 04/11/22 History powder for inhalation (Serevent Diskus) sennosides 8.6 mg tablet (senna) 17.2 mg PO BID 11/06/21 04/12/22 04/11/22 History simvastatin 10 mg tablet 10 mg PO QPM 11/06/21 04/12/22 04/11/22 History Physical Exam Vital Signs and Narrative: Vital Signs: Last Vital Signs Temp 97.6 F 04/12/22 07:10 Pulse 84 04/12/22 07:10 Resp 17 04/12/22 07:10 BP 127/64 04/12/22 07:10 Pulse Ox 94 04/12/22 07:10 BMI result Body Mass Index 27.6 Const: Other: General awake alert, resting comfortably in no acute distress. Neck no JVD. CVS regular rate rhythm, Respiratory lungs coarse breath sound bilaterally, no wheeze, no rhonchi, no use of accessory muscles Gastrointestinal abdomen soft, nontender, bowel sounds audible, no guarding , no rigidity. Extremities no edema. Neuro speech clear, mild right-sided hemiparesis Skin no rash Results Labs CBC and Chem 7: 04/12/22 06:33 04/12/22 02:43 Labs: Laboratory Results - last 24 hr 04/12/22 04/12/22 04/12/22 02:25 02:43 02:43 MCV 85.2 MCH 26.0 L MCHC 30.5 L RDW 17.0 H Plt Count 324 MPV 11.5 Immature Gran % (Auto) 0.6 H Neut % (Auto) 79.3 H Lymph % (Auto) 14.8 L [place] % (Auto) 4.5 Eos % (Auto) 0.6 Baso % (Auto) 0.2 Lymph # (Auto) 2.0 [place] # (Auto) 0.6 Eos # (Auto) 0.1 Baso # (Auto) 0.0 Abs Immat Gran (auto) 0.08 H Absolute Neuts (auto) 10.5 H Absolute Nucleated RBC 0.000 Nucleated RBC % (auto) 0.0 PT INR Anion Gap 17 Estim Creat Clear Calc 42.8 Estimated GFR > 60 POC Glucose 106 Random Glucose 123 H Calcium 9.9 Total Bilirubin 0.2 AST 7 ALT < 6 Alkaline Phosphatase 44 Total Protein 6.8 Albumin 3.7 Urine Color Urine Appearance Urine pH Ur Specific Anderson Urine Protein Urine Glucose (UA) Urine Ketones Urine Blood Urine Nitrite Ur Leukocyte Esterase COVID-19 (ANGELICA) COVID-19 Clin Com Influenza Type A (JABIER) Influenza Type B (JABIER) Influenza A & B Note 04/12/22 04/12/22 04/12/22 02:43 02:53 06:33 MCV 85.1 MCH 26.0 L MCHC 30.5 L RDW 17.0 H Plt Count 328 MPV 11.6 Immature Gran % (Auto) 0.4 Neut % (Auto) 79.8 H Lymph % (Auto) 14.0 L [place] % (Auto) 4.9 Eos % (Auto) 0.7 Baso % (Auto) 0.2 Lymph # (Auto) 2.1 [place] # (Auto) 0.7 Eos # (Auto) 0.1 Baso # (Auto) 0.0 Abs Immat Gran (auto) 0.06 H Absolute Neuts (auto) 12.0 H Absolute Nucleated RBC 0.000 Nucleated RBC % (auto) 0.0 PT 11.4 INR 1.0 Anion Gap Estim Creat Clear Calc Estimated GFR POC Glucose Random Glucose Calcium Total Bilirubin AST ALT Alkaline Phosphatase Total Protein Albumin Urine Color YELLOW Urine Appearance CLEAR Urine pH 5.5 Ur Specific Anderson >= 1.030 H Urine Protein TRACE Urine Glucose (UA) NEG Urine Ketones 5 Urine Blood NEG Urine Nitrite NEG Ur Leukocyte Esterase NEG COVID-19 (ANGELICA) COVID-19 Clin Com Influenza Type A (JABIER) Influenza Type B (JABIER) Influenza A & B Note 04/12/22 04/12/22 08:06 08:06 MCV MCH MCHC RDW Plt Count MPV Immature Gran % (Auto) Neut % (Auto) Lymph % (Auto) [place] % (Auto) Eos % (Auto) Baso % (Auto) Lymph # (Auto) [place] # (Auto) Eos # (Auto) Baso # (Auto) Abs Immat Gran (auto) Absolute Neuts (auto) Absolute Nucleated RBC Nucleated RBC % (auto) PT INR Anion Gap Estim Creat Clear Calc Estimated GFR POC Glucose Random Glucose Calcium Total Bilirubin AST ALT Alkaline Phosphatase Total Protein Albumin Urine Color Urine Appearance Urine pH Ur Specific Anderson Urine Protein Urine Glucose (UA) Urine Ketones Urine Blood Urine Nitrite Ur Leukocyte Esterase COVID-19 (ANGELICA) Negative COVID-19 Clin Com See Note Influenza Type A (JABIER) Negative Influenza Type B (JABIER) Negative Influenza A & B Note See Note Imaging Radiologist's Impressions: Impressions Abdomen/Pelvis CT 04/12/22 05:20 IMPRESSION: 1. Distended segments of small and large bowel, without convincing evidence for obstruction. Ileus is a possibility. 2. Trace left pleural effusion. Small pericardial effusion. 3. Partially calcified right middle lobe nodule measuring 8 mm, suboptimally assessed due to motion artifact. In the absence of prior studies to establish chronicity, follow-up chest CT in 3 months is advised for reevaluation. 4. Partially visualized nodular density in the right breast measuring approximately 2 cm. Further assessment with mammography is recommended if not recently performed. 5. Cholelithiasis. Chest CT 04/12/22 05:20 IMPRESSION: 1. Distended segments of small and large bowel, without convincing evidence for obstruction. Ileus is a possibility. 2. Trace left pleural effusion. Small pericardial effusion. 3. Partially calcified right middle lobe nodule measuring 8 mm, suboptimally assessed due to motion artifact. In the absence of prior studies to establish chronicity, follow-up chest CT in 3 months is advised for reevaluation. 4. Partially visualized nodular density in the right breast measuring approximately 2 cm. Further assessment with mammography is recommended if not recently performed. 5. Cholelithiasis. Assessment and Plan (1) Chemical pneumonitis: Status: Acute (2) Nausea & vomiting: Status: Acute Plan 76-year-old female with past medical history of diabetes mellitus type 2, hyperlipidemia, CVA with right hemiparesis, dementia sent to [facility] due to an episode of bloody vomitus with constipation. bloody vomitus Had 1 episode at nursing facility no recurrent episode since arrival, question etiology CT abdomen showed no acute abnormality no significant stool burden likely mild ileus Patient on Plavix likely due to aspirin allergy, continue Pepcid,no epigastric tenderness. Follow CBC and clinical course Concern for aspiration pneumonia will hold antibiotics since patient afebrile a nd asymptomatic, repeat CBC at a.m. monitor oxygenation COPD no acute exacerbation continue home inhalers Diabetes mellitus type 2 will hold metformin and [address] on diabetic diet and insulin sliding scale Hyperlipidemia continue statin History of CVA with mild right hemiparesis Schizoaffective disorder continue home medication Right breast nodule recommend outpatient mammogram Right lung nodule recommend outpatient CT chest in 3 months Code status full code DVT prophylaxis with heparin Quality Stroke Does the patient have a stroke diagnosis?: No VTE Prior VTE?: No VTE Risk Level:: Medical - moderate - high VTE Device Contraindication: Treatment Not Indicated VTE Drug Contraindication: N/A - Med Ordered
[2022-04-12 13:49] LABS: Glucose, Whole Blood 74 mg/dL (60-115)
[2022-04-12] MEDS: cloZAPine 25 MG TABLET 50 MG PO (14:22)
[2022-04-12] MEDS: 0.9 % Sodium Chloride Flush 3 ML SYRINGE IVFLUSH (14:22)
[2022-04-12] MEDS: Enoxaparin Sodium 40 MG/0.4 ML SYRINGE SUBCUT (14:22)
--- NOTE | 2022-04-12 15:39 | PC.NURSE ---
PATIENT WAS INC OF LARGE AMOUNT OF URINE ,YELLOW IN COLOR ,BED BATH GIVEN ,BEDDING CHANGE .EXTRA WARM BLANKET GIVEN PATIENT REPOSITION ON LEFT SIDE WITH PILLOWS BEHIND BACK AND BETWEEN LEGS .
[2022-04-12] MEDS: cloZAPine 100 MG TABLET 200 MG PO (17:25)
[2022-04-12] MEDS: cloZAPine 25 MG TABLET PO (17:25)
--- NOTE | 2022-04-12 21:15 | PC.NURSE ---
PATIENT WAS INC OF URINE ,CARE WAS DONE ,PATIENT NOW SLEEPING .
[2022-04-13] VITALS: RESP 18
[2022-04-13 07:21] LABS: Hematocrit 36.3 % (37.0-47.0); Hemoglobin 11.2 g/dl (12.0-16.0); Mean Corpuscular HGB Conc 30.9 g/dl (31.0-35.0); Mean Corpuscular Hemoglobin 25.8 pg (27.0-33.0); Mean Corpuscular Volume 83.6 fL (80.0-98.0); Mean Platelet Volume 11.8 fL (9.4-12.3); Platelet Count 257 X10*3/uL (160-400); Red Blood Count 4.34 X10*6/uL (4.20-5.50); White Blood Count 8.8 X10*3/uL (4.8-10.8)
[2022-04-13 07:42] LABS: Anion Gap 14 (12-20); Blood Urea Nitrogen 19 mg/dL (9-16); Calcium 9.1 mg/dL (8.4-10.2); Carbon Dioxide 24 mmol/L (22-29); Chloride 106 mmol/L (96-108); Creatinine Clr Calc Pharmacy 52.3; Estimated Glomerular Filt Rate > 60; Glucose Random 85 mg/dL (60-115); Potassium 4.6 mmol/L (3.3-5.1); Sodium 139 mmol/L (135-145)
[2022-04-13 07:49] VITALS: BP 122/47; PULSE 72; RESP 16; TEMP 36.7
[2022-04-13] MEDS: Salmeterol Xinafoate 50 MCG BLST.W.DEV 1 PUFF INHALE (08:08)
[2022-04-13 08:10] VITALS: PULSE 73; RESP 20; O2SAT 93
[2022-04-13] MEDS: Famotidine 20 MG TABLET PO (09:18)
[2022-04-13] MEDS: Enoxaparin Sodium 40 MG/0.4 ML SYRINGE SUBCUT (09:18)
[2022-04-13] MEDS: Clopidogrel Bisulfate 75 MG TABLET PO (09:18)
[2022-04-13] MEDS: 0.9 % Sodium Chloride Flush 3 ML SYRINGE IVFLUSH ×2 (09:18→17:13)
[2022-04-13] MEDS: cloZAPine 25 MG TABLET 50 MG PO (09:18)
[2022-04-13] MEDS: Sennosides 8.6 MG TABLET 17.2 MG PO (09:18)
--- NOTE | 2022-04-13 11:08 | P.DS_ITS ---
DS: Providers Provider Date of Service: 04/13/22 Date of admission: 04/12/22 09:25 Primary care physician: Unknown Physician DS: Diagnosis Discharge Diagnosis (1) Chemical pneumonitis: Status: Acute (2) Nausea & vomiting: Status: Acute DS: Summary Hospital Course Hospital Course: Chief Complaint: Hemoptysis 76-year-old female with past medical history of diabetes, hyperlipidemia, history right-sided deficits after CVA, dysphagia who presents via EMS from the SNF after an episode of bloody vomiting approximately 30 minutes prior to arrival to ER and has not had a bowel movement for 3 days.? Patient awake alert denies abdominal pain, denies fever chills, denies shortness of breath, no chest pain, no cough , denies lightheadedness dizziness, offers no symptoms of urinary frequency, no dysuria workup in the emergency room revealed normal hematocrit but noted to have elevated WBC count of 15,[address] abdomen was obtained that showed distended segments of small and large bowel without evidence of obstruction, ileus is a possibility, cholelithiasis, it showed no significant stool burden there was a small left pleural effusion as well as pericardial effusion, there was an incidental finding of 2 cm right breast nodule and 8 mm right lung partially calcified nodule noted for which outpatient mammography and and repeat CT chest in 3 months is recommended, due to rising WBC, hemoptysis, concerning for ileus,Cholelithiasis?patient is being admitted for close monitoring and treatment. Hospital course 76-year-old female with past medical history of diabetes mellitus type 2, hype rlipidemia, CVA with right hemiparesis, dementia sent to [facility] due to an episode of bloody vomitus with constipation. She had 1 episode of vomiting at nursing facility, no recurrent episode since admission, question etiology CT abdomen showed no acute abnormality, no significant stool burden likely mild ileus, patient admitted under observation with concern for aspiration pneumonia due to elevated leukocytosis, patient remained asymptomatic with no shortness of breath, no hypoxia, therefore not treated with antibiotics, currently patient is tolerating diet with no nausea, no vomiting, hematocrit is stable therefore she is being discharged back,patient on Plavix likely due to aspirin allergy, continue Pepcid,no epigastric pain or tenderness noted. COPD no acute exacerbation noted continue home inhalers. Diabetes mellitus type 2 continue home medication. Hyperlipidemia continue statin. History of CVA with mild right hemiparesis. Schizoaffective disorder continue home medication. Right breast nodule recommend outpatient mammogram. Right lung nodule recommend outpatient CT chest in 3 months. Time Spent with Patient Time attestation: Total time spent providing and/or coordinating discharge services: Discharge coordination time: Greater than 30 minutes Quality: Safe Use of Opioids Does Pt have an Active Cancer Diagnosis on the Problem List?: No Quality: Stroke Does the patient have a stroke diagnosis?: No Physical Exam Vital Signs: Vital Signs: Last Vital Signs Temp 98.0 F 04/13/22 07:49 Pulse 73 04/13/22 08:10 Resp 20 04/13/22 08:10 BP 122/47 L 04/13/22 07:49 Pulse Ox 96 04/12/22 22:03 BMI result Body Mass Index 27.6 Const: Other: General awake alert, resting comfortably in no acute distress.? Neck no JVD. CVS? regular rate rhythm, Respiratory lungs coarse breath sound bilaterally, no wheeze, no rhonchi, no use of accessory muscles Gastrointestinal abdomen soft, nontender, bowel sounds audible, no guarding , no rigidity. Extremities no edema. Neuro? speech clear, mild right-sided hemiparesis Skin no rash DS: Data Data Completed and Pending Completed studies during hospitalization [Text1]: Procedures Introduction of Other Thrombolytic into Peripheral Vein, Percutaneous Approach (11/06/21) Labs on day of discharge: Laboratory Results - last 24 hr 04/12/22 04/13/22 04/13/22 13:46 05:59 05:59 WBC 8.8 RBC 4.34 Hgb 11.2 L Hct 36.3 L MCV 83.6 MCH 25.8 L MCHC 30.9 L RDW 17.0 H Plt Count 257 MPV 11.8 Absolute Nucleated RBC 0.000 Nucleated RBC % (auto) 0.0 Sodium 139 Potassium 4.6 Chloride 106 Carbon Dioxide 24 Anion Gap 14 BUN 19 H Creatinine 0.68 Estim Creat Clear Calc 52.3 Estimated GFR > 60 POC Glucose 74 Random Glucose 85 Calcium 9.1 D Discharge Plan Discharge Patient Disposition: Xfer SNF Discharge Diagnosis: Bloody vomitus Leukocytosis Right breast nodule Right lung nodule Referrals: Physician,Unknown J [Primary Care Provider] - 1 Week Discharge Medications: Continued acetaminophen 500 mg Tablet 1,000 mg PO BID 0RF clozapine 200 mg Tablet 200 mg PO DAILY@1700 0RF Rx Instructions: TAKES WITH 25 MG TABLET FOR TOTAL DOSE OF 225 MG clozapine 25 mg Tablet 25 mg PO DAILY@1700 0RF Rx Instructions: TAKES WITH 200 MG TABLET FOR TOTAL DAILY DOSE OF 225 MG clozapine 50 mg Tablet 50 mg PO DAILY 0RF famotidine 20 mg Tablet 20 mg PO DAILY 0RF metformin 1,000 mg Tablet 1,000 mg PO BID 0RF sennosides [senna] 8.6 mg Tablet 17.2 mg PO BID 0RF Serevent Diskus 50 mcg/dose Blister With Device 1 inh INHALATION BID 0RF simvastatin 10 mg Tablet 10 mg PO QPM 0RF ergocalciferol (vitamin D2) 1,250 mcg (50,000 unit) Capsule 1,250 mcg PO QMONTH 0RF clopidogrel [Plavix] 75 mg tablet 75 mg PO DAILY Qty: 30 0RF Discharge Orders: Discharge Order (Routine); Ordered 04/13/22 Ordered By: Guilherme Hauser Diet: advance to usual diet Activity on Discharge: As tolerated Stand Alone Forms: Patient Portal Discharge page Care Plan Goals: One episode of bloody vomitus resolved with no recurrence, hematocrit remains stable, leukocytosis resolved was likely reactive, no shortness of breath or hypoxia Accidental finding of right breast no dual outpatient mammographies recommended Right lung nodule three-month follow-up chest CT recommended by Radiology Health Concerns: Continue all home medication as before Plan of Treatment: Outpatient follow-up with primary care physician Outpatient mammography for follow-up on right breast nodule Outpatient CT chest in 3 months to follow-up on right lung nodule Assessment: As per discharge summary
--- NOTE | 2022-04-13 11:13 | PC.NURSE ---
Per facesheet in patient's physical chart, patient from [facility]. Discharge order in [place] Text to case management to coordinate transport.
--- NOTE | 2022-04-13 11:34 | MHC.CM.PN ---
CM CALLED PTS LEGAL GUARDIAN, ALISSON ACUÑA [phone]. 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 OBSERVATION NOTICE DELIVERED, COPY SENT TO MEDICAL RECORDS A COPY WILL BE EMAILED TO ALISSON AT [email or web address] ALISSON IS AWARE PT WILL RETURN TODAY VIA BLS
[2022-04-13 17:02] VITALS: BP 121/60; PULSE 74; RESP 14; TEMP 36.6; O2SAT 99
[2022-04-13] MEDS: cloZAPine 100 MG TABLET 200 MG PO (17:13)
[2022-04-13] MEDS: cloZAPine 25 MG TABLET PO (17:13)
== END 2022-04-13 22:05 | disposition skilled nursing facility (03) ==
LOC: HO.ED 07:59 → HO.EDOVER 10:08
PROVIDERS: Admitting Provider Hospitalist; Emergency Provider Student in an Organized Health Care Education/Training Program; Visit Provider Hospitalist
DX: J68.0 Bronchitis and pneumonitis due to chemicals, gases, fumes and vapors (principal); R11.2 Nausea with vomiting, unspecified; R10.9 Unspecified abdominal pain; R91.1 Solitary pulmonary nodule; I25.10 Atherosclerotic heart disease of native coronary artery without angina pectoris; K80.20 Calculus of gallbladder without cholecystitis without obstruction; E11.9 Type 2 diabetes mellitus without complications; E78.5 Hyperlipidemia, unspecified; E87.5 Hyperkalemia; I69.951 Hemiplegia and hemiparesis following unspecified cerebrovascular disease affecting right dominant side; I69.991 Dysphagia following unspecified cerebrovascular disease; R13.10 Dysphagia, unspecified; D72.829 Elevated white blood cell count, unspecified; I31.3 Pericardial effusion (noninflammatory); J90 Pleural effusion, not elsewhere classified; N63.10 Unspecified lump in the right breast, unspecified quadrant; G20 Parkinson's disease; Z20.822 Contact with and (suspected) exposure to COVID-19; Z88.6 Allergy status to analgesic agent; Z88.0 Allergy status to penicillin; Z88.8 Allergy status to other drugs, medicaments and biological substances; Z79.84 Long term (current) use of oral hypoglycemic drugs; Z79.899 Other long term (current) drug therapy
CPT/HCPCS: 36415; 71250; 74176; 80048; 80053; 81003; 82947; 85025; 85027; 85610; 87502; 87635; 93005; 96372; 96374; 99218; 99285; J1650

== ENCOUNTER 2022-04-28 13:10 | Outpatient (REF) | payer MEDICARE, MEDICAID, SELFPAY ==
--- NOTE | ~2022-04-28 | MM_ITS ---
EXAMINATION: MM SCREENING DIGITAL BREAST TOMOSYNTHESIS, BILATERAL CLINICAL INFORMATION: Screening. Asymptomatic. Age 76. No prior mammography. The lifetime risk of breast cancer based on the Tyrer-Cuzick Model is 8%. COMPARISON: None (current study represents initial baseline exam). TECHNIQUE: Digital breast tomosynthesis is performed in both the craniocaudal and mediolateral oblique views along with computer-aided detection (CAD). Synthesized 2D images are generated from the tomosynthesis. Technically challenging exam. Patient imaged in wheelchair, exam tailored to patient capabilities. FINDINGS: There are scattered areas of fibroglandular density (ACR BI-RADS breast composition Category b). There are multiple similar appearing nodularity scattered in both breasts many with coarse central calcifications. Largest nodule on left is heavily calcified posterior upper outer quadrant measuring 1.2 cm, likely degenerating fibroadenoma. Largest nodule right is macrolobulated anterior upper outer breast 2.0 cm with benign coarse central calcification. There is no architectural abnormality. There are other scattered benign coarse and some ductal secretory calcifications. The skin contours are smooth. No skin retraction or thickening or coarsening of the Rikki's ligaments. MM/MM tomosynthesis screening BI IMPRESSION: -Multiple bilateral similar appearing nodularity, many with benign coarse central calcifications. -No architectural abnormality or abnormal calcifications. ASSESSMENT: BI-RADS 2: Benign RECOMMENDATION: Routine annual mammography screening. This patient's information was entered into a reminder system with a target due date for their next mammogram.
== END 2022-04-28 13:11 | disposition home or self-care (01) ==
LOC: HO.MAMMO 13:10
PROVIDERS: PCP Internal Medicine; Visit Provider Internal Medicine
DX: Z12.31 Encounter for screening mammogram for malignant neoplasm of breast (principal)
CPT/HCPCS: 77063; 77067

== ENCOUNTER 2024-08-09 15:34 | Inpatient (IN) | payer MEDICARE, MEDICAID, SELFPAY ==
--- NOTE | ~2024-08-09 | US_ITS ---
EXAMINATION: RIGHT LOWER EXTREMITY ARTERIAL DUPLEX ULTRASOUND CLINICAL INFORMATION: Cold right lower extremity. Hyperlipidemia. Diabetes. COMPARISON: None available. TECHNIQUE: Duplex Doppler techniques with waveform analysis and measurement of velocities in the common femoral, profunda femoris, superficial femoral, popliteal and tibial arteries were performed. FINDINGS: RIGHT LOWER EXTREMITY DUPLEX ULTRASOUND: Common femoral artery: No flow visualized. Profunda femoris artery: Not visualized by the technologist. Superficial femoral artery (proximal): No flow visualized. Superficial femoral artery (mid): No flow visualized. Superficial femoral artery (distal): No flow visualized. Popliteal artery: No flow visualized. Posterior tibial artery: No flow visualized. US/US arterial duplex LE RT IMPRESSION: No arterial flow within the right lower extremity could not be visualized by the technologist. Cannot exclude complete occlusion. A preliminary report was provided to Dr. Cruz. Electronically signed by: Gabriel Wallace MD 08/13/2024 05:12 PM EDT
--- NOTE | ~2024-08-09 | XR_ITS ---
EXAMINATION: XR CHEST CLINICAL INFORMATION: Altered mental status. Shortness of breath. COMPARISON: December 14, 2021 TECHNIQUE: Frontal view of the chest was obtained. FINDINGS: The cardiomediastinal silhouette is stable. There is no focal lung consolidation or pleural effusions. The bony structures and soft tissues are unremarkable XR/XR chest 1V IMPRESSION: No acute cardiopulmonary process. Electronically signed by: Karthik Macedo MD 08/09/2024 11:59 PM EDT
--- NOTE | ~2024-08-09 | CT_ITS ---
EXAMINATION: CT HEAD WITHOUT CONTRAST CLINICAL INFORMATION: Altered mental status. COMPARISON: December 13, 2021. TECHNIQUE: Contiguous axial imaging was performed from the skull base to vertex without intravenous administration of contrast. This CT examination was performed using dose optimization techniques as appropriate, variously including the following: *Automated exposure control *Adjustment of mA and/or kV according to patient size (this includes techniques or standardized protocols for targeted exams where dose is matched to indication/reason for exam; i.e. extremities or head) *Use of iterative reconstruction technique DLP: 657 mGy-cm FINDINGS: There is cerebral volume loss with prominence of the lateral and third ventricles. The cortical sulci are widened appropriately. The fourth ventricle and basal cisterns are normally outlined. There is mild bilateral periventricular and central white matter diminished attenuation. Bilateral old basal ganglia lacunar infarcts are noted. There is no acute territorial defects, hemorrhage or midline shift. The extra-axial spaces are unremarkable. Calvarium/scalp: Intact. Maxillofacial sinuses and mastoids: Clear as visualized. CT/CT head/brain wo IV con IMPRESSION: 1. No acute territorial infarct, hemorrhage, or midline shift. 2. Mild bilateral periventricular and central white matter diminished attenuation likely chronic microangiopathy. 3. Old bilateral basal ganglia lacunar infarcts. 4. Mild cerebral volume loss. Electronically signed by: Karthik Macedo MD 08/09/2024 11:27 PM EDT
[2024-08-09 15:54] VITALS: BP 194/59; BP 194/66; PULSE 89; RESP 20; TEMP 36.6; BMI 26.4
--- NOTE | 2024-08-09 16:21 | ED_ITS ---
HPI - Altered Mental Status General Chief Complaint: Behavioral Concerns Stated Complaint: sect 12, confusion, combative Time Seen by Provider: 08/09/24 16:06 Source: patient Mode of arrival: EMS Limitations: altered mental status History of Present Illness ED Provider: Dr. 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 The patient is uncooperative and will not answer questions. She is lying on her side and refuses to move approach became agitated and struck out at me and continue to try to hit me despite me trying to redirect her. According to the triage note, the patient was sent on a section 12 from [facility] for change in baseline behavior x4 days. The patient has refused her medications for 2 days. She has been agitated and combative at times. Staff reports that she has had labs recently that were unremarkable but she refused to give a urine sample. Was reported that the patient is normally redirectable. She does have a history of dementia and schizoaffective disorder. The patient is on clonazepam in her dose was changed recently. Related Data Home Medications ?Medication ?Instructions ?Recorded ?Confirmed acetaminophen 500 mg tablet 1,000 mg PO BID 11/06/21 04/12/22 clozapine 200 mg tablet 200 mg PO DAILY@1700 11/06/21 04/12/22 clozapine 25 mg tablet 25 mg PO DAILY@1700 11/06/21 04/12/22 clozapine 50 mg tablet 50 mg PO DAILY 11/06/21 04/12/22 ergocalciferol (vitamin D2) 1,250 1,250 mcg PO QMONTH 11/06/21 04/12/22 mcg (50,000 unit) capsule famotidine 20 mg tablet 20 mg PO DAILY 11/06/21 04/12/22 metformin 1,000 mg tablet 1,000 mg PO BID 11/06/21 04/12/22 salmeterol 50 mcg/dose blister 1 inh inhalation BID 11/06/21 04/12/22 powder for inhalation (Serevent Diskus) sennosides 8.6 mg tablet (senna) 17.2 mg PO BID 11/06/21 04/12/22 simvastatin 10 mg tablet 10 mg PO QPM 11/06/21 04/12/22 Previous Rx's ?Medication ?Instructions ?Recorded clopidogrel 75 mg tablet (Plavix) 75 mg PO DAILY #30 tabs 11/08/21 Allergies Allergy/AdvReac Type Severity Reaction Status Date / Time MOSHE Inhibitors Allergy Unknown Unknown Verified 08/09/24 16:03 aspirin Allergy Unknown unknown Verified 08/09/24 16:03 erythromycin base Allergy Unknown unknown Verified 08/09/24 16:03 NSAIDS (Non-Steroidal Allergy Unknown Unknown Verified 08/09/24 16:03 Anti-Inflamma Penicillins Allergy Unknown unknown Verified 08/09/24 16:03 Review of Systems 2 Review of Systems: Yes Unobtainable due to mental condition [facility] Past Medical History Medical History Anemia Chronic constipation Chronic hyponatremia COPD (chronic obstructive pulmonary disease) Dementia DM2 (diabetes mellitus, type 2) Dysphagia Edema GERD (gastroesophageal reflux disease) HLD (hyperlipidemia) Hyperkalemia Incontinence of urine in female OLVERA (nonalcoholic steatohepatitis) KEISHA (obstructive sleep apnea) Parkinsonian tremor Schizoaffective disorder Social History Social History Household Members: None Housing: [facility] Other:: jail. Do you presently have visiting nurse or other home services: No Unable to assess alcohol history related to: Unable to respond Alcohol intake: unknown Patient Tobacco Use Status: Tobacco use Unknown Advance Directives: No Advance Directives Information Provided: No Do you have a plan to hurt others: No Plan service: No Current occupational status: unemployed and disabled Physical Exam ED Vital Signs: Vital Signs - 24 hr 08/09/24 15:54 08/09/24 15:54 08/09/24 19:04 Temperature 97.9 F 97.9 F Pulse Rate 89 89 72 Respiratory Rate 20 20 18 Blood Pressure 194/59 H 194/66 H 179/50 H Pulse Oximetry Oxygen Delivery Method 08/09/24 19:19 08/09/24 19:34 08/10/24 02:32 Temperature 98.1 F Pulse Rate 63 Respiratory Rate 16 16 16 Blood Pressure 141/57 H 148/53 H 125/53 L Pulse Oximetry 92 Oxygen Delivery Method Room Air BMI result Body Mass Index 26.4 Vital signs revealed an elevated blood pressure of 194/59, patient was afebrile with a normal heart rate Exam: General: Patient is in a hallway bed, lying on her side facing the wall, she would not respond to verbal stimuli. When I tried to turn her over she became violent and tried to punch me, she then lying on the stretcher and continue to try to strike out at me despite no longer stimulating her. When I walked away she quieted down and again I would on her side facing the wall. Head: Normocephalic, atraumatic Lung: breath sounds symmetric, no wheezing, rales or rhonchi Heart: regular rate and rhythm, normal S1, S2 no murmurs or rubs Abdomen: soft, non-tender, nondistended, normal bowel sounds Extremities: no deformities, moves all extremities symmetrically Psych: Agitated and combative when stimulated Medications Administered Discontinued Medications Generic Name Dose Route Start Last Admin Trade Name Freq PRN Reason Stop Dose Admin Diphenhydramine HCl 50 mg 08/09/24 16:21 08/09/24 16:32 Diphenhydramine Hcl 50 Mg/Ml Vial IM 08/09/24 16:22 50 mg ONCE STA Administration Haloperidol Lactate 10 mg 08/09/24 16:21 08/09/24 16:31 Haloperidol Lactate 5 Mg/Ml Vial IM 08/09/24 16:22 10 mg STAT STA Administration Haloperidol Lactate 10 mg 08/09/24 17:07 08/09/24 18:04 Haloperidol Lactate 5 Mg/Ml Vial IM 08/09/24 17:08 10 mg STAT STA Administration Sodium Chloride 1,000 mls @ 999 mls/hr 08/09/24 16:21 08/09/24 20:15 Ns IV 08/09/24 17:21 Infused .Q1H1M STA Infusion Sodium Chloride 1,000 mls @ 999 mls/hr 08/09/24 20:46 08/09/24 22:37 Ns IV 08/09/24 21:46 Infused .Q1H1M STA Infusion Lorazepam 2 mg 08/09/24 16:21 08/09/24 16:32 Lorazepam 2 Mg/Ml Vial IM 08/09/24 16:22 2 mg STAT STA Administration Olanzapine 10 mg 08/09/24 22:38 08/09/24 23:35 Olanzapine 10 Mg Vial IM 08/09/24 22:39 Not Given STAT STA Medical Decision Making Medical Decision Making MDM Narrative: 76-year-old female with past medical history of diabetes, hyperlipidemia, 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 Vital signs revealed an elevated blood pressure otherwise unremarkable. Exam revealed that she was uncooperative and combative when stimulated. 16:42 Differential diagnosis: ?Includes but is not limited to stroke, subdural hematoma, intracranial hemorrhage, anemia, electrolyte abnormalities, pneumonia, urinary tract infection, myocardial infarction, myocardial ischemia Following evaluation was ordered: CBC, CMP, lactic acid, lipase, magnesium, troponin, TSH with reflex T4, urinalysis, blood cultures x2, COVID-19, influenza, RSV, CT scan of the brain, chest x-ray Patient was initially treated with the following: Haldol 10 mg IM, Benadryl 50 mg IM, Ativan 2 mg IM, normal saline x1 L Course: 16:42 The patient was combative. Given her presentation I am concerned that she may have delirium secondary to medical condition therefore I ordered chemical restraint so that we can proceed with the medical workup and also protect the staff from her violent behavior. 21:05 My interpretation patient's laboratory evaluation as follows: WBC was elevated 12,500. BUN was elevated 35 with a normal creatinine of 0.86-this is consistent with volume depletion and the patient not eating and drinking over the past several days. Patient's lactic acid is also elevated at 3.7 consistent with starvation ketosis with a normal anion gap. Patient's COVID, influenza and RSV were negative. TSH was normal. Urine specimen is pending collection I ordered a 2 L of normal saline IV and will repeat the patient's BMP the 2nd L completed 02:49 Start physician observation The patient's repeat BNP did reveal an improvement in her BUN and creatinine. Patient's lactic acid also improved 1.4 after 2 L of normal saline. CT scan of the brain revealed no acute CT scan of the brain revealed no acute findings to explain the patient's change in mental status. Chest x-ray was also unremarkable. At this time, believe the patient is medically cleared for care team evaluation for change in mental status and agitation. At the end of my shift, the patient's care was turned over to my colleague, Dr. Joel Rodriguez. Admission/Observation Consideration of admission/observation: Escalation of care including admission/observation considered (Yes) Lab Data MDM Lab Attestation statement: I reviewed the patient's lab results. 08/09/24 18:23 08/09/24 22:32 Labs: Lab Results 08/09/24 08/09/24 08/09/24 Range/Units 18:23 21:15 22:32 WBC 12.5 H (4.8-10.8) X10*3/uL RBC 4.64 (4.20-5.50) X10*6/uL Hgb 11.7 L (12.0-16.0) g/dl Hct 38.6 (37.0-47.0) % MCV 83.2 (80.0-98.0) fL MCH 25.2 L (27.0-33.0) pg MCHC 30.3 L (31.0-35.0) g/dl RDW 15.8 (11.0-16.0) % Plt Count 228 (160-400) X10*3/uL MPV 12.4 H (9.4-12.3) fL Immature Gran % (Auto) 0.4 (0.0-0.4) % Neut % (Auto) 79.9 H (45-73) % Lymph % (Auto) 10.8 L (20-40) % [place] % (Auto) 7.3 (2-11) % Eos % (Auto) 1.4 (0-4) % Baso % (Auto) 0.2 (0-2) % Lymph # (Auto) 1.4 (1.2-4.9) X10*3/uL [place] # (Auto) 0.9 (0.1-1.2) X10*3/uL Eos # (Auto) 0.2 (0.0-0.4) X10*3/uL Baso # (Auto) 0.0 (0.0-0.2) X10*3/uL Abs Immat Gran (auto) 0.05 H (0.00-0.03) X10*3/uL Absolute Neuts (auto) 10.0 H (2.0-8.3) x10*3/uL Absolute Nucleated RBC 0.000 (0.0-0.012) X10*3/uL Nucleated RBC % (auto) 0.0 (0.0-0.2) /100WBC Sodium 143 145 (135-145) mmol/L Potassium 5.3 H 3.8 D (3.3-5.1) mmol/L Chloride 106 115 H (96-108) mmol/L Carbon Dioxide 25 25 (22-29) mmol/L Anion Gap 17 9 L (12-20) BUN 35 H 29 H (9-16) mg/dL Creatinine 0.86 0.73 (0.5-1.4) mg/dL Estim Creat Clear Calc 44.0 51.9 Estimated GFR > 60 > 60 Random Glucose 197 H 144 H (60-115) mg/dL Lactic Acid 3.7 H* (0.5-2.0) mmol/L Lactic Acid F/U @ 2Hr 1.4 (0.5-2.0) mmol/L Calcium 10.1 D 8.2 L D (8.4-10.2) mg/dL Magnesium 1.9 (1.6-2.6) mg/dL Total Bilirubin 0.3 (0.0-1.0) mg/dL AST 25 (5-31) U/L ALT 12 (0-31) U/L Alkaline Phosphatase 57 (39-117) U/L Troponin I High Sens 5.4 (<3.5-17.0) ng/L Total Protein 8.1 H (6.5-8.0) g/dL Albumin 3.8 (3.5-5.0) g/dL Lipase 11 (8-78) U/L TSH 2.42 (0.32-4.0) uIU/mL Influenza Type A (PCR) NEGATIVE (Negative) Influenza Type B (PCR) NEGATIVE (Negative) RSV RNA Qual (PCR) NEGATIVE (Negative) SARS-CoV-2 RNA (RT-PCR) NEGATIVE (Negative) Radiology Impression Discussion of test interpretation with radiology: I have reviewed the radiologist's reading. Radiologist Impression: CT head/brain wo IV con IMPRESSION: 1. No acute territorial infarct, hemorrhage, or midline shift. 2. Mild bilateral periventricular and central white matter diminished attenuation likely chronic microangiopathy. 3. Old bilateral basal ganglia lacunar infarcts. 4. Mild cerebral volume loss. Dictated By: Karthik Macedo MD XR chest 1V IMPRESSION: No acute cardiopulmonary process. Dictated By: Karthik Macedo MD Discharge Plan Discharge Clinical Impression: Aggressive behavior, Noncompliance with medication regimen, Acute dehydration Patient Disposition: Still a Patient Prescriptions: No Action acetaminophen 500 mg Tablet 1,000 mg PO BID clozapine 200 mg Tablet 200 mg PO DAILY@1700 Rx Instructions: TAKES WITH 25 MG TABLET FOR TOTAL DOSE OF 225 MG clozapine 25 mg Tablet 25 mg PO DAILY@1700 Rx Instructions: TAKES WITH 200 MG TABLET FOR TOTAL DAILY DOSE OF 225 MG clozapine 50 mg Tablet 50 mg PO DAILY famotidine 20 mg Tablet 20 mg PO DAILY metformin 1,000 mg Tablet 1,000 mg PO BID sennosides [senna] 8.6 mg Tablet 17.2 mg PO BID Serevent Diskus 50 mcg/dose Blister With Device 1 inh INHALATION BID simvastatin 10 mg Tablet 10 mg PO QPM ergocalciferol (vitamin D2) 1,250 mcg (50,000 unit) Capsule 1,250 mcg PO QMONTH clopidogrel [Plavix] 75 mg tablet 75 mg PO DAILY Qty: 30 0RF Print Language: Swedish
--- NOTE | 2024-08-09 16:29 | PC.NURSE ---
pt to CT at this time.
[2024-08-09] MEDS: Haloperidol Lactate 5 MG/ML VIAL 10 MG IM ×2 (16:31→18:04)
[2024-08-09] MEDS: LORazepam 2 MG/ML VIAL IM (16:32)
[2024-08-09] MEDS: diphenhydrAMINE HCL 50 MG/ML VIAL IM (16:32)
--- NOTE | 2024-08-09 16:44 | PC.NURSE ---
spoke with Siva at [facility] for history, then spoke with Cherelle from their Mental health department, she offered additional input regarding her behavior change, she can be reached at [phone]. She did ask that a [facility] team assessment be completed if medical work up was negative. PLease call Cherelle prior to return to facility
--- NOTE | 2024-08-09 17:20 | PC.NURSE ---
pt altered, agitated, restless and combative w/ staff upon ED arrival. pt attempted to swat/hit staff. pt chemically restrained per provider order. see restraint paperwork for further details. plan of care ongoing.
--- NOTE | 2024-08-09 18:16 | P.CONGS_ITS ---
[facility] Past Medical History Medical History Anemia Chronic constipation Chronic hyponatremia COPD (chronic obstructive pulmonary disease) Dementia DM2 (diabetes mellitus, type 2) Dysphagia Edema GERD (gastroesophageal reflux disease) HLD (hyperlipidemia) Hyperkalemia Incontinence of urine in female OLVERA (nonalcoholic steatohepatitis) KEISHA (obstructive sleep apnea) Parkinsonian tremor Schizoaffective disorder Social History Social History Household Members: None Housing: Prison Housing Other:: snf. Do you presently have visiting nurse or other home services: No Unable to assess alcohol history related to: Unable to respond Alcohol intake: unknown Patient Tobacco Use Status: Tobacco use Unknown service: No Current occupational status: unemployed and disabled Meds Allergies Allergy/AdvReac Type Severity Reaction Status Date / Time MOSHE Inhibitors Allergy Unknown Unknown Verified 08/09/24 16:03 aspirin Allergy Unknown unknown Verified 08/09/24 16:03 erythromycin base Allergy Unknown unknown Verified 08/09/24 16:03 NSAIDS (Non-Steroidal Allergy Unknown Unknown Verified 08/09/24 16:03 Anti-Inflamma Penicillins Allergy Unknown unknown Verified 08/09/24 16:03 Home Medications ?Medication ?Instructions ?Recorded ?Confirmed ?Last Taken ?Type acetaminophen 500 mg tablet 1,000 mg PO BID 11/06/21 04/12/22 04/11/22 History clozapine 200 mg tablet 200 mg PO DAILY@1700 11/06/21 04/12/22 04/11/22 History clozapine 25 mg tablet 25 mg PO DAILY@1700 11/06/21 04/12/22 04/11/22 History clozapine 50 mg tablet 50 mg PO DAILY 11/06/21 04/12/22 04/11/22 History ergocalciferol (vitamin D2) 1,250 1,250 mcg PO QMONTH 11/06/21 04/12/22 03/13/22 History mcg (50,000 unit) capsule famotidine 20 mg tablet 20 mg PO DAILY 11/06/21 04/12/22 04/11/22 History metformin 1,000 mg tablet 1,000 mg PO BID 11/06/21 04/12/22 04/11/22 History salmeterol 50 mcg/dose blister 1 inh inhalation BID 11/06/21 04/12/22 04/11/22 History powder for inhalation (Serevent Diskus) sennosides 8.6 mg tablet (senna) 17.2 mg PO BID 11/06/21 04/12/22 04/11/22 History simvastatin 10 mg tablet 10 mg PO QPM 11/06/21 04/12/22 04/11/22 History Physical Exam Vital Signs: Vital Signs: Last Vital Signs Temp 97.9 F 08/09/24 15:54 Pulse 89 08/09/24 15:54 Resp 20 08/09/24 15:54 BP 194/59 H 08/09/24 15:54 BMI result Body Mass Index 26.4 Results Labs Labs: All other labs normal. Procedures Date of Service Date of Service: 08/09/24
--- NOTE | 2024-08-09 18:28 | PC.NURSE ---
2:1 assistance needed while placing IV access. 20gIV placed in the right forearm - labs obtained/sent to lab. IVF administered per provider order. pt continues to remain agitated/combative towards staff despite previous interventions. refusing vital signs aside from BP cuff that has been in place on arm since ED arrival. respirations remain even/unlabored. plan of care ongoing.
[2024-08-09 18:30] LABS: MANUAL DIFF FLAG NO
[2024-08-09] MEDS: 0.9 % Sodium Chloride 1,000 ML 999 ML IV ×2 (18:34→21:26)
[2024-08-09 18:37] LABS: Basophils Percent Auto 0.2 % (0-2); Eosinophils Absolute Auto 0.2 X10*3/uL (0.0-0.4); Eosinophils Percent Auto 1.4 % (0-4); Hematocrit 38.6 % (37.0-47.0); Hemoglobin 11.7 g/dl (12.0-16.0); Imm Gran Abs Auto 0.05 X10*3/uL (0.00-0.03); Imm Gran Pct Auto 0.4 % (0.0-0.4); Lymphocytes Absolute Auto 1.4 X10*3/uL (1.2-4.9); Lymphocytes Percent Auto 10.8 % (20-40); Mean Corpuscular HGB Conc 30.3 g/dl (31.0-35.0); Mean Corpuscular Hemoglobin 25.2 pg (27.0-33.0); Mean Corpuscular Volume 83.2 fL (80.0-98.0); Mean Platelet Volume 12.4 fL (9.4-12.3); Monocytes Absolute Auto 0.9 X10*3/uL (0.1-1.2); Monocytes Percent Auto 7.3 % (2-11); Neutrophils Percent Auto 79.9 % (45-73); Platelet Count 228 X10*3/uL (160-400); Red Blood Count 4.64 X10*6/uL (4.20-5.50); Red Cell Distribution Width 15.8 % (11.0-16.0); White Blood Count 12.5 X10*3/uL (4.8-10.8)
[2024-08-09 19:02] LABS: Troponin-I High Sensitivity 5.4 ng/L (<3.5-17.0)
--- NOTE | 2024-08-09 19:02 | PC.NURSE ---
received report from Karen Quiñones, assume care of pt at this time
[2024-08-09 19:04] VITALS: BP 179/50; PULSE 72; RESP 18
--- NOTE | 2024-08-09 19:14 | MHC.EDTECH ---
PATIENT REFUSED EKG RN AWARE
[2024-08-09 19:17] LABS: TSH reflex Free T4 2.42 uIU/mL (0.32-4.0)
[2024-08-09 19:19] VITALS: BP 141/57; RESP 16
[2024-08-09 19:25] LABS: Alanine Aminotransferase 12 U/L (0-31); Albumin Level 3.8 g/dL (3.5-5.0); Alkaline Phosphatase 57 U/L (39-117); Anion Gap 17 (12-20); Aspartate Amino Transferase 25 U/L (5-31); Bilirubin Total 0.3 mg/dL (0.0-1.0); Blood Urea Nitrogen 35 mg/dL (9-16); Calcium 10.1 mg/dL (8.4-10.2); Carbon Dioxide 25 mmol/L (22-29); Chloride 106 mmol/L (96-108); Estimated Glomerular Filt Rate > 60; Glucose Random 197 mg/dL (60-115); Lipase 11 U/L (8-78); Magnesium 1.9 mg/dL (1.6-2.6); Potassium 5.3 mmol/L (3.3-5.1); Sodium 143 mmol/L (135-145); Total Protein 8.1 g/dL (6.5-8.0)
[2024-08-09 19:27] LABS: Lactic Acid 3.7 mmol/L (0.5-2.0)
[2024-08-09 19:34] VITALS: BP 148/53; RESP 16
[2024-08-09 20:15] LABS: Influenza A PCR NEGATIVE (Negative); Influenza B PCR NEGATIVE (Negative); Resp Syncy Virus RNA Qual PCR NEGATIVE (Negative); SARS COV2 PCR INHOUSE NEGATIVE (Negative)
[2024-08-09 20:27] LABS: Reflex Lactate? Lactic Acid Added
[2024-08-09 21:46] LABS: ~Lactic Acid-LAB USE ONLY 1.4 mmol/L (0.5-2.0)
[2024-08-09 22:52] LABS: Anion Gap 9 (12-20); Blood Urea Nitrogen 29 mg/dL (9-16); Calcium 8.2 mg/dL (8.4-10.2); Carbon Dioxide 25 mmol/L (22-29); Chloride 115 mmol/L (96-108); Creatinine Clr Calc Pharmacy 51.9; Estimated Glomerular Filt Rate > 60; Glucose Random 144 mg/dL (60-115); Potassium 3.8 mmol/L (3.3-5.1); Sodium 145 mmol/L (135-145)
--- NOTE | 2024-08-10 00:10 | PC.NURSE ---
pt resting quetly on the stretcher, in front of nurse's desk, resp with ease, no s/s of acute distress
[2024-08-10 02:32] VITALS: BP 125/53; PULSE 63; RESP 16; TEMP 36.7; O2SAT 92
[2024-08-10] MEDS: Lactated Ringers 1,000 ML 150 ML IV (03:03)
[2024-08-10 08:32] VITALS: BP 150/65; PULSE 60; RESP 16; TEMP 35.2; O2SAT 96
--- NOTE | 2024-08-10 09:34 | PC.NURSE ---
patient found in grossly urine and feces soaked brief and sheets from shift prior, patient cleaned up, new linens, sheets and pads underneath her. patient now dry and clean. patient is alert to self only.
--- NOTE | 2024-08-10 11:08 | PHA.MEDREC ---
Addendum entered by Preston Almeida 08/10/24 11:18: Reviewed Original Note: Pharmacy Consult ? Medication Reconciliation Pharmacy has completed the medication reconciliation. Utilized list from [facility] to confirm med list.
--- NOTE | 2024-08-10 13:40 | PC.NURSE ---
patient incontinent of urine, patient changed and cleaned up.
[2024-08-10 16:30] VITALS: PULSE 67; RESP 16; TEMP 36.2; O2SAT 95
--- NOTE | 2024-08-10 16:31 | MHC.EDTECH ---
This pct assumed care of patient at 1500 ,RN aware not able to obtain bp ,because Pt very aggressive and combative .
--- NOTE | 2024-08-10 16:34 | MHC.EDTECH ---
unable to get urine sample because Pt very combative with care .
[2024-08-10 18:00] VITALS: RESP 15
--- NOTE | 2024-08-10 18:10 | MHC.EDTECH ---
Patient was incontinent of urine ,are given and bedding change ,Patient continue to be aggressive and combative towards staff .rn aware
[2024-08-10 19:36] VITALS: RESP 15
[2024-08-10 20:00] VITALS: BP 151/67; PULSE 94; RESP 18; TEMP 36.6; O2SAT 93
--- NOTE | 2024-08-10 20:38 | PC.NURSE ---
pt transported to [facility] and security via stretcher.
[2024-08-10 21:43] VITALS: BMI 27.3
--- NOTE | 2024-08-10 23:43 | PC.ADMIT ---
Admitted these 79 years old female patient per stretcher accompanied by staff and security from the ED with presenting problem of altered mental status x4 days, has been agitated and combative in the ED, struck provider. Patient is given in ED Haldol 10mg,Benadryl 50mg and Ativan 2 mg. IM.Patient came from [facility]. Patient has medical HX. of Diabetes, hyperlipidemia, R. sided deficit after CVA, Dysphagia. Patient arrived in the unit at 20:40h and put to bed comfortably. Upon admission pt is alert and oriented to self only, confused, agitated, uncooperative, combative,kicking and spitting on staff and not participating in the admission process. Skin check done w/ small old bruises on the R leg and IV site on the R arm wrapped w/ gauze. Pt is incontinent of urine and has a smear of BM.There is multiple excoriation and small superficial open areas on the coccyx cleansed and protective cream applied. Pt unable to sign the legal papers due to confusion. Pt. is on Sec. 12-B. Dr Jackson notified of admission and made new orders.
--- NOTE | 2024-08-11 10:10 | PC.NURSE ---
Pt refused all morning meds including vital signs. Pt irritable this morning, self-dialoguing in bedroom, laying in bed under blankets. Pt said leave me alone and go away on several occasions when tw attempted to introduce herself to pt. Pt also refused breakfast this morning.
--- NOTE | 2024-08-11 14:31 | HO.PSYADMNOT ---
HPI Date of Service: 08/11/24 Chief Complaint: Psychosis Sources of Information: patient interviewed, chart reviewed and crisis/core team assessment reviewed HPI Subjective Notes: Section 12B Healthcare Proxy: Yes Guardianship: Yes Narrative: The patient is a 79-year-old female, resident of [facility] for several years with a past history of schizophrenia, chronically mentally ill with [facility] court order and guardianship, chronically mentally ill who had been stable for several years living admission care. The patient was brought on a Section 12 from the [facility] facility to our emergency room since the patient was more disorganized, and cooperative, violent against staff and noncompliant with medications. She was assessed by the crisis team and referred into this facility for psychiatric stabilization. On admission the patient was very uncooperative, she refused vital signs, she refused to sign any papers and she was grossly psychotic unable to participate on the intake. We try to gather collateral information and apparently the patient had been going through gradual dose reduction [address] [facility]. She used to have Clozaril 200 mg p.o. q.h.s. and he was lowered to 125 mg 3 months ago. Since the change of medications the patient progressively decompensate to the point that she was unable to do her own ADL less, she became violent and noncompliant. On the intake interview, the patient was not cooperative, she refused to elaborate and she stated that she is tired. She was looking responding to internal stimuli, unable to participate fully on the interview. She was able to contract for safety. She had been refusing to take medications and vital signs but so far she is in no acute distress. We will try to gather more collateral information. Past Psychiatric History: The patient has a chronic history of schizophrenia, she has a guardian and she had been followed by the Department of Mental Health, she also has a court order for treatment over objection in the community. We do not know when was her last admission but apparently she had been chronically mentally ill all her adult life. Medical Evaluation Reviewed: Yes [facility] Medical History Anemia Chronic constipation Chronic hyponatremia COPD (chronic obstructive pulmonary disease) Dementia DM2 (diabetes mellitus, type 2) Dysphagia Edema GERD (gastroesophageal reflux disease) HLD (hyperlipidemia) Hyperkalemia Incontinence of urine in female OLVERA (nonalcoholic steatohepatitis) KEISHA (obstructive sleep apnea) Parkinsonian tremor Schizoaffective disorder Family History: Unknown Social History: The patient is a resident of a [facility] facility with mental illness. She is at [facility] for several years. Substance History: Denies Trauma History: Denies Diagnostics Vital Signs (24Hr): Vital Signs - 24 hr 08/10/24 16:30 08/10/24 18:00 08/10/24 19:36 Temperature 97.2 F Pulse Rate 67 Respiratory Rate 16 15 15 Blood Pressure Pulse Oximetry 95 Oxygen Delivery Method Room Air 08/10/24 20:00 Temperature 97.8 F Pulse Rate 94 Respiratory Rate 18 Blood Pressure 151/67 H Pulse Oximetry 93 Oxygen Delivery Method Room Air BMI result Body Mass Index 27.3 Labs 08/09/24 18:23 08/09/24 22:32 Labs: Laboratory Results - last 48 hr 08/09/24 08/09/24 08/09/24 18:23 21:15 22:32 WBC 12.5 H RBC 4.64 Hgb 11.7 L Hct 38.6 MCV 83.2 MCH 25.2 L MCHC 30.3 L RDW 15.8 Plt Count 228 MPV 12.4 H Immature Gran % (Auto) 0.4 Neut % (Auto) 79.9 H Lymph % (Auto) 10.8 L Ida % (Auto) 7.3 Eos % (Auto) 1.4 Baso % (Auto) 0.2 Lymph # (Auto) 1.4 Ida # (Auto) 0.9 Eos # (Auto) 0.2 Baso # (Auto) 0.0 Abs Immat Gran (auto) 0.05 H Absolute Neuts (auto) 10.0 H Absolute Nucleated RBC 0.000 Nucleated RBC % (auto) 0.0 Sodium 143 145 Potassium 5.3 H 3.8 D Chloride 106 115 H Carbon Dioxide 25 25 Anion Gap 17 9 L BUN 35 H 29 H Creatinine 0.86 0.73 Estim Creat Clear Calc 44.0 51.9 Estimated GFR > 60 > 60 Random Glucose 197 H 144 H Lactic Acid 3.7 H* Lactic Acid F/U @ 2Hr 1.4 Calcium 10.1 D 8.2 L D Magnesium 1.9 Total Bilirubin 0.3 AST 25 ALT 12 Alkaline Phosphatase 57 Troponin I High Sens 5.4 Total Protein 8.1 H Albumin 3.8 Lipase 11 TSH 2.42 Influenza Type A (PCR) NEGATIVE Influenza Type B (PCR) NEGATIVE RSV RNA Qual (PCR) NEGATIVE SARS-CoV-2 RNA (RT-PCR) NEGATIVE Imaging Radiology Impressions: ITS Impressions Head CT 08/09/24 22:30 IMPRESSION: 1. No acute territorial infarct, hemorrhage, or midline shift. 2. Mild bilateral periventricular and central white matter diminished attenuation likely chronic microangiopathy. 3. Old bilateral basal ganglia lacunar infarcts. 4. Mild cerebral volume loss. Electronically signed by: Karthik Macedo MD 08/09/2024 11:27 PM EDT RP Chest X-Ray 08/09/24 22:55 IMPRESSION: No acute cardiopulmonary process. Electronically signed by: Karthik Macedo MD 08/09/2024 11:59 PM EDT RP Meds/Allergies Meds Home Medications ?Medication ?Instructions ?Recorded ?Confirmed ?Type acetaminophen 500 mg tablet 1,000 mg PO BID PRN Fever Or Pain 11/06/21 08/10/24 History ergocalciferol (vitamin D2) 1,250 1,250 mcg PO QMONTH 11/06/21 08/10/24 History mcg (50,000 unit) capsule famotidine 20 mg tablet 20 mg PO DAILY 11/06/21 08/10/24 History metformin 1,000 mg tablet 1,000 mg PO BID 11/06/21 08/10/24 History sennosides 8.6 mg tablet (senna) 17.2 mg PO BID 11/06/21 08/10/24 History simvastatin 10 mg tablet 10 mg PO BEDTIME 11/06/21 08/10/24 History acetaminophen 500 mg tablet 500 mg PO Q4H PRN Fever Or Pain 08/10/24 08/10/24 History bisacodyl 5 mg tablet,delayed 5 mg PO DAILY PRN Constipation 08/10/24 08/10/24 History release clozapine 100 mg tablet 100 mg PO BEDTIME 08/10/24 08/10/24 History epinephrine 0.3 mg/0.3 mL 0.3 mg IM Q10M PRN Allergic 08/10/24 08/10/24 History injection, auto-injector (EpiPen) Reaction glucagon 1 mg/0.2 mL subcutaneous 1 mg subcut Q15M PRN low suger 08/10/24 08/10/24 History auto-injector glycerin 2 drp ophthalmic (eye) BID 08/10/24 08/10/24 History naloxone 0.4 mg/mL injection 0.4 mg subcut Q2M PRN Opiate 08/10/24 08/10/24 History solution Reversal salmeterol 50 mcg/dose blister 1 inh inhalation BID 08/10/24 08/10/24 History powder for inhalation Allergies Allergies Allergy/AdvReac Type Severity Reaction Status Date / Time MOSHE Inhibitors Allergy Unknown Unknown Verified 08/09/24 16:03 aspirin Allergy Unknown unknown Verified 08/09/24 16:03 erythromycin base Allergy Unknown unknown Verified 08/09/24 16:03 NSAIDS (Non-Steroidal Allergy Unknown Unknown Verified 08/09/24 16:03 Anti-Inflamma Penicillins Allergy Unknown unknown Verified 08/09/24 16:03 Mental Status Exam Mental Status Exam Patient Appearance: Appropriate Patient Orientation: Person and Situation Level of Consciousness: Awake Patient Behavior: Guarded and Passive Mood Description: Blunted Affect Description: Labile Patient Cognition Impaired: Yes Ability to Follow Directions: Good Speech Pattern: Clear Hallucinations: Auditory Delusions: Paranoid Ideation and Ideas of Reference Thought Process: Distracted and Slowed Thinking Thought Content: positive for [place], positive for Poverty of Content, positive for Thought Blocking and positive for Tangential Judgement: Poor Assessment & Plan Assessment & Plan (1) Schizophrenia: Status: Acute Code(s): F20.9 - Schizophrenia, unspecified Plan The patient is an elderly female with a past history of schizophrenia who is a resident of [facility], admitted into this facility after she decompensated. Apparently 3 months ago they started gradual dose reduction and reduce abruptly her clozapine from 125 with a progressive decompensation with paranoia, disorganized behavior and aggressiveness. She was assessed by crisis and transferring to this facility for psychiatric stabilization. Plan 1. Gather collateral information. 2. We will need to restart Clozaril and restore up to 200 mg a day in a slow titration 3. Continue with medical workout. 4. Reassessment with results. 5. 15 minute checks since the patient is able to contract for safety Patient educated on: diagnosis Informed Consent: further education needed Reason for continued inpatient stay Substantial Risk for: harm to self, harm to others, inability to function, rapid decompensation and med/psych decompensation Statement Statement: I have reviewed the history and physical and performed a pertinent examination on my patient. No changes have occurred unless specified. If the History and Physical was not performed prior to admission, the Hospitalist's service will be consulted for completing the admission physical. Time Spent With Patient Time: Total time managing care of this patient today __45__ minutes.
--- NOTE | 2024-08-11 15:34 | PC.NURSE ---
Offered water and snacks but pt refused. With reassurance and redirection pt allowed for her IV to be taken out.
--- NOTE | 2024-08-11 17:24 | PC.NURSE ---
Attempted to educate pt that we need a urine sample for her treatment, pt however unable to participated due to her mental status.
[2024-08-11 20:00] VITALS: RESP 16
--- NOTE | 2024-08-12 10:23 | HO.PSYCHPN ---
Subjective Subjective Date of Service: 08/12/24 Reason For Visit: Psychosis Subjective Notes: Section 12B Interim History: Pt very guarded, face covered and not interested in engaging in conversation with this parts data writer. She states when questions asked that's none of your business. She declines medications, antipsychotic on her fifi's but there is no back up IM. She tells this parts data writer that you are sick, you don't sound right, there's something wrong with your voice. REM fixed- someone had entered wrong ANC reflecting neutropenia 1000, [place] [id number]. Review of Systems Review of Systems Yes all other systems are reviewed and are negative and Unobtainable due to mental condition Mental Status Exam Mental Status Exam Patient Appearance: Appropriate Patient Orientation: Person and Situation Level of Consciousness: Awake Patient Behavior: Guarded and Passive Mood Description: Blunted Affect Description: Labile Patient Cognition Impaired: Yes Ability to Follow Directions: Good Speech Pattern: Clear Diagnostics Vital Signs (24Hr): Vital Signs - 24 hr 08/11/24 20:00 Respiratory Rate 16 BMI result Body Mass Index 27.3 Labs 08/09/24 18:23 08/09/24 22:32 Imaging Radiology Impressions: ITS Impressions Head CT 08/09/24 22:30 IMPRESSION: 1. No acute territorial infarct, hemorrhage, or midline shift. 2. Mild bilateral periventricular and central white matter diminished attenuation likely chronic microangiopathy. 3. Old bilateral basal ganglia lacunar infarcts. 4. Mild cerebral volume loss. Electronically signed by: Karthik Macedo MD 08/09/2024 11:27 PM EDT RP Chest X-Ray 08/09/24 22:55 IMPRESSION: No acute cardiopulmonary process. Electronically signed by: Karthik Macedo MD 08/09/2024 11:59 PM EDT RP Medications Medications Current Medications Acetaminophen (Acetaminophen 325 Mg Tablet) 650 mg PO Q6H PRN PRN Reason: Headache/Pain Mild Scale (1-3) Al Hydroxide/Mg Hydroxide (Magnesium Hydrox/Alum Hydrox 30 Ml Oral.Susp) 30 ml PO Q6H PRN PRN Reason: Heartburn/Nausea Artificial Tears (Artificial Tears 15 Ml Drops) 2 drop EYE-BOTH BID THADDEUS Last Admin: 08/11/24 23:07 Dose: Not Given Atorvastatin Calcium (Atorvastatin Calcium 10 Mg Tablet) 10 mg PO BEDTIME [facility] Last Admin: 08/11/24 23:07 Dose: Not Given Bisacodyl (Bisacodyl 5 Mg Tablet.Dr) 5 mg PO DAILY PRN PRN Reason: Constipation Clopidogrel Bisulfate (Clopidogrel Bisulfate 75 Mg Tablet) 75 mg PO DAILY [facility] Last Admin: 08/11/24 10:10 Dose: Not Given Clozapine (Clozapine 25 Mg Tablet) 25 mg PO BEDTIME [facility] Epinephrine (Epinephrine 1 Mg/Ml Vial) 0.3 mg IM Q10M PRN PRN Reason: Allergic Reaction Ergocalciferol (Ergocalciferol (Vitamin D2) 1,250 Mcg Capsule) 1,250 mcg PO Q30D [facility] Famotidine (Famotidine 20 Mg Tablet) 20 mg PO DAILY [facility] Last Admin: 08/11/24 10:10 Dose: Not Given Lorazepam (Lorazepam 1 Mg Tablet) 1 mg PO Q6H PRN PRN Reason: Anxiety Magnesium Hydroxide (Milk Of Magnesia 30 Ml Oral.Susp) 30 ml PO DAILY PRN PRN Reason: Constipation Metformin HCl (Metformin Hcl 1,000 Mg Tablet) 1,000 mg PO BIDWM [facility] Last Admin: 08/11/24 17:23 Dose: Not Given Naloxone HCl (Naloxone Hcl 0.4 Mg/Ml Vial) 0.4 mg SUBCUT Q2M PRN PRN Reason: Opiate Reversal Olanzapine (Olanzapine Odt 10 Mg Tab.Rapdis) 10 mg TRANSLINGU Q6H PRN PRN Reason: Psychosis Salmeterol Xinafoate (Salmeterol Xinafoate 50 Mcg Blst.W.Dev) 1 puff INHALE RBID [facility] Last Admin: 08/11/24 23:07 Dose: Not Given Senna (Sennosides 8.6 Mg Tablet) 17.2 mg PO BID [facility] Last Admin: 08/11/24 23:07 Dose: Not Given Trazodone HCl (Trazodone Hcl 50 Mg Tablet) 50 mg PO BEDTIME MRX1 PRN PRN Reason: Insomnia Allergies Allergies Allergy/AdvReac Type Severity Reaction Status Date / Time MOSHE Inhibitors Allergy Unknown Unknown Verified 08/09/24 16:03 aspirin Allergy Unknown unknown Verified 08/09/24 16:03 erythromycin base Allergy Unknown unknown Verified 08/09/24 16:03 NSAIDS (Non-Steroidal Allergy Unknown Unknown Verified 08/09/24 16:03 Anti-Inflamma Penicillins Allergy Unknown unknown Verified 08/09/24 16:03 Assessment & Plan Assessment & Plan (1) Schizophrenia: Status: Acute Code(s): F20.9 - Schizophrenia, unspecified Plan The patient is an elderly female with a past history of schizophrenia who is a resident of [facility], admitted into this facility after she decompensated. Apparently 3 months ago they started gradual dose reduction and reduce abruptly her clozapine from 125 with a progressive decompensation with paranoia, disorganized behavior and aggressiveness. She was assessed by crisis and transferring to this facility for psychiatric stabilization. Plan 1. Gather collateral information. 2. We will need to restart Clozaril and restore up to 200 mg a day in a slow titration 3. Continue with medical workout. 4. Reassessment with results. 5. 15 minute checks since the patient is able to contract for safety Reason for continued inpatient stay Substantial Risk for: inability to function Time Spent With Patient Time: Total time managing care of this patient today ____ minutes.
[2024-08-12 20:00] VITALS: RESP 16
[2024-08-13 08:00] VITALS: RESP 18
--- NOTE | 2024-08-13 10:53 | PC.NURSE ---
Savanna declined to take her medications and allow vital signs despite education from this advertising writer. Dr. Bashir notified.
--- NOTE | 2024-08-13 11:10 | HO.PSYCHPN ---
Subjective Subjective Reason For Visit: Psychosis Diagnostics Vital Signs (24Hr): Vital Signs - 24 hr 08/12/24 20:00 08/13/24 08:00 Respiratory Rate 16 18 BMI result Body Mass Index 27.3 Labs 08/09/24 18:23 08/09/24 22:32 Imaging Radiology Impressions: ITS Impressions Head CT 08/09/24 22:30 IMPRESSION: 1. No acute territorial infarct, hemorrhage, or midline shift. 2. Mild bilateral periventricular and central white matter diminished attenuation likely chronic microangiopathy. 3. Old bilateral basal ganglia lacunar infarcts. 4. Mild cerebral volume loss. Electronically signed by: Karthik Macedo MD 08/09/2024 11:27 PM EDT RP Chest X-Ray 08/09/24 22:55 IMPRESSION: No acute cardiopulmonary process. Electronically signed by: Karthik Macedo MD 08/09/2024 11:59 PM EDT RP Medications Medications Current Medications Acetaminophen (Acetaminophen 325 Mg Tablet) 650 mg PO Q6H PRN PRN Reason: Headache/Pain Mild Scale (1-3) Al Hydroxide/Mg Hydroxide (Magnesium Hydrox/Alum Hydrox 30 Ml Oral.Susp) 30 ml PO Q6H PRN PRN Reason: Heartburn/Nausea Artificial Tears (Artificial Tears 15 Ml Drops) 2 drop EYE-BOTH BID [facility] Last Admin: 08/13/24 08:24 Dose: Not Given Atorvastatin Calcium (Atorvastatin Calcium 10 Mg Tablet) 10 mg PO BEDTIME [facility] Last Admin: 08/12/24 21:19 Dose: Not Given Bisacodyl (Bisacodyl 5 Mg Tablet.Dr) 5 mg PO DAILY PRN PRN Reason: Constipation Clopidogrel Bisulfate (Clopidogrel Bisulfate 75 Mg Tablet) 75 mg PO DAILY [facility] Last Admin: 08/13/24 08:24 Dose: Not Given Clozapine (Clozapine 25 Mg Tablet) 25 mg PO BEDTIME [facility] Last Admin: 08/12/24 21:32 Dose: Not Given Epinephrine (Epinephrine 1 Mg/Ml Vial) 0.3 mg IM Q10M PRN PRN Reason: Allergic Reaction Ergocalciferol (Ergocalciferol (Vitamin D2) 1,250 Mcg Capsule) 1,250 mcg PO Q30D [facility] Famotidine (Famotidine 20 Mg Tablet) 20 mg PO DAILY [facility] Last Admin: 08/13/24 08:24 Dose: Not Given Lorazepam (Lorazepam 1 Mg Tablet) 1 mg PO Q6H PRN PRN Reason: Anxiety Magnesium Hydroxide (Milk Of Magnesia 30 Ml Oral.Susp) 30 ml PO DAILY PRN PRN Reason: Constipation Metformin HCl (Metformin Hcl 1,000 Mg Tablet) 1,000 mg PO BIDWM [facility] Last Admin: 08/13/24 08:24 Dose: Not Given Naloxone HCl (Naloxone Hcl 0.4 Mg/Ml Vial) 0.4 mg SUBCUT Q2M PRN PRN Reason: Opiate Reversal Olanzapine (Olanzapine Odt 10 Mg Tab.Rapdis) 10 mg TRANSLINGU Q6H PRN PRN Reason: Psychosis Salmeterol Xinafoate (Salmeterol Xinafoate 50 Mcg Blst.W.Dev) 1 puff INHALE RBID [facility] Last Admin: 08/13/24 08:24 Dose: Not Given Senna (Sennosides 8.6 Mg Tablet) 17.2 mg PO BID [facility] Last Admin: 08/13/24 08:24 Dose: Not Given Trazodone HCl (Trazodone Hcl 50 Mg Tablet) 50 mg PO BEDTIME MRX1 PRN PRN Reason: Insomnia Allergies Allergies Allergy/AdvReac Type Severity Reaction Status Date / Time MOSHE Inhibitors Allergy Unknown Unknown Verified 08/09/24 16:03 aspirin Allergy Unknown unknown Verified 08/09/24 16:03 erythromycin base Allergy Unknown unknown Verified 08/09/24 16:03 NSAIDS (Non-Steroidal Allergy Unknown Unknown Verified 08/09/24 16:03 Anti-Inflamma Penicillins Allergy Unknown unknown Verified 08/09/24 16:03 Assessment & Plan Assessment & Plan (1) Schizophrenia: Status: Acute Code(s): F20.9 - Schizophrenia, unspecified Plan The patient is an elderly female with a past history of schizophrenia who is a resident of [facility], admitted into this facility after she decompensated. Apparently 3 months ago they started gradual dose reduction and reduce abruptly her clozapine from 125 with a progressive decompensation with paranoia, disorganized behavior and aggressiveness. She was assessed by crisis and transferring to this facility for psychiatric stabilization. Plan 1. Gather collateral information. 2. We will need to restart Clozaril and restore up to 200 mg a day in a slow titration 3. Continue with medical workout. 4. Reassessment with results. 5. 15 minute checks since the patient is able to contract for safety Time Spent With Patient Time: Total time managing care of this patient today ____ minutes.
--- NOTE | 2024-08-13 15:39 | PC.NURSE ---
Addendum entered by Nikia Gan RN 08/13/24 16:51: Change in limb which was reported below was noted by this check writer at 1515. Dr. Bashir notified and STAT hospitalist consult placed shortly thereafter at 1520. Hospitalist Gracie Yanez at beside shortly after and orders for STAT ultrasound, heparin drip, and blood draw placed. EXTRUSION PRESS ADJUSTER Gabino came to attempt IV and after three attempts was unable to place peripheral line due to combative behavior (kicking and hitting). All fluids, meals, and oral medications declined by patient despite education and encouragement. STAT ultrasound completed on unit as pump technician Savanna said Dr. Payne requested US be done STAT and another tech wouldn't be able to perform STAT if she was transferred to the medical unit at that moment. Transferred to medical unit at 1620 after ultrasound complete. Legal guardian Joy notified via telephone by this check writer at 1645. Original Note: RLE noted to be discolored and cold to touch. Weak pedal pulse and complaints of pain. Notified Dr. Bashir and STAT hospitalist consult placed and order to transfer to medicine for ischemic limb.
--- NOTE | 2024-08-13 15:40 | PM.EVENT ---
Event Note Date of Service: 08/13/24 Event Note: Consult placed to hospitalist service for evaluation of cold RLE. On exam, RLE cool, mottle, absent pedal pulse. Pt will be started on heparin drip pp now for presumed ischemic limb with arterial duplex pending. She will be transferred to medicine for further evaluation and management. Time Spent With Patient Time: Total time managing care of this patient today ____ minutes.
--- NOTE | 2024-08-13 15:55 | P.DS_ITS ---
DS: Providers Provider Date of Service: 08/13/24 Date of admission: 08/10/24 16:34 Date of discharge: 08/13/24 Primary care physician: MURIEL KENDALL Admitting clinician: Bulmaro Jackson Consults: 08/13/24 15:20 Consult to Hospitalist Stat Comment: Consulting Provider: Hospitalist Reason For Exam: nurses report acutely cold LE hx cva Attending physician on discharge: Maranda Wild Discharging clinician: Byron Bashir DS: Diagnosis Discharge Diagnosis (1) Schizophrenia: Status: Acute (2) Noncompliance with medication regimen: Status: Acute (3) Ischemic leg: Status: Acute DS: Medications Discharge Medications Home Medications: Home Medications ?Medication ?Instructions ?Recorded ?Confirmed acetaminophen 500 mg tablet 1,000 mg PO BID PRN Fever Or Pain 11/06/21 08/10/24 ergocalciferol (vitamin D2) 1,250 1,250 mcg PO QMONTH 11/06/21 08/10/24 mcg (50,000 unit) capsule famotidine 20 mg tablet 20 mg PO DAILY 11/06/21 08/10/24 metformin 1,000 mg tablet 1,000 mg PO BID 11/06/21 08/10/24 sennosides 8.6 mg tablet (senna) 17.2 mg PO BID 11/06/21 08/10/24 simvastatin 10 mg tablet 10 mg PO BEDTIME 11/06/21 08/10/24 acetaminophen 500 mg tablet 500 mg PO Q4H PRN Fever Or Pain 08/10/24 08/10/24 bisacodyl 5 mg tablet,delayed 5 mg PO DAILY PRN Constipation 08/10/24 08/10/24 release epinephrine 0.3 mg/0.3 mL 0.3 mg IM Q10M PRN Allergic 08/10/24 08/10/24 injection, auto-injector (EpiPen) Reaction glucagon 1 mg/0.2 mL subcutaneous 1 mg subcut Q15M PRN low suger 08/10/24 08/10/24 auto-injector glycerin 2 drp ophthalmic (eye) BID 08/10/24 08/10/24 naloxone 0.4 mg/mL injection 0.4 mg subcut Q2M PRN Opiate 08/10/24 08/10/24 solution Reversal salmeterol 50 mcg/dose blister 1 inh inhalation BID 08/10/24 08/10/24 powder for inhalation Previous Rx's ?Medication ?Instructions ?Recorded heparin (porcine) 25,000 unit/250 25,000 unit (250 mL) continuous IV 08/13/24 mL in 0.45 % sodium chloride IV infusion .Q0M #250 mL soln lorazepam 1 mg tablet 1 mg PO Q6H PRN Anxiety #1 tab 08/13/24 olanzapine 10 mg disintegrating 10 mg translingual Q6H PRN 08/13/24 tablet Psychosis #10 tabs sennosides 8.6 mg tablet (Senna 17.2 mg (2 x 8.6 mg) PO BID #1 tab 08/13/24 Lax) Mental Status Exam Mental Status Exam Narrative: At time patient was seen was yelling not speaking in sentences generally resistant to care difficulty moving lower extremities appeared to be in pain Data Data Completed and Pending Completed studies during hospitalization [Text1]: 08/09/24 08/09/24 08/09/24 18:23 21:15 22:32 WBC 12.5 H RBC 4.64 Hgb 11.7 L Hct 38.6 MCV 83.2 MCH 25.2 L MCHC 30.3 L RDW 15.8 Plt Count 228 MPV 12.4 H Immature Gran % (Auto) 0.4 Neut % (Auto) 79.9 H Lymph % (Auto) 10.8 L Bath % (Auto) 7.3 Eos % (Auto) 1.4 Baso % (Auto) 0.2 Lymph # (Auto) 1.4 Bath # (Auto) 0.9 Eos # (Auto) 0.2 Baso # (Auto) 0.0 Abs Immat Gran (auto) 0.05 H Absolute Neuts (auto) 10.0 H Absolute Nucleated RBC 0.000 Nucleated RBC % (auto) 0.0 Sodium 143 145 Potassium 5.3 H 3.8 D Chloride 106 115 H Carbon Dioxide 25 25 Anion Gap 17 9 L BUN 35 H 29 H Creatinine 0.86 0.73 Estim Creat Clear Calc 44.0 51.9 Estimated GFR > 60 > 60 Random Glucose 197 H 144 H Lactic Acid 3.7 H* Lactic Acid F/U @ 2Hr 1.4 Calcium 10.1 D 8.2 L D Magnesium 1.9 Total Bilirubin 0.3 AST 25 ALT 12 Alkaline Phosphatase 57 Troponin I High Sens 5.4 Total Protein 8.1 H Albumin 3.8 Lipase 11 TSH 2.42 Influenza Type A (PCR) NEGATIVE Influenza Type B (PCR) NEGATIVE RSV RNA Qual (PCR) NEGATIVE SARS-CoV-2 RNA (RT-PCR) NEGATIVE 08/09/24 18:34 Blood - Venous Blood Culture - Preliminary No growth after 48 hours. 08/09/24 18:23 Blood - Venous Blood Culture - Preliminary No growth after 48 hours. Imaging Diagnostic Imaging Impressions Head CT 08/09/24 22:30 IMPRESSION: 1. No acute territorial infarct, hemorrhage, or midline shift. 2. Mild bilateral periventricular and central white matter diminished attenuation likely chronic microangiopathy. 3. Old bilateral basal ganglia lacunar infarcts. 4. Mild cerebral volume loss. Electronically signed by: Karthik Macedo MD 08/09/2024 11:27 PM EDT RP Chest X-Ray 08/09/24 22:55 IMPRESSION: No acute cardiopulmonary process. Electronically signed by: Karthik Macedo MD 08/09/2024 11:59 PM EDT RP DS: Summary Hospital Course Hospital Course: The patient was admitted in a psychotic state generally nonverbal had been ref using all medication including clozapine patient was physically combative resistant to care including vital signs refusing her medication including Plavix her diabetes medication and inhalers. Was called to patient's bedside on 08 13 secondary to a cold right lower extremity also noted palpable object under the patient's skin on her upper right leg. Call was placed for urgent medical evaluation patient was deemed most likely to have a ischemic leg and was transferred to Medicine with possibility of transferred to tertiary care hospital case reviewed extensively with the medical service Status at Discharge Cognitive/behavioral status at discharge: Patient was nonverbal yelling having difficulty with care Functional status at discharge: bed bound Time Spent with Patient Time attestation: Total time managing care of this patient today ____ minutes. Time spent: Greater than 30 minutes Specific discharge activities: Patient physically examined case reviewed with medical staff transfer arranged Discharge Plan Discharge Anticipated Discharge Date/Time: 08/13/24 15:41 Patient Disposition: [facility] Discharge Diagnosis: schizophrenia ischemic limb noncompliance with tx Referrals: MURIEL KENDALL [Primary Care Provider] - 1 Week Discharge Medications: Discontinued clopidogrel [Plavix] 75 mg tablet 75 mg PO DAILY Qty: 30 0RF clozapine 100 mg Tablet 100 mg PO BEDTIME No Action sennosides [senna] 8.6 mg Tablet 17.2 mg PO BID acetaminophen [Tylenol] 325 mg Tablet 650 mg PO Q6H PRN (Reason: headache/mild pain scale 1-3) trazodone 50 mg Tablet 50 mg PO BEDTIME Rx Instructions: MRX1 atorvastatin 10 mg Tablet 10 mg PO BEDTIME naloxone 0.4 mg/mL Solution 0.4 mg SUBCUT Q2M PRN (Reason: Opiate Reversal) Rx Instructions: NTExceed 10 mg total dose/episode polyvinyl alcohol 1.4 % Drops 2 drp OPHTHALMIC (EYE) BID clopidogrel 75 mg tablet 75 mg PO DAILY famotidine 20 mg tablet 20 mg PO DAILY magnesium hydroxide [Milk of Magnesia] 400 mg/5 mL Suspension 30 ml PO DAILY PRN (Reason: Constipation) metformin 1,000 mg tablet 1,000 mg PO BIDWM epinephrine 0.1 mg/mL Syringe 0.3 mg IM Q10M PRN (Reason: Anaphylaxis) Rx Instructions: for 2 doses Serevent Diskus 50 mcg/dose Blister With Device 1 inh INHALATION BID olanzapine 10 mg Tablet,Disintegrating 10 mg PO Q6H PRN (Reason: Psychosis) bisacodyl 5 mg Tablet,Delayed Release (Dr/Ec) 5 mg PO DAILY PRN (Reason: Constipation) alum-mag hydroxide-simeth 200-200-20 mg/5 mL Suspension 30 ml PO Q6H PRN (Reason: Heartburn) clozapine 25 mg tablet 25 mg PO BEDTIME lorazepam 1 mg Tablet 1 mg PO Q6H PRN (Reason: Anxiety) Discharge Orders: Discharge Order (Routine); Ordered 08/13/24 Ordered By: Rob Cruz Diet: per hosp service Activity on Discharge: per hosp service Stand Alone Forms: Patient Portal Discharge page Print Language: Turkish Care Plan Goals: ischemic limb transfer to [facility] stabilize psychosis accept meds Health Concerns: ischemic limb schizophrenia Plan of Treatment: transfer med floor Assessment: medically unstable transfer med floor Discharge Date/Time: 08/13/24 16:07
== END 2024-08-13 16:07 | disposition short-term general hospital (02) | DRG 885 ==
LOC: HO.ED 08-10 02:55 → HO.PGERI 08-10 16:42
PROVIDERS: Admitting Provider Psychiatry & Neurology Psychiatry; Emergency Provider Emergency Medicine Emergency Medical Services; PCP Emergency Medicine; Visit Provider Psychiatry & Neurology Psychiatry
DX: F20.9 Schizophrenia, unspecified (principal); F03.90 Unspecified dementia, unspecified severity, without behavioral disturbance, psychotic disturbance, mood disturbance, and anxiety; I70.221 Atherosclerosis of native arteries of extremities with rest pain, right leg; Z20.822 Contact with and (suspected) exposure to COVID-19; Z79.84 Long term (current) use of oral hypoglycemic drugs; Z91.148 Patient's other noncompliance with medication regimen for other reason; Z79.899 Other long term (current) drug therapy
CPT/HCPCS: 0241U; 36415; 70450; 71045; 80048; 80053; 83605; 83690; 83735; 84443; 84484; 85025; 87040; 93926; 99285; J1200; J1630; J2060; J7120; S9485

== ENCOUNTER → 2024-08-10 16:34 | Outpatient (BNV) | payer MEDICARE, MEDICAID, SELFPAY | PROVIDERS: Admitting Provider Psychiatry & Neurology Psychiatry; Emergency Provider Emergency Medicine Emergency Medical Services; PCP Emergency Medicine; Visit Provider Psychiatry & Neurology Psychiatry | DX: F20.1 Disorganized schizophrenia (principal) | CPT/HCPCS: 90792; 99232 ==

== ENCOUNTER → 2024-08-10 16:34 | Outpatient (BNV) | payer MEDICARE, MEDICAID, SELFPAY | PROVIDERS: Admitting Provider Psychiatry & Neurology Psychiatry; Emergency Provider Emergency Medicine Emergency Medical Services; PCP Emergency Medicine; Visit Provider Psychiatry & Neurology Psychiatry | DX: F20.9 Schizophrenia, unspecified (principal); Z91.148 Patient's other noncompliance with medication regimen for other reason; I99.8 Other disorder of circulatory system | CPT/HCPCS: 99238 ==

== ENCOUNTER 2024-08-13 15:46 | Inpatient (IN) | payer MEDICARE, MEDICAID, SELFPAY ==
--- NOTE | 2024-08-13 15:56 | PM.IMHP ---
History of Present Illness Date of Service: 08/13/24 Attending physician on admission: Rob Cruz Chief Complaint: cold RLE 79-year-old female with history of [id number] type 2 diabetes, hyperlipidemia, history of CVA with sequela of right-sided hemiparesis, dysphagia initially admitted to Geriatric Psychiatry from [facility], [facility] due to altered mental status through [facility] ED. stat consult was placed hospitalist service this morning due to cool right lower extremity. The patient is unable to provide history and has been acutely agitated. However, nursing reported today that the leg appeared mottled with weak pulses. She does have a history of CVA and has been on Plavix but has been refusing medications. On my exam on saulo psych, RLE mottled and cold with white foot and absent R pedal pulse with significant TTP. There is a firm superficial mobile mass vs foreign object in the lateral R thigh without overlying skin breaks. She will be transferred to medicine for further imaging, heparin drip and probable transfer to tertiary facility for angiogram. Review of Systems Review of Systems: Yes Unobtainable due to mental status [facility] Medical History (Updated 08/13/24 @ 16:41 by Byron Bashir MD) Chronic hyponatremia Parkinsonian tremor Chronic constipation Incontinence of urine in female KEISHA (obstructive sleep apnea) Schizoaffective disorder HLD (hyperlipidemia) GERD (gastroesophageal reflux disease) DM2 (diabetes mellitus, type 2) COPD (chronic obstructive pulmonary disease) OLVERA (nonalcoholic steatohepatitis) Edema Dementia Hyperkalemia Dysphagia Anemia Social History Household Members: Unknown / Unable to assess Housing: Unknown / Unable to assess Housing Other:: longterm. Unable to assess alcohol history related to: Unable to respond Alcohol intake: unknown Patient Tobacco Use Status: Tobacco use Unknown Advance Directives: No Advance Directives Information Provided: No service: No Current occupational status: unemployed and disabled Sexual orientation: Straight/Heterosexual Meds Allergies Allergy/AdvReac Type Severity Reaction Status Date / Time MOSHE Inhibitors Allergy Unknown Unknown Verified 08/09/24 16:03 aspirin Allergy Unknown unknown Verified 08/09/24 16:03 erythromycin base Allergy Unknown unknown Verified 08/09/24 16:03 NSAIDS (Non-Steroidal Allergy Unknown Unknown Verified 08/09/24 16:03 Anti-Inflamma Penicillins Allergy Unknown unknown Verified 08/09/24 16:03 Active Medications: Current Medications Acetaminophen (Acetaminophen 325 Mg Tablet) 650 mg PO Q6H PRN PRN Reason: Pain, Mild (Pain Scale 1-3), fever or headache Calcium Carbonate (Calcium Carbonate 750 Mg Tab.Chew) 750 mg PO Q4H PRN PRN Reason: Heartburn Magnesium Hydroxide (Milk Of Magnesia 30 Ml Oral.Susp) 30 ml PO DAILY PRN PRN Reason: Constipation Melatonin (Melatonin 3 Mg Tablet) 6 mg PO BEDTIME PRN PRN Reason: Insomnia Sodium Chloride (0.9 % Sodium Chloride Flush 3 Ml Syringe) 3 ml IVFLUSH QSHIFT [facility] Home Medications ?Medication ?Instructions ?Recorded ?Confirmed ?Last Taken ?Type acetaminophen 325 mg tablet 650 mg PO Q6H PRN headache/mild 08/13/24 08/13/24 Unknown History (Tylenol) pain scale 1-3 aluminum-mag hydroxide-simethicone 30 ml PO Q6H PRN Heartburn 08/13/24 08/13/24 Unknown History 200 mg-200 mg-20 mg/5 mL oral susp atorvastatin 10 mg tablet 10 mg PO BEDTIME 08/13/24 08/13/24 Unknown History bisacodyl 5 mg tablet,delayed 5 mg PO DAILY PRN Constipation 08/13/24 08/13/24 Unknown History release clopidogrel 75 mg tablet 75 mg PO DAILY 08/13/24 08/13/24 Unknown History clozapine 25 mg tablet 25 mg PO BEDTIME 08/13/24 08/13/24 Unknown History epinephrine 0.1 mg/mL injection 0.3 mg IM Q10M PRN Anaphylaxis 08/13/24 08/13/24 Unknown History syringe famotidine 20 mg tablet 20 mg PO DAILY 08/13/24 08/13/24 Unknown History lorazepam 1 mg tablet 1 mg PO Q6H PRN Anxiety 08/13/24 08/13/24 Unknown History magnesium hydroxide 400 mg/5 mL 30 ml PO DAILY PRN Constipation 08/13/24 08/13/24 Unknown History oral suspension (Milk of Magnesia) metformin 1,000 mg tablet 1,000 mg PO BIDWM 08/13/24 08/13/24 Unknown History naloxone 0.4 mg/mL injection 0.4 mg subcut Q2M PRN Opiate 08/13/24 08/13/24 Unknown History solution Reversal olanzapine 10 mg disintegrating 10 mg PO Q6H PRN Psychosis 08/13/24 08/13/24 Unknown History tablet polyvinyl alcohol 1.4 % eye drops 2 drp ophthalmic (eye) BID 08/13/24 08/13/24 Unknown History salmeterol 50 mcg/dose blister 1 inh inhalation BID 08/13/24 08/13/24 Unknown History powder for inhalation (Serevent Diskus) sennosides 8.6 mg tablet (senna) 17.2 mg PO BID 08/13/24 08/13/24 Unknown History trazodone 50 mg tablet 50 mg PO BEDTIME 08/13/24 08/13/24 Unknown History Physical Exam Vital Signs and Narrative: Constitutional - Awake and Alert, No apparent distress Eyes - PERRLA, EOMI Cardiovascular - S1S2, RRR, No edema Respiratory - Normal lung expansion, Normal respiratory effort, No respiratory distress, CTA bilaterally Gastrointestinal - NT / ND; +BS; No rebound or guarding Extremities - RLE mottled and cold to the touch with pale foot and absent R pedal pulse and significant ttp. Hard mobile mass/foreign body lateral R thigh Neurological - Alert & oriented x3, CN II-XII in tact, 5/5 strength BUE and BLE Psychological - Appropriate affect Assessment and Plan (1) Ischemic leg: Status: Acute Plan 79-year-old female with history of [id number] type 2 diabetes, hyperlipidemia, history of CVA with sequela of right-sided hemiparesis, dysphagia initially admitted to Geriatric Psychiatry from [facility] due to altered mental status through [facility] ED. stat consult was placed hospitalist service this morning due to cool right lower extremity. She is being transferred to [facility] for further evaluation and management of acute RLE ischemia. #Acute ischemia RLE -stat arterial duplex ordered -Initiate heparin drip per protocol -discussed with Dr. Choi, vascular surgery, pt will require transfer for angiogram -has been refusing plavix #Acute decompensated schizophrenia -On saulo-psych, clozaril resumed with goal to restroe up to 200mg a day with slow titration. However, pt refusing meds -olanzepine prn for agitation #Non insulin dependent type 2 diabetes -diabetic diet, poc glucose, ssi #Hx CVA/HLD -statin, plavix DVt prophylaxis- heparin drip full code Patient transferred from Geriatric Psychiatry due to acute ischemic limb of the RLE on heparin drip awaiting transfer to tertiary facility for for further management Quality Stroke Does the patient have a stroke diagnosis?: No VTE Prior VTE?: No VTE Risk Level:: Medical - moderate - high VTE Device Contraindication: Treatment Not Indicated VTE Drug Contraindication: N/A - Med Ordered
--- OUTSIDE RECORDS SUMMARY | 2024-08-13 16:12 | XMS_ITS | Continuity of Care Document ---
Author Organization [facility] Address [address] [place] [address] [address] [place] [address]- Care Team Providers Care Welcome Desk Agent Name Role Phone Debra Limon MD Primary Care Physician [phone] Encounter [facility] Date(s): 03/06/23 - 04/05/[address] [place], [place] [address] Attending Physician: AdmNiyah suarez Admitting Physician: AdmtrNiyah Referring Physician: Admtr, Niyah Allergies, Adverse Reactions, Alerts Substance Reaction Severity Status erythromycin Active aspirin Active penicillins Active NSAIDs Active MOSHE inhibitors Active Immunizations Given and Recorded Vaccine Date Status Refusal Reason pneumococcal 13-valent vaccine 11/24/15 Recorded Medications Acetaminophen = 1,000 mg, By Mouth, 2 times a day, 0 Refills, Maintenance, 02/23/16 2:36:50 EDT Start Date: 02/23/16 Status: Ordered Acetaminophen = 500 mg, By Mouth, Every 4 hours, PRN Pain , Mild, 0 Refills, Maintenance, 06/06/19 1:08:18 EDT Start Date: 06/06/19 Status: Ordered albuterol 0.083% inhalation solution 3 mL = 2.5 mg, Inhalation, Every 4 hours, PRN for wheezing, # 25 each, 0 Refills, Maintenance, 02/23/16 2:22:09, Solution Start Date: 02/23/16 Status: Ordered amLODIPine 5 mg oral tablet 5 mg, 1, tablet, By Mouth, Daily, Refills 0, Maintenance, 06/10/19 7:51:39 EDT Start Date: 06/10/19 Status: Ordered Ativan 0.5 mg oral tablet 1 tablet = 0.5 mg, By Mouth, Daily, PRN Other, PRN prior to lab draws, if patient refuses, 0 Refills, Maintenance, 02/23/16 2:18:41 EDT, Tablet Start Date: 02/23/16 Status: Ordered Ativan 0.5 mg oral tablet 1 tablet = 0.5 mg, By Mouth, Daily, # 12 tablet, 0 Refills, Maintenance, 02/24/16 12:18:25, Tablet Start Date: 02/24/16 Status: Ordered Bisacodyl Supp 1 supp, Rectally, Every other day, PRN Constipation, # 10 supp, 0 Refills, Maintenance, 02/23/16 2:40:52, Suppository Start Date: 02/23/16 Status: Ordered Clozapine = 225 mg, By Mouth, Daily at bedtime, 0 Refills, Maintenance, 02/23/16 2:15:35 Start Date: 02/23/16 Status: Ordered clozapine 25 mg oral tablet 2 tablet = 50 mg, By Mouth, 3 times a day, 0 Refills, Maintenance, 11/21/22 14:08:00 EST, Partial fill upon patient request if the prescription is for a schedule II opioid drug. Start Date: 11/21/22 Status: Ordered Clozaril 25 mg oral tablet 2 tablet = 50 mg, By Mouth, Daily, # 42 tablet, 0 Refills, Maintenance, 02/23/16 2:16:42 EDT, Tablet Start Date: 02/23/16 Status: Ordered docusate sodium 100 mg oral tablet 2 tablet = 200 mg, By Mouth, Daily at bedtime, PRN for constipation, # 100 tablet, 0 Refills, Maintenance, 02/23/16 2:42:26, Tablet Start Date: 02/23/16 Status: Ordered Duoneb Inhalation Solution 3, mL, Neb, Every 4 hours, PRN, Refills 0, Maintenance, 02/24/16 11:30:08, Inhalation Solution Start Date: 02/24/16 Status: Ordered Fleet Enema 19 gm-7 gm rectal enema 1 each, Rectally, Once, PRN as needed for constipation, # 118 mL, 0 Refills, Maintenance, 02/23/16 2:44:02, Enema Start Date: 02/23/16 Status: Ordered Guaifenesin = 100 mg, By Mouth, Every 4 hours, PRN as needed for congestion, 0 Refills, Maintenance, 06/06/19 1:15:27 EDT Start Date: 06/06/19 Status: Ordered haloperidol 1 mg oral tablet 0.5 mg, By Mouth, Daily, # 60 tablet, Refills 0, Maintenance, 06/06/19 0:49:47 EDT Start Date: 06/06/19 Status: Ordered LORazepam 0.5 mg oral tablet 1 tablet = 0.5 mg, By Mouth, Every 6 hours, PRN Agitation, # 12 tablet, 0 Refills, Maintenance, 02/24/16 12:19:25, Tablet Start Date: 02/24/16 Status: Ordered Maalox Max 30 mL, By Mouth, Every 6 hours, PRN as needed for indigestion, 0 Refills, Maintenance, 02/23/16 2:37:39 Start Date: 02/23/16 Status: Ordered Metformin By Mouth, 0 Refills, Maintenance, 11/21/22 14:08:00 EST, Partial fill upon patient request if the prescription is for a schedule II opioid drug. Start Date: 11/21/22 Status: Ordered metFORMIN 1000 mg oral tablet 1 tablet = 1,000 mg, By Mouth, 2 times a day, # 180 tablet, 0 Refills, Maintenance, 02/23/16 2:17:54, Tablet Start Date: 02/23/16 Status: Ordered Milk of Magnesia Liquid 30 mL, By Mouth, Daily at bedtime, PRN as needed for constipation, 0 Refills, Maintenance, 162:34:32 Start Date: 02/23/16 Status: Ordered Ranitidine = 150 mg, By Mouth, Daily, 0 Refills, Maintenance, 06/06/19 1:04:06 EDT Start Date: 06/06/19 Status: Ordered salmeterol 50 mcg inhalation powder 1 each = 50 mcg, Inhalation, Every 12 hours, # 180 each, 0 Refills, Maintenance, 02/23/16 2:33:41, Powder Start Date: 02/23/16 Status: Ordered senna 17.2 mg oral tablet 1 tablet = 17.2 mg, By Mouth, Daily, PRN for constipation, # 12 tablet, 0 Refills, Maintenance, 02/23/16 2:30:00, Tablet Start Date: 02/23/16 Status: Ordered simvastatin 20 mg oral tablet 20 mg, 1, tablet, By Mouth, Daily at bedtime, # 30 tablet, Refills 0, Maintenance, 02/23/16 2:39:01 Start Date: 02/23/16 Status: Ordered Vitamin D3 = 50,000 International_Units, By Mouth, Every 28 days, due on 06/11, 0 Refills, Maintenance, 06/06/19 1:03:03 EDT Start Date: 06/06/19 Status: Ordered Social History Social History Type Response Smoking Status Never (less than 100 in lifetime) entered on: 11/21/22 Sex Patient Care team information Care Team Personnel Name: Vinh MOURA, Anai Position: [facility] RN Member Role: Primary Care Nurse Name: Debra Limon MD Position: [facility] Outreach Member Role: PCP Address: Address: [address] [place] [address] [place] [address]- Care Team Related Persons Name: ALISSON CAMPOS Address: home [address] [address] Name: GILMAR GARVIN
--- OUTSIDE RECORDS SUMMARY | 2024-08-13 16:12 | XMS_ITS | Continuity of Care Document ---
Author Organization [facility] Address [address] [place] [address] [address] [place] [address]- Care Team Providers Care Trailer Assembler Name Role Phone Debra Limon MD Primary Care Physician Encounter [facility] Date(s): 11/14/22 - 12/14/[address] [place], [place] [address] Allergies, Adverse Reactions, Alerts Substance Reaction Severity [...] Care team information Care Team Personnel Name: Anai Justice RN Position: [facility] RN Member Role: Primary Care Nurse Name: Debra Limon MD Position: [facility] Outreach Member Role: PCP Address: Address: [address] [place] [address] [place] [address]- Care Team Related Persons Name: ALISSON CAMPOS Address: home [address] [place] [address] Name: GILMAR GARVIN
--- OUTSIDE RECORDS SUMMARY | 2024-08-13 16:12 | XMS_ITS | Continuity of Care Document ---
Author Organization [facility] Address [address] [place] [address] [address] [place] [address]- Care Team Providers Care Principal Software Architect Name Role Phone Debra Limon MD Primary Care Physician Encounter [facility] Date(s): 11/21/22 - 12/21/[address] [place], [place] [address] Attending Physician: AdmNiyah suarez Admitting Physician: AdmtrNiyah [...] Team Personnel Name: Vinh MOURA, Anai Position: [facility] RN Member Role: Primary Care Nurse Name: Debra Limon MD Position: [facility] Outreach Member Role: PCP Address: Address: [address] [place] [address] [place] [address]- Care Team Related Persons Name: ALISSON CAMPOS Address: home [address] [address] Name: GILMAR GARVIN
--- OUTSIDE RECORDS SUMMARY | 2024-08-13 16:12 | XMS_ITS | Continuity of Care Document ---
Author Organization [facility] Address [address] [place] [address] [address] [place] [address]- Care Team Providers Care Tiler'S Assistant Name Role Phone Debra Limon MD Primary Care Physician Encounter [facility] Date(s): 04/21/23 - 05/21/[address] [place], [place] [address] Allergies, Adverse Reactions, Alerts Substance Reaction Severity [...] Team Personnel Name: Anai Justice RN Position: [facility] RN Member Role: Primary Care Nurse Name: Debra Limon MD Position: [facility] Outreach Member Role: PCP Address: Address: [address] [place] [address] [place] [address]- Care Team Related Persons Name: ALISSON CAMPOS Address: home [address] [place] [address] Name: GILMAR GARVIN
--- OUTSIDE RECORDS SUMMARY | 2024-08-13 16:12 | XMS_ITS | Continuity of Care Document ---
Author Organization [facility] Address [address] [place] [address]- Care Team Providers Care Metal Storage Worker Name Role Phone Debra Limon MD Primary Care Physician Encounter [facility] Date(s): 02/05/23 - 03/07/23 [facility] [address] [place], [place] [address] Attending Physician: Niyah Edwards Admitting Physician: AdmtrNiyah Referring Physician: Admtr, Ar8 Allergies, Adverse Reactions, Alerts Substance Reaction Severity [...] Team Personnel Name: Vinh MOURA, Anai Position: [facility] RN Member Role: Primary Care Nurse Name: Debra Limon MD Position: [facility] Outreach Member Role: PCP Address: Address: [address] [place] [address] [place] [address]- Care Team Related Persons Name: ALISSON CAMPOS Address: [address] [place] [address] Name: GILMAR GARVIN
--- OUTSIDE RECORDS SUMMARY | 2024-08-13 16:12 | XMS_ITS | Continuity of Care Document ---
Author Organization [facility] Address [address] [place] [address] [address] [place] [address]- Care Team Providers Care Washing Machine Mechanic Name Role Phone Debra Limon MD Primary Care Physician [place] [facility] [place] 10/13/23 - 10/20/[address] [place], [place] [address] Attending Physician: Tera Mcmullen MD Referring Physician: Debra Limon MD Allergies, Adverse Reactions, Alerts Substance Reaction Severity [...] 1:03:03 EDT Start Date: 06/06/19 Status: Ordered Problem List Condition Confirmation Course Effective Dates Status Health St atus Informant Obese class I Confirmed Active Vital Signs Most recent to oldest [Reference Range]: 1 Height 145 cm (10/13/23 10:26 AM) Weight 63.18 kg (10/13/23 10:26 AM) Pulse Rate [55-90 bpm] 73 bpm (10/13/23 10:26 AM) Body Mass Index [18.5-24.99 kg/m2] 30.05 kg/m2 *>HHI* (10/13/23 10:26 AM) Blood Pressure [90-138/55-84 mm Hg] 108/ 66mm Hg (10/13/23 10:26 AM) Respiratory Rate [16-30 br/min] 16 br/mi n (10/13/23 10:26 AM) Temperature [96.8-100.4 DegF] 97.1 DegF (10/13/23 10:26 AM) Blood pressure sites Arm, left (10/13/23 10:26 AM) Temperature Route Temporal (10/13/23 10:26 AM) Weight Obtained Via Patient/family state d (10/13/23 10:26 AM) Social History Social History Type Response Smoking Status Never (less than 100 in lifetime) entered on: 11/21/22 Sex Patient Care team information Care Team Personnel Name: Vinh MOURA, Anai Position: [facility] RN Member Role: Primary Care Nurse Name: Debra Limon MD Position: [facility] Outreach Member Role: PCP Address: Address: [address] [place] [address] [place] [address]- Care Team Related Persons Name: ALISSON CAMPOS Address: home [address] [facility], [facility] Name: GILMAR GARVIN
--- OUTSIDE RECORDS SUMMARY | 2024-08-13 16:12 | XMS_ITS | Continuity of Care Document ---
Author Organization [facility] Address [address] [place] [address] [address] [place] [address]- Care Team Providers Care Employment Specialist/Program Manager Name Role Phone Debra Limon MD Primary Care Physician [place] [facility] [place] - 12/21/[address] [place] [address]- Allergies, Adverse Reactions, Alerts Substance Reaction Severity Status erythromycin Active aspirin Active MOSHE inhibitors Active NSAIDs Active penicillins Active Immunizations Given and Recorded Vaccine Date [...] Team Personnel Name: Anai Justice RN Position: [facility] RN Member Role: Primary Care Nurse Name: Debra Limon MD Position: [facility] Outreach Member Role: PCP Address: Address: [address] [place] [address] [place] [address]- Care Team Related Persons Name: ALISSON CAMPOS Address: home [address] [place] [address] Name: GILMAR GARVIN
--- OUTSIDE RECORDS SUMMARY | 2024-08-13 16:12 | XMS_ITS | Continuity of Care Document ---
Author Organization [facility] Address [address] [place] [address] [address] [place] [address]- Care Team Providers Care Matte Cutter Name Role Phone Debra Limon MD Primary Care Physician [phone] [place] [facility] [place] - 11/28/[address] [place] [address]- Attending Physician: Tera Mcmullen MD Referring Physician: [...] 1:03:03 EDT Start Date: 06/06/19 Status: Ordered Vital Signs Most recent to oldest [Reference Range]: 1 Height 145 cm (11/21/22 10:44 AM) Weight 57.27 kg (11/21/22 10:44 AM) Pulse Rate [55-90 bpm] 75 bpm (11/21/22 10:44 AM) Body Mass Index [18.5-24.99 kg/m2] 27.24 kg/m2 *H* (11/21/22 10:44 AM) Blood Pressure [90-138/55-84 mm Hg] 111/ 72mm Hg (11/21/22 10:44 AM) Respiratory Rate [16-30 br/min] 16 br/mi n (11/21/22 10:44 AM) Temperature [96.8-100.4 DegF] 96.1 DegF *L* (11/21/22 10:44 AM) Blood pressure sites Arm, left (11/21/22 10:44 AM) Temperature Route Temporal (11/21/22 10:44 AM) Weight Obtained Via Standing scale (11/21/22 10:44 AM) Social History Social History Type Response Smoking Status Never (less than 100 in lifetime) entered on: 11/21/22 Sex Patient Care team information Care Team Personnel Name: Anai Justice RN Position: [facility] RN Member Role: Primary Care Nurse Name: Debra Limon MD Position: [facility] Outreach Member Role: PCP Address: Address: [address] [place] [address] [place] [address]- Care Team Related Persons Name: ALISSON CAMPOS Address: home [address] [place] [address] Name: GILMAR GARVIN
--- OUTSIDE RECORDS SUMMARY | 2024-08-13 16:13 | XMS_ITS | Continuity of Care Document ---
Author Organization [facility] ter Address [address] [place] [address]- Care Team Providers Care Transition Assistant Name Role Phone Debra Limon MD Primary Care Physician [place] [facility] [place] - 03/13/[address] [address] Attending Physician: Tera Mcmullen MD Admitting Physician: Tera Mcmullen MD Allergies, Adverse Reactions, Alerts Substance Reaction [...] Team Personnel Name: Vinh MOURA, Anai Position: [facility] RN Member Role: Primary Care Nurse Name: Debra Limon MD Position: [facility] Outreach Member Role: PCP Address: Address: [address] [place] [address] [place] [address]- Care Team Related Persons Name: ALISSON CAMPOS Address: home [address] [place] [address] Name: GILMAR GARVIN
--- OUTSIDE RECORDS SUMMARY | 2024-08-13 16:13 | XMS_ITS | Continuity of Care Document ---
Author Organization [facility] Address [address] [place] [address] [address] [place] [address]- Care Team Providers Care Mathematical Physicist Name Role Phone Debra Limon MD Primary Care Physician Encounter [facility] Date(s): 10/13/23 - 11/12/[address] [place], [place] [address] Attending Physician: AdmNiyah suarez Admitting Physician: AdmtrNiyah Referring Physician: Admtr, [id number] [...] atus Informant Obese class I Confirmed Active Social History Social History Type Response Smoking Status Never (less than 100 in lifetime) entered on: 11/21/22 Sex Patient Care team information Care Team Personnel Name: Vinh MOURA, Anai Position: [facility] RN Member Role: Primary Care Nurse Name: Debra Limon MD Position: [facility] Outreach Member Role: PCP Address: Address: [address] [place] [address] Physical Therapy [place], [place] [address] Care Team Related Persons Name: ALISSON CAMPOS Address: [place] [address] Name: GILMAR GARVIN
--- OUTSIDE RECORDS SUMMARY | 2024-08-13 16:13 | XMS_ITS | Continuity of Care Document ---
Author Organization [facility] Address [address] [place] [address] [address] [place] [address]- Care Team Providers Care Launch Check Out Name Role Phone Debra Limon MD Primary Care Physician Encounter [facility] [place] Date(s): 12/22/22 - 04/05/[address] [place] [address]- Attending Physician: Huan Mena MD Referring Physician: Debra Limon MD Allergies, [...] Team Personnel Name: Vinh MOURA, Anai Position: [facility] RN Member Role: Primary Care Nurse Name: Debra Limon MD Position: [facility] Outreach Member Role: PCP Address: Address: [address] [place] [address] [place] [address]- Care Team Related Persons Name: ALISSON CAMPOS Address: home [address] [place] [address] Name: GILMAR GARVIN
--- OUTSIDE RECORDS SUMMARY | 2024-08-13 16:13 | XMS_ITS | Continuity of Care Document ---
Author Organization [facility] Address [address] [place] [address]- Care Team Providers Care Police Sergeant Name Role Phone Debra Limon MD Primary Care Physician [phone] En[place] [facility] [place]s): 06/27/20 - 06/27/[address] [address]- [facility] [phone] Discharge Disposition: A-Transfer SNF Attending Physician: Robby Chatterjee MD Admitting Physician: Robby Chatterjee MD Referring Physician: Not on Staff, Referring MD Allergies, Adverse Reactions, Alerts Substance Reaction Severity Status erythromycin Active aspirin Active penicillins Active NSAIDs Active MOSHE inhibitors Active Immunizations Given and Recorded Vaccine Date Status Refusal Reason pneumococcal 13-valent vaccine 11/24/15 Recorded Medications Acetaminophen = 500 mg, By Mouth, Every 4 hours, PRN Pain , Mild, 0 Refills, Maintenance, 06/06/19 1:08:18 EDT Start Date: 06/06/19 Status: Ordered Acetaminophen = 1,000 mg, By Mouth, 2 times a day, 0 Refills, Maintenance, 02/23/16 2:36:50 EDT Start Date: 02/23/16 Status: Ordered albuterol 0.083% inhalation solution 3 [...] 02/23/16 2:15:35 Start Date: 02/23/16 Status: Ordered Clozaril 25 mg oral tablet [...] 02/23/16 2:37:39 Start Date: 02/23/16 Status: Ordered metFORMIN 1000 mg oral tablet [...] 1:03:03 EDT Start Date: 06/06/19 Status: Ordered Results Radiology Reports * Exam Date Time Procedure Performing Provider Status 06/27/20 5:51 AM Tibia/Fibula 2 Views Right Ryan , Rache l Osorio; Auth (Verified) Notes: (Tibia/Fibula 2 Views Right) Reason For Exam: with Pain;Trauma RESULT: Tibia/Fibula 2 Views Right Tibia/Fibula 2 Views Right Hx of Present Illness: Unwitnessed fall from residential COMPARISON: None. FINDINGS: No fractures or bone lesions. Visualized joints are normal. Normal soft tissues. Vascular calcifications. IMPRESSION: No acute fracture or dislocation. I have personally reviewed the images and I agree with this report. WSN: [id number] Ordering Physician: Ruby Birch Dictated By: Katheryn Ruggiero MD Dictated Date/Time: 06/27/20 9:03 am Reviewed By: Marshall Scott MD Signed By: Marshall Scott MD Signed Date/Time: 06/27/20 9:08 am Transcribed By: JOSAFAT Transcribed Date/Time: 06/27/20 8:31 am Vital Signs Most recent to oldest [Reference Range]: 1 2 3 Height 158 cm (06/27/20 10:09 AM) 158 cm (06/27/20 5:30 AM) Weight 73.5 kg (06/27/20 10:09 AM) 73.5 kg (06/27/20 5:30 AM) Oxygen Saturation [94-100 %] 97 % (06/27/20 10:09 AM) 96 % (06/27/20 6:38 AM) 98 % (06/27/20 6:14 AM) Pulse Rate [55-90 bpm] 74 bpm (06/27/20 10:09 AM) 71 bpm (06/27/20 6:38 AM) 72 bpm (06/27/20 6:14 AM) Body Mass Index [18.5-24.99] 29.44 *H* (06/27/20 10:09 AM) Blood Pressure [90-138/55-84 mm Hg] 167/80mm Hg *H* (06/27/20 10:09 AM) 169/67mm Hg *H* (06/27/20 6:38 AM) 180/69mm Hg *H* (06/27/20 6:14 AM) Respiratory Rate [16-30 br/min] 16 br/min (06/27/20 10:09 AM) 18 br/min (06/27/20 6:38 AM) 17 br/min (06/27/20 6:14 AM) Temperature [96.8-100.4 DegF] 97 DegF (06/27/20 10:09 AM) 96.9 DegF (06/27/20 5:30 AM) Mode of Delivery (Oxygen) Room air (06/27/20 10:09 AM) Room air (06/27/20 6:38 AM) Room air (06/27/20 6:14 AM) Blood pressure sites Arm, left (06/27/20 6:38 AM) Arm, left (06/27/20 6:14 AM) Arm, left (06/27/20 5:30 AM) Temperature Route Oral (06/27/20 10:09 AM) Oral (06/27/20 5:30 AM) Dry Weight 73.5 kg (06/27/20 10:09 AM) 73.5 kg (06/27/20 5:30 AM)
--- NOTE | 2024-08-13 16:27 | PC.NURSE ---
Patient's gold colored wrist watch sent with patient to [employer] [employer] today.
--- NOTE | 2024-08-13 16:35 | PHA.MEDREC ---
Pharmacy Consult ? Medication Reconciliation Pharmacy has completed the medication reconciliation. Patient transferred from [facility]
--- NOTE | 2024-08-13 16:42 | PM.DS ---
DS: Providers Provider Date of Service: 08/13/24 Date of admission: 08/13/24 15:46 Date of discharge: 08/13/24 Primary care physician: Unknown Physician Admitting clinician: Gracie Yanez Attending physician on admission: Rob Cruz Attending physician on discharge: Rob Cruz Discharging clinician: Gracie Yanez DS: Transfer Hospital Acceptance Reason for Transfer: acute ischemic limb RLE Name of Facility: [facility] DS: Summary Hospital Course Hospital Course: HPI on admission: 79-year-old female with history of jet-qnpntoo-[id number] type 2 diabetes, hyperlipidemia, history of CVA with sequela of right-sided hemiparesis, dysphagia initially admitted to Geriatric Psychiatry from SNF, [facility] due to altered mental status through [facility]. stat consult was placed hospitalist service this morning due to cool right lower extremity. The patient is unable to provide history and has been acutely agitated. However, nursing reported today that the leg appeared mottled with weak pulses. She does have a history of CVA and has been on Plavix but has been refusing medications. On my exam on [facility] psych, RLE mottled and cold with white foot and absent R pedal pulse with significant TTP. There is a firm superficial mobile mass vs foreign object in the lateral R thigh without overlying skin breaks. She will be transferred to medicine for further imaging, heparin drip and probable transfer to tertiary facility for angiogram. Hospital Course: 79-year-old female with history of jwf-rbpfyep-xcwqqijnw type 2 diabetes, hyperlipidemia, history of CVA with sequela of right-sided hemiparesis, dysphagia transferred from geriatric psychaitry to med/[facility] acutely due to RLE ischemia. Per RN, around 1515 today, noted mottling of the RLE which was noted to be cold with pallor of the R foot. Stat hospitalist consult immediately placed. RLE arterial duplex wet read shows clot from the GALLEY STRIPPER to distal SHOT DROPPER, , iliac or external iliac arteries not visible due to patient's discomfort and combativeness. The patient had been admitted to Geriatric Psychiatry due to acutely decompensated schizophrenia. Vascular surgery was immediately consulted and heparin drip was ordered. Per vascular surgery, unable to perform angiogram at our facility due to absence of IR/fluoroscopy team recommending transfer for procedure to be performed. Call placed to [facility] who has accepted the patient for transfer. She will be transferred via EMS on heparin drip per protocol with bolus. Due to acute agitation, patient sitter was ordered and she received 2mg IV morphine prior to transfer #Acute ischemia RLE -stat arterial duplex ordered: FINDINGS: RIGHT LOWER EXTREMITY DUPLEX ULTRASOUND: Common femoral artery: No flow visualized. Profunda femoris artery: Not visualized by the technologist. Superficial femoral artery (proximal): No flow visualized. Superficial femoral artery (mid): No flow visualized. Superficial femoral artery (distal): No flow visualized. Popliteal artery: No flow visualized. Posterior tibial artery: No flow visualized. US/US arterial duplex LE RT IMPRESSION: No arterial flow within the right lower extremity could not be visualized by the technologist. Cannot exclude complete occlusion. -Initiate heparin drip per protocol -discussed with Dr. Choi, vascular surgery, pt will require transfer for angiogram ad IR/fluoroscopy team unavailable -has been refusing plavix -Pt to transfer to [facility] on heparin drip for further management of acute ishcemic limb #Acute decompensated schizophrenia -On [facility]-psych, clozaril resumed with goal to restroe up to 200mg a day with slow titration. However, pt refusing meds -olanzepine prn for agitation, sitter ordered #Non insulin dependent type 2 diabetes -diabetic diet, poc glucose, ssi #Hx CVA/HLD -statin, plavix Time Attestation Discharge Coordination Time (in mins): 35 Quality: Safe Use of Opioids Does Pt have an Active Cancer Diagnosis on the Problem List?: No Quality: Stroke Does the patient have a stroke diagnosis?: No DS: Data Data Completed and Pending Completed studies during hospitalization [Text1]: Procedures Introduction of Other Thrombolytic into Peripheral Vein, Percutaneous Approach (11/06/21) Discharge Plan Discharge Anticipated Discharge Date/Time: 08/13/24 16:52 Patient Disposition: Xfer Acute Care Hospital Discharge Diagnosis: RLE ischemia Referrals: Physician,Unknown J [Primary Care Provider] - 1 Week Discharge Medications: Continued sennosides [senna] 8.6 mg Tablet 17.2 mg PO BID acetaminophen [Tylenol] 325 mg Tablet 650 mg PO Q6H PRN (Reason: headache/mild pain scale 1-3) trazodone 50 mg Tablet 50 mg PO BEDTIME Rx Instructions: MRX1 atorvastatin 10 mg Tablet 10 mg PO BEDTIME naloxone 0.4 mg/mL Solution 0.4 mg SUBCUT Q2M PRN (Reason: Opiate Reversal) Rx Instructions: NTExceed 10 mg total dose/episode polyvinyl alcohol 1.4 % Drops 2 drp OPHTHALMIC (EYE) BID clopidogrel 75 mg tablet 75 mg PO DAILY famotidine 20 mg tablet 20 mg PO DAILY magnesium hydroxide [Milk of Magnesia] 400 mg/5 mL Suspension 30 ml PO DAILY PRN (Reason: Constipation) metformin 1,000 mg tablet 1,000 mg PO BIDWM epinephrine 0.1 mg/mL Syringe 0.3 mg IM Q10M PRN (Reason: Anaphylaxis) Rx Instructions: for 2 doses Serevent Diskus 50 mcg/dose Blister With Device 1 inh INHALATION BID olanzapine 10 mg Tablet,Disintegrating 10 mg PO Q6H PRN (Reason: Psychosis) bisacodyl 5 mg Tablet,Delayed Release (Dr/Ec) 5 mg PO DAILY PRN (Reason: Constipation) alum-mag hydroxide-simeth 200-200-20 mg/5 mL Suspension 30 ml PO Q6H PRN (Reason: Heartburn) clozapine 25 mg tablet 25 mg PO BEDTIME lorazepam 1 mg Tablet 1 mg PO Q6H PRN (Reason: Anxiety) Discharge Orders: Discharge Order (Routine); Ordered 08/13/24 Ordered By: Gracie Yanez Diet: Advance to usual diet Activity on Discharge: As tolerated Stand Alone Forms: Patient Portal Discharge page Print Language: Solomon Islander Care Plan Goals: Transferred to [facility] on heparin drip per protocol with bolus for further evaluation and management of acute right lower extremity ischemia Health Concerns: Right lower extremity ischemia Plan of Treatment: Continue heparin drip. Transferred to [facility] Assessment: See discharge summary
[2024-08-13 16:57] LABS: MANUAL DIFF FLAG NO
[2024-08-13 17:02] LABS: INTERNATIONAL NORM RATIO 1.1 (0.9-1.1); Prothrombin Time 12.7 SEC (10.9-12.4)
[2024-08-13 17:05] LABS: PTT Heparin Drip 24.3 SEC (53-77.9)
[2024-08-13 17:14] LABS: Anion Gap 20 (12-20); Blood Urea Nitrogen 32 mg/dL (9-16); Calcium 9.8 mg/dL (8.4-10.2); Carbon Dioxide 22 mmol/L (22-29); Chloride 107 mmol/L (96-108); Estimated Glomerular Filt Rate 54; Glucose Random 190 mg/dL (60-115); Potassium 3.9 mmol/L (3.3-5.1); Sodium 145 mmol/L (135-145)
[2024-08-13 17:35] LABS: Basophils Percent Auto 0.3 % (0-2); Eosinophils Absolute Auto 0.1 X10*3/uL (0.0-0.4); Eosinophils Percent Auto 0.6 % (0-4); Hematocrit 38.2 % (37.0-47.0); Hemoglobin 11.9 g/dl (12.0-16.0); Imm Gran Abs Auto 0.09 X10*3/uL (0.00-0.03); Imm Gran Pct Auto 0.6 % (0.0-0.4); Lymphocytes Absolute Auto 1.5 X10*3/uL (1.2-4.9); Lymphocytes Percent Auto 10.7 % (20-40); Mean Corpuscular HGB Conc 31.2 g/dl (31.0-35.0); Mean Corpuscular Hemoglobin 24.7 pg (27.0-33.0); Mean Corpuscular Volume 79.4 fL (80.0-98.0); Mean Platelet Volume 12.9 fL (9.4-12.3); Monocytes Absolute Auto 1.2 X10*3/uL (0.1-1.2); Monocytes Percent Auto 8.6 % (2-11); Neutrophils Absolute Auto 11.1 x10*3/uL (2.0-8.3); Neutrophils Percent Auto 79.2 % (45-73); Platelet Count 260 X10*3/uL (160-400); Red Blood Count 4.81 X10*6/uL (4.20-5.50); Red Cell Distribution Width 15.5 % (11.0-16.0)
[2024-08-13] MEDS: Morphine Sulfate 2 MG/ML CARTRIDGE IVPUSH (17:36)
[2024-08-13] MEDS: Heparin Sodium,Porcine 5,000 UNIT/ML VIAL 5100 UNIT IVPUSH (17:38)
[2024-08-13] MEDS: Heparin Sodium,Porcine/1/2NS 25,000 UNIT/250 ML IV.SOLN 8.89 UNIT IVCONT (17:41)
[2024-08-13] MEDS: OLANZapine 10 MG VIAL 5 MG IM (18:45)
== END 2024-08-13 19:33 | disposition short-term general hospital (02) | DRG 300 ==
LOC: HO.EDOVER 16:10 → HO.IMC 16:17
PROVIDERS: Physician Assistant; Admitting Provider Internal Medicine; Visit Provider Internal Medicine
DX: I70.221 Atherosclerosis of native arteries of extremities with rest pain, right leg (principal); I69.351 Hemiplegia and hemiparesis following cerebral infarction affecting right dominant side; F20.9 Schizophrenia, unspecified; E11.9 Type 2 diabetes mellitus without complications; E78.5 Hyperlipidemia, unspecified; T45.526A Underdosing of antithrombotic drugs, initial encounter; Z79.899 Other long term (current) drug therapy
CPT/HCPCS: 36415; 80048; 85025; 85610; 85730; J1644; J2270; J2359

== ENCOUNTER → 2024-08-13 15:46 | Outpatient (BNV) | payer MEDICARE, MEDICAID, SELFPAY | PROVIDERS: Admitting Provider Internal Medicine; Visit Provider Physician Assistant | DX: I99.8 Other disorder of circulatory system (principal); I69.351 Hemiplegia and hemiparesis following cerebral infarction affecting right dominant side | CPT/HCPCS: 99223; 99499 ==